=== PATIENT | female | born 1950 | race Caucasian/White ===

== ENCOUNTER 2017-04-15 14:39 | Emergency (ER) | payer MEDICARE, MEDICAID, SELFPAY ==
[2017-04-15 14:39] VITALS: BP 157/71; PULSE 132; RESP 18; TEMP 36.9; O2SAT 94; BMI 24.0
[2017-04-15 14:42] VITALS: BP 134/87
--- NOTE | 2017-04-15 14:58 | EKG12_ITS ---
Test Reason : FALL Blood Pressure : / mmHG Vent. Rate : 106 BPM Atrial Rate : 106 BPM P-R Int : 146 ms QRS Dur : 066 ms QT Int : 334 ms P-R-T Axes : 071 045 070 degrees QTc Int : 443 ms Sinus tachycardia with Premature atrial complexes Otherwise normal ECG Confirmed by SONU HUGHES, JOSEPH ([id number]), design editor DEON GUNDERSON ([id number]) on 04/18/2017 11:22:59 AM Referred By: DANAE Confirmed By:JOSEPH ASCENCIO MD
--- NOTE | 2017-04-15 14:58 | CT_ITS ---
STUDY: CT BRAIN WITHOUT CONTRAST REASON FOR EXAM: Female, 67 years old. Head injury following a fall. RADIATION DOSAGE (If Supplied By Facility): CTDIvol = ( 44.99 ) mGy, DLP = ( 796.11 ) mGycm TECHNIQUE: Transaxial CT imaging of the brain was performed without administration of intravenous contrast material. Individualized dose optimization techniques were used for this CT. COMPARISON: None. FINDINGS: Normal soft tissue structures. Normal calvarium. Normal size ventricles and extra-axial spaces for the patient's age. Normal white matter tracts of the cerebral hemispheres. Normal basal ganglia and thalami. Normal brainstem. Normal cerebellum. There is no intracranial hemorrhage. There are no findings of an acute ischemic infarction. Atherosclerotic calcification of the cavernous portions of the internal carotid arteries bilaterally. Normal visualized paranasal sinuses. CT/Brain/Head without Contrast IMPRESSION: Normal unenhanced CT scan of the brain. Electronically Signed: Eyal Roa MD at 15:58 EST Tel [phone], Service support ,
--- NOTE | 2017-04-15 14:59 | RAD_ITS ---
STUDY: X-RAY - LEFT HUMERUS REASON FOR EXAM: Female, 67 years old. Left upper extremity pain and bruising following a recent fall. TECHNIQUE: 2 view(s) of the humerus. COMPARISON: None. FINDINGS: Normal visualized humerus. There is no demonstrated fracture or osseous destructive process. Calcific tendinitis. RAD/Humerus min 2 Views IMPRESSION: Calcific tendinitis. Electronically Signed: Eyal Roa MD at 15:53 EST Tel [phone], Service support ,
[2017-04-15] MEDS: 0.9% Normal Saline 1,000 ML 1000 ML IV (15:26)
[2017-04-15 15:27] VITALS: PULSE 110; RESP 19; O2SAT 93
[2017-04-15 15:36] LABS: Absolute Lymphocyte Count 1.83 X10^3/ul (0.83-4.51); Absolute Neutrophil Count 4.2 X10^3/uL (2.0-7.7); Basophil# 0.02 X10^3/uL; Basophil% 0.3 % (0-1); Eosinophil# 0.04 X10^3/uL; Eosinophils% 0.6 % (0-5); Hematocrit 46.6 % (37-47); Lymphocyte # 1.83 X10^3/ul (4.0); Mean Corp Hgb Conc 34.3 g/gl (32-36); Mean Corpuscular Hgb 31.6 pg (27.0-32.0); Mean Corpuscular Volume 92.1 fL (81-99); Mean Platelet Vol. 9.8 fl (6.2-12.0); Monocyte# 0.65 X10^3/uL; Monocyte% 9.6 % (0-10); Neutrophil # 4.23 X10^3/uL (2.7-7.7); Neutrophil % 62.4 % (47-70); Platelet Count 248 K/mm3 (150-450); RBC Distribution Width CV 12.9 % (11.6-14.6); Red Blood Count 5.06 M/mm3 (4.2-5.4); White Blood Count 6.8 K/mm3 (4.4-11.0)
[2017-04-15 15:42] LABS: POSITIVE COUNT NO; POSITIVE DIFFERENTIAL NO; POSITIVE MORPHOLOGY NO
[2017-04-15 15:47] LABS: Anion Gap 9 (5-15); BUN 11 mg/dL (7-18); BUN/Creat Ratio 12.6 RATIO (10-20); Chloride 101 mmol/L (98-107); Creatinine, Serum 0.88 mg/dL (0.55-1.02); EST Glomerular Filtration Rate 69 mL/min (>60); Est Glom Filt Rate - Afr Amer 83 mL/min (>60); Estimated Creatinine Clearance 59.67 ml/min; Glucose 112 mg/dL (70-110); Potassium 4.2 mmol/L (3.5-5.1); Sodium Level 134 mmol/L (136-145)
--- NOTE | 2017-04-15 16:53 | ED.VISSUMM ---
- ER Visit Summary Date of Service: 04/15/17 Chief Complaint: Fall History of Present Illness: The patient is a [address] Leary. She reports that 2 days ago she stood up from the commode was very lightheaded and fell forward in 2 the shower. She hit her head. She states that she saw stars and was days. She did not have a loss of consciousness. She is not on blood thinners. However, she reports she has a headache it is 8 out of 10 severity. She also has left shoulder pain is 8 out of 10 severity. She denies any neck, back, wrist, or hip pain. States that she has been nauseated since that time. She has not vomited. Physical Examination: Vitals: 98.5, 134/87, 134, 19, 93% on room air which is not hypoxic. Head: Superficial laceration over her left eyebrow with minimal surrounding contusion. Mild tenderness palpation over the right parietal area of her scalp. Neck: No vertebral tenderness. Full ROM without difficulty. Cleared by NEXUS criteria. Back: No vertebral tenderness. General: A&O x 3. NAD. Cardiovascular exam: Regular rate and rhythm, no murmur, rub or gallop. Respiratory exam: Chest nontender. No crepitus. Clear to auscultation bilaterally. No wheezes or stridor. Abdominal exam: Soft, nontender, nondistended, normal bowel sounds. No pain in RUQ or LUQ specifically. No peritoneal signs. Extremity: Large contusion over her left deltoid with mild tenderness palpation. Decreased range of motion secondary to pain. Test Results: Due to the patient's tachycardia and EKG was obtained. Shows sinus tachycardia at 106 with PACs and no acute changes. CBC is marked for hemoglobin of 16. Chem-7 is more for sodium 134 and glucose of 112. CT brain shows no acute disease. Left shoulder x-ray shows calcific tendinitis and no acute disease. Emergency Department Course and Treatment: Patient refused pain and nausea medications. She is resting comfortably. Treatment Plan: She will be discharged with [place] and Zofran. Instructed to follow-up her primary care physician 1 week for another exam. Return to the emergency department for any worsening symptoms. Disposition: To home in improved and stable condition. Impression: 1. Fall. 2. Concussion. 3. Contusion left shoulder. 4. Sinus tachycardia. This note was generated with [employer] dictation software. It may contain incorrect words, spelling, and punctuation that were not noted in review of the chart prior to signing ED Disposition - Plan for ED Patient: Chief Complaint: Fall Instructions: ED Shoulder Pain UKO, ED Concussion Prescriptions: Hydrocodone Bitart/Apap 5-325 [[place] 5/325] 1 - 2 tablet PO Q4H PRN PRN #20 tablet PRN Reason: Pain Ondansetron [Zofran Odt] 4 mg PO Q8H PRN PRN #10 tablet PRN Reason: Nausea Docusate Sodium [Colace] 100 mg PO DAILY #20 capsule Referrals: Carisa Boggs, ADMINISTRATIVE EXECUTIVE-C [Primary Care Provider] - 1 Week
--- NOTE | 2017-04-15 16:58 | ED.DCSUM_ITS ---
- ER Visit Summary Date of Service: 04/15/17 Chief Complaint: Fall History of Present Illness: The patient is a [address] Leary. She reports that 2 days ago she stood up from the commode was very lightheaded and fell forward in 2 the shower. She hit her head. She states that she saw stars and was days. She did not have a loss of consciousness. She is not on blood thinners. However, she reports she has a headache it is 8 out of 10 severity. She also has left shoulder pain is 8 out of 10 severity. She denies any neck, back, wrist, or hip pain. States that she has been nauseated since that time. She has not vomited. Physical Examination: Vitals: 98.5, 134/87, 134, 19, 93% on room air which is not hypoxic. Head: Superficial laceration over her left eyebrow with minimal surrounding contusion. Mild tenderness palpation over the right parietal area of her scalp. Neck: No vertebral tenderness. Full ROM without difficulty. Cleared by NEXUS criteria. Back: No vertebral tenderness. General: A&O x 3. NAD. Cardiovascular exam: Regular rate and rhythm, no murmur, rub or gallop. Respiratory exam: Chest nontender. No crepitus. Clear to auscultation bilaterally. No wheezes or stridor. Abdominal exam: Soft, nontender, nondistended, normal bowel sounds. No pain in RUQ or LUQ specifically. No peritoneal signs. Extremity: Large contusion over her left deltoid with mild tenderness palpation. Decreased range of motion secondary to pain. Test Results: Due to the patient's tachycardia and EKG was obtained. Shows sinus tachycardia at 106 with PACs and no acute changes. CBC is marked for hemoglobin of 16. Chem-7 is more for sodium 134 and glucose of 112. CT brain shows no acute disease. Left shoulder x-ray shows calcific tendinitis and no acute disease. Emergency Department Course and Treatment: Patient refused pain and nausea medications. She is resting comfortably. Treatment Plan: She will be discharged with [place] and Zofran. Instructed to follow-up her primary care physician 1 week for another exam. Return to the emergency department for any worsening symptoms. Disposition: To home in improved and stable condition. Impression: 1. Fall. 2. Concussion. 3. Contusion left shoulder. 4. Sinus tachycardia. This note was generated with [employer] dictation software. It may contain incorrect words, spelling, and punctuation that were not noted in review of the chart prior to signing ED Disposition - Plan for ED Patient: Chief Complaint: Fall Instructions: ED Shoulder Pain UKO, ED Concussion Prescriptions: Hydrocodone Bitart/Apap 5-325 [[place] 5/325] 1 - 2 tablet PO Q4H PRN PRN #20 tablet PRN Reason: Pain Ondansetron [Zofran Odt] 4 mg PO Q8H PRN PRN #10 tablet PRN Reason: Nausea Docusate Sodium [Colace] 100 mg PO DAILY #20 capsule Referrals: Carisa Boggs, [employer]SP[employer] DRIVER-C [Primary Care Provider] - 1 Week
[2017-04-15 17:06] VITALS: BP 139/77; PULSE 81; RESP 16; O2SAT 98
== END 2017-04-15 17:07 | disposition home or self-care (01) ==
PROVIDERS: Emergency Provider Emergency Medicine; Family Provider Nurse Practitioner Family; PCP Nurse Practitioner Family
DX: S06.0X0A Concussion without loss of consciousness, initial encounter (principal); S01.112A Laceration without foreign body of left eyelid and periocular area, initial encounter; S40.012A Contusion of left shoulder, initial encounter; R00.0 Tachycardia, unspecified; I49.1 Atrial premature depolarization; M75.32 Calcific tendinitis of left shoulder; R40.2410 Glasgow coma scale score 13-15, unspecified time; J44.9 Chronic obstructive pulmonary disease, unspecified; I10 Essential (primary) hypertension; W18.2XXA Fall in (into) shower or empty bathtub, initial encounter; Y93.9 Activity, unspecified; Y92.9 Unspecified place or not applicable; Z90.89 Acquired absence of other organs; Z90.49 Acquired absence of other specified parts of digestive tract; Z90.710 Acquired absence of both cervix and uterus; Z72.89 Other problems related to lifestyle; F17.210 Nicotine dependence, cigarettes, uncomplicated; Z79.899 Other long term (current) drug therapy
CPT/HCPCS: 70450; 73060; 80048; 85025; 93005; 96360; 96361; 99283

== ENCOUNTER → 2017-07-05 10:24 | Outpatient (CLI) | payer MEDICARE, MEDICAID, SELFPAY ==
--- NOTE | 2017-07-05 10:54 | RAD_ITS ---
STUDY: X-RAY CHEST REASON FOR EXAM: Female, 67 years old. Preoperative evaluation. TECHNIQUE: PA and lateral views of the chest. COMPARISON: Comparison is made with prior study dated March 29, 2017. FINDINGS: Stable mild increased linear markings at the lung bases suggestive scarring. Scattered calcified granulomas. There is no demonstrated pleural abnormality. Normal size heart. Normal mediastinum and tanya. Normal visualized pulmonary arteries. There is atherosclerotic calcification of the aortic arch with tortuosity. There is demineralization of the osseous structures. Increased kyphosis. Normal visualized ribs, clavicles, and shoulders. There is no demonstrated abnormality of the visualized soft tissue structures of the upper abdomen. RAD/Chest PA and Lateral IMPRESSION: Stable examination. No acute abnormality is seen. Electronically Signed: Eyal Roa MD at 13:57 EDT Tel [phone], Service support ,
--- NOTE | 2017-07-05 11:01 | EKG12_ITS ---
Test Reason : PREOP Blood Pressure : / mmHG Vent. Rate : 085 BPM Atrial Rate : 085 BPM P-R Int : 156 ms QRS Dur : 080 ms QT Int : 340 ms P-R-T Axes : 063 027 057 degrees QTc Int : 404 ms Normal sinus rhythm Nonspecific ST segment abnormality Abnormal ECG Confirmed by SONU HUGHES, JOSEPH ([id number]), sound editor DEON GUNDERSON ([id number]) on 07/08/2017 2:45:47 PM Referred By: Bryant Do Confirmed By:JOSEPH ASCENCIO MD
[2017-07-05 11:37] LABS: Hematocrit 45.8 % (37-47); Hemoglobin 15.8 g/dl (12.0-15.0); Mean Corp Hgb Conc 34.5 g/gl (32-36); Mean Corpuscular Hgb 32.4 pg (27.0-32.0); Mean Platelet Vol. 10.1 fl (6.2-12.0); Platelet Count 259 K/mm3 (150-450); RBC Distribution Width CV 13.4 % (11.6-14.6); RBC Distribution Width SD 44.4 fl (35.1-43.9); Red Blood Count 4.87 M/mm3 (4.2-5.4); White Blood Count 5.8 K/mm3 (4.4-11.0)
[2017-07-05 11:39] LABS: Scan Indicated on CBC? Y/N NO
[2017-07-05 11:52] LABS: Anion Gap 8 (5-15); BUN 11 mg/dL (7-18); BUN/Creat Ratio 11.9 RATIO (10-20); Calcium,Total 8.9 mg/dL (8.5-10.1); Chloride 104 mmol/L (98-107); Creatinine, Serum 0.93 mg/dL (0.55-1.02); EST Glomerular Filtration Rate 64 mL/min (>60); Est Glom Filt Rate - Afr Amer 78 mL/min (>60); Glucose 104 mg/dL (74-106); Potassium 4.5 mmol/L (3.5-5.1); Sodium Level 136 mmol/L (136-145)
== END ==
PROVIDERS: Family Provider Nurse Practitioner Family; PCP Nurse Practitioner Family; Visit Provider Physician Assistant
DX: Z01.810 Encounter for preprocedural cardiovascular examination (principal); Z01.818 Encounter for other preprocedural examination; F17.200 Nicotine dependence, unspecified, uncomplicated
CPT/HCPCS: 36415; 71046; 80048; 85027; 93005

== ENCOUNTER → 2017-12-10 07:14 | Outpatient (CLI) | payer MEDICARE, MEDICAID, SELFPAY ==
--- NOTE | 2017-12-10 07:18 | BI_ITS ---
MAMMOGRAPHY - BILATERAL SCREENING REASON FOR EXAM: Female, 67 years old. Routine annual screening examination. PERTINENT HISTORY: Aunt with breast cancer. Prior right excisional breast biopsy. TECHNIQUE: Digital bilateral breast alyssia (3D mammographic acquisition) in the CC and MLO projections. 2-D mediolateral oblique (MLO) and craniocaudad (CC) views of both breasts were obtained. CAD: Full Field Digital Mammography with Computer Added Detection was performed. COMPARISON: Comparison is made with prior study dated August 04, 2015 and May 27, 2014. FINDINGS: Breast Composition: The breasts are almost entirely fatty. A tissue clip marker is seen in the upper lateral deep portion of the right breast. There are no dominant masses or suspicious calcifications. No other significant abnormalities are identified. There has been no significant change since the prior study. BI/SCREENING MAMM (CAD), BILAT IMPRESSION: Stable bilateral screening mammogram. Yearly follow-up mammogram recommended. (A) ASSESSMENT CATEGORY: BIRADS Category 2: Benign. A letter regarding these results will be sent to the patient by the facility within 30 days. Approximately 10% of breast cancers are not detected by mammography. A normal mammogram should not delay biopsy of a clinically suspicious abnormality. [id number] Electronically Signed: Eyal Roa MD at 8:27 EDT Tel [phone], Service support ,
== END ==
PROVIDERS: Family Provider Nurse Practitioner Family; PCP Nurse Practitioner Family
DX: Z12.31 Encounter for screening mammogram for malignant neoplasm of breast (principal)
CPT/HCPCS: 77063; 77067

== ENCOUNTER 2018-02-02 19:40 | Emergency (ER) | payer OTHER, SELFPAY ==
[2018-02-02 19:40] VITALS: BP 121/87; PULSE 97; RESP 15; TEMP 36.4; BMI 24.1
--- NOTE | 2018-02-02 19:52 | RAD_ITS ---
STUDY: X-RAY - LEFT FOOT CLINICAL: Female, 67 years old. Trauma TECHNIQUE: 3 view(s) of the foot. COMPARISON: None. FINDINGS: There is no evidence of acute fracture or dislocation. There is an osteochondroma noted in the fifth metatarsal. There are erosive changes noted in the fifth toe. There are moderate degenerative changes in the midfoot. RAD/Foot min 3 Views IMPRESSION: No acute fracture or dislocation. Moderate degenerative changes. Osteochondroma of the fifth metatarsal. Erosive changes in the left fifth toe. Electronically Signed: Arun Rowland, at 20:16 EST Tel , Service support ,
--- NOTE | 2018-02-02 20:04 | ED.VISSUMM ---
- ER Visit Summary Date of Service: 02/02/18 Chief Complaint: Foot injury History of Present Illness: The patient is a 67 F a chair fell on her foot while she was outside smoking at a restaurant. She had no other complaints. Physical Examination: She has chronic deformity of her toes, she has tenderness over the fourth digit as well as distal fourth metatarsal region. No swelling or erythema. Emergency Department Course and Treatment: X-ray of the foot shows chronic deformity but no obvious fracture. She was reassured I will discharge in stable condition Impression: Left foot contusion This note was generated with [employer] dictation software. It may contain incorrect words, spelling, and punctuation that were not noted in review of the chart prior to signing ED Disposition - Plan for ED Patient: Disposition: Home or Assisted Living Chief Complaint: Other, Pain/Inj Instructions: ED Contusion Foot Referrals: Komal Jara DPM [STAFF PHYSICIAN] - As Needed
--- NOTE | 2018-02-02 20:09 | ED.DCSUM_ITS ---
- ER Visit Summary Date of Service: 02/02/18 Chief Complaint: Foot injury History of Present Illness: The patient is a 67 F a chair fell on her foot while she was outside smoking at a restaurant. She had no other complaints. Physical Examination: She has chronic deformity of her toes, she has tenderness over the fourth digit as well as distal fourth metatarsal region. No swelling or erythema. Emergency Department Course and Treatment: X-ray of the foot shows chronic deformity but no obvious fracture. She was reassured I will discharge in stable condition Impression: Left foot contusion This note was generated with [employer] dictation software. It may contain incorrect words, spelling, and punctuation that were not noted in review of the chart prior to signing ED Disposition - Plan for ED Patient: Disposition: Home or Assisted Living Chief Complaint: Other, Pain/Inj Instructions: ED Contusion Foot Referrals: Komal Jara DPM [STAFF PHYSICIAN] - As Needed
[2018-02-02] MEDS: Acetaminophen 500 MG Tablet 1000 MG PO (20:21)
--- NOTE | 2018-02-02 20:26 | ED.RN ---
DISCHARGE INSTRUCTIONS GIVEN TO AND REVIEWED WITH PATIENT, PATIENT DENIES QUESTIONS OR CONCERNS AND VOICES UNDERSTANDING OF DISCHARGE INSTRUCTIONS. PT AMBULATES OUT OF ROOM WITHOUT DIFFICULTY.
== END 2018-02-02 20:27 | disposition home or self-care (01) ==
PROVIDERS: Emergency Provider Emergency Medicine; Family Provider Nurse Practitioner Family; PCP Nurse Practitioner Family
DX: S90.32XA Contusion of left foot, initial encounter (principal); M20.62 Acquired deformities of toe(s), unspecified, left foot; W22.8XXA Striking against or struck by other objects, initial encounter; Y93.9 Activity, unspecified; Y92.9 Unspecified place or not applicable; I10 Essential (primary) hypertension; Z79.899 Other long term (current) drug therapy; Z72.0 Tobacco use
CPT/HCPCS: 73630; 99283

== ENCOUNTER → 2018-02-27 14:41 | Outpatient (CLI) | payer MEDICARE, MEDICAID, SELFPAY ==
[2018-02-18 14:26] VITALS: BMI 24.6
--- NOTE | 2018-02-27 14:43 | ECHOD_ITS ---
Reason For Study: CHEST PAIN Procedure This was a 2D Doppler, Color Flow transthoracic echocardiogram. Exam performed in department. Left Ventricle Normal size and thickness. The estimated ejection fraction is 65 %. Stage 1 diastolic dysfunction. No regional wall motion abnormalities noted. Right Ventricle Normal size and thickness. Normal systolic function. Atria Normal left atrium. Normal right atrium. Normal atrial septum. Mitral Valve The mitral valve is structurally normal. No prolapse or stenosis seen. Tricuspid Valve Normal tricuspid valve. Trivial tricuspid valve insufficiency. Right ventricular systolic pressure estimated to be 38 mmHg. Aortic Valve Trisinus/trileaflet aortic valve. Normal aortic valve. Pulmonic Valve Normal pulmonic valve. Great Vessels Normal aortic root. Mild atherosclerosis of the aortic arch. Normal inferior vena cava. Inferior vena cava collapse with sniff. Pericardium/Pleural No pericardial effusion. MMode/2D Measurements & Calculations LVIDd: 4.0 cm IVSd: 0.94 cm LAV(MOD-bp): 58.3 ml LVIDs: 3.0 cm LVPWd: 1.1 cm LAV(MOD-bp) Indexed: 33.8 ml/m2 RVDd: 3.2 cm FS: 26.0 % LAV(MOD-sp2): 69.5 ml LAV(MOD-sp4): 44.9 ml SV(MOD-sp4): 50.6 ml SV(sp4-el): 54.7 ml LVAd ap4: 28.6 cm2 EDV(MOD-sp4): 88.8 ml EDV(sp4-el): 94.4 ml LVAs ap4: 16.9 cm2 ESV(MOD-sp4): 38.2 ml ESV(sp4-el): 39.7 ml EF(MOD-sp4): 57.0 % EF(sp4-el): 58.0 % LA A4 area: 16.7 cm2 RA A4 area: 11.2 cm2 Time Measurements MV dec time: 0.20 sec Doppler Measurements & Calculations MV E max sarkis: 101.5 cm/sec Lat Peak E' Sarkis: 9.1 cm/sec Med Peak E' Sarkis: 7.2 cm/sec MV A max sarkis: 136.0 cm/sec E/E' lat: 11.2 E/E' med: 14.1 MV E/A: 0.75 Ao V2 max: 151.0 cm/sec LV V1 max: 132.0 cm/sec PA V2 max: 82.6 cm/sec Ao max P.1 mmHg LV V1 max P.0 mmHg TR max sarkis: 287.4 cm/sec TR max P.0 mmHg Interpretation Summary The estimated ejection fraction is 65 %. Stage 1 diastolic dysfunction. Trivial tricuspid valve insufficiency. Right ventricular systolic pressure estimated to be 38 mmHg. There is no comparison study available. The study was technically difficult. Ordering Physician: Adam Katz Referring Physician: MCKENNA JESUS Performed By: Debbie Mas RDCS
--- OUTSIDE RECORDS SUMMARY | 2018-04-15 12:00 | XMS RPT_ITS ---
:1950 Author Organization OHIP Support Name Relationship Address Phone R Unavailable Unavailable Unavailable AL, LELA Unavailable [address] + [place] [address] AL, KRYSTINA Unavailable [address] + [place] [address] R Unavailable Unavailable Unavailable AL, LELA Unavailable [address] + [place] [address] AL, KRYSTINA Unavailable [address] + [place] [address] R Unavailable Unavailable Unavailable AL, LELA Unavailable [address] + [place] [address] AL, KRYSTINA Unavailable [address] + [place] [address] R Unavailable Unavailable Unavailable AL, LELA Unavailable [address] + [place] [address] AL, KRYSTINA Unavailable [address] + [place] [address] R Unavailable Unavailable Unavailable AL, LELA Unavailable [address] + [place] [address] AL, KRYSTINA Unavailable [address] + [place] [address] R Unavailable Unavailable Unavailable AL, LELA Unavailable [address] + [place] [address] AL, KRYSTINA Unavailable [address] + [place] [address] R Unavailable Unavailable Unavailable AL, LELA Unavailable [address] + [place] [address] AL, KRYSTINA Unavailable [address] + [place] [address] R Unavailable Unavailable Unavailable AL, LELA Unavailable [address] + [place] [address] AL, KRYSTINA Unavailable [address] + [place] [address] R Unavailable Unavailable Unavailable ALGARRICKLELA Unavailable [address] + [place], [place] . KRYSTINA MELENDEZ Unavailable . + ., . . R Unavailable Unavailable Unavailable AL LELA Unavailable [address] + [place] KRYSTINA MELENDEZ Unavailable Unavailable + R Unavailable Unavailable Unavailable LA LELA Unavailable [address] + [place] PAT[place] MELENDEZA Unavailable Unavailable + R Unavailable Unavailable Unavailable AL LELA Unavailable [address] [phone]~[facility] [place], [place] ROMY MELENDEZNDA Unavailable [address] [phone] [place], [place] R Unavailable Unavailable Unavailable AL LELA Unavailable [address] [phone]~[facility] [place] KRYSTINA MELENDEZ Unavailable [address] [phone]~[facility] [place] R Unavailable Unavailable Unavailable AL LELA Unavailable [address] [phone]~[facility] [place] . PATRICE MELENDEZA Unavailable [address] [phone] [place], [place] . Care Team Providers Name Role Phone Adam Katz Attending Unavailable Adam Katz Referring Unavailable Lisandro Lama Attending Unavailable Ambrose MANDUJANO Carisa Primary Care Unavailable Adam Katz Attending Unavailable Adam Katz Referring Unavailable Carisa Ortega Primary Care Unavailable Adam Katz Attending Unavailable Adam Katz Referring Unavailable Ambrose MANDUJANO, Carisa Primary Care Unavailable Adam Katz Attending Unavailable Carisa Ortega Referring Unavailable CLIN[facility], [facility] Attending Unavailable [facility], [facility] Referring Unavailable Ambrose MANDUJANO, Carisa Primary Care Unavailable Deep Ascencio Attending Unavailable Bryant Do Referring Unavailable Bryant Do Attending Unavailable Bryant Do Referring Unavailable Ambrose MANDUJANO, Carisa Primary Care Unavailable Adam Katz Attending Unavailable Adam Katz Referring Unavailable Adam Katz Attending Unavailable Swihart PROFESSOR OF ENGLISH, Carisa Referring Unavailable Adam Katz Attending Unavailable Adam Katz Ref[facility] Unavailable Swihart PROFESSOR OF ENGLISH, Carisa Consulting Unavailable Thelma Alberto Hawkins Attending Unavailable Swihart PROFESSOR OF ENGLISH, Carisa Referring Unavailable Adam Katz Attending Unavailable Adam Katz Referring Unavailable Swihart PROFESSOR OF ENGLISH, Carisa Primary Care Unavailable Adam Katz Consulting Unavailable Swihart PROFESSOR OF ENGLISH, Carisa Primary Care Unavailable Deep Wilburn Attending Unavailable PROBLEMS PROBLEMS DATE TYPE CONDITION / CODE ATTENDING STATUS SOURCE 03/28/2018 Unknown R94.39 - Abnormal Adam Katz Active [place] result of other [facility] function study / Repository R94.39(ICD-10) 03/07/2018 Unknown R07.89 - Other chest Adam Katz Active [place] pain / R07.89(ICD-10) [facility] Repository 03/07/2018 Unknown R06.09 - Other forms Adam Katz Active [place] of dyspnea / Community R06.09(ICD-10) Hospital Repository 03/07/2018 Unknown J44.9 - Chronic Adam Katz Active [place] obstructive pulmonary Community disease, unspecified / Hospital J44.9(ICD-10) Repository 03/26/2018 Unknown R07.9 - Chest pain, Adam Katz Active [place] [facility] unspecified / Community R07.9(ICD-10) Hospital Repository 02/18/2018 Unknown E78.5 - Adam Katz Active [place] Hyperlipidemia, Community unspecified / Hospital E78.5(ICD-10) Repository 02/18/2018 Unknown I10 - Essential Adam Katz Active [place] [facility] (primary) hypertension Community / I10(ICD-10) Hospital Repository 12/10/2017 Unknown Z12.31 - Encounter for CLINIC, [facility] Active [place] [facility] of [facility] / Repository Z12.31(ICD-10) 08/16/2017 Unknown R94.31 - Abnormal [place], Active [place] electrocardiogram [facility] [ECG] [EKG] / Hospital R94.31(ICD-10) Repository 08/13/2017 Unknown Z01.810 - Encounter Bryant Do Active [place] for preprocedural [facility] Hospital examination / Repository Z01.810(ICD-10) 04/15/2017 Unknown M25.519 - Pain in [place], Active [place] unspecified shoulder / [place] Community M25.519(ICD-10) Hospital Repository PROCEDURES PROCEDURES No Procedure Records FoundRESULTS RESULTS CARDIOLOGY VISIT Observed: 03/07/2018 Status: F Source: SARAH REPORT 10:12 AM [facility] REPOSITORY [facility] [address] [place] [address] OFFICE VISIT Date of Service: 03/04/18 MR#: [id number] Acct: [id number] Name: BECKI MELENDEZ Rep #: [id number] : 1950 Provider: KALINA Renee Age/Sex: 67/F Location: [facility] Status: Signed HPI HPI Details: BECKI MELENDEZ, is a 67 F who presents to the office today for a cardiovascular outpatient follow-up. He has a history of hypertension, hyperlipidemia, syncope (when standing after urinating), chest pressure, COPD, and tobacco abuse with 3-4 cigarettes/day or 1-2 packs/day for the last 50 years. She does not have a history of diabetes or previous known coronary artery disease, TIA, or CVA. After last office visit she was started on atenolol 25 mg p.o. daily. She presents today for a blood pressure check regarding this change. She underwent an echocardiogram that showed ejection fraction of 65% with stage I diastolic dysfunction. She underwent a stress echocardiogram to further evaluate chest pressure, the results are currently pending. She continues with chest pressure with rest and activity. She states lightheadedness and dizziness with position changes. She denies any SOB. She states ongoing palpitations off and on since . She denies edema, claudication, orthopnea, PND, fever, chills, blood in urine, blood in stool, myalgia, or fatigue. Intake Vital Signs03/04/18 Height 5 ft 5 in 03/04/18 Weight: 147 lb 03/04/18 Body Mass Index (BMI) 24.4 03/04/18 Blood Pressure 148/72 H Intake Visit Reasons: 2 WK BP CK PER DJN Waterproofing Mixer Required: No Accompanied by: None Is patient in pain?: No Allergies codeine Adverse Reaction (Intermediate, Verified 03/04/18 12:07) vomiting mushrooms Adverse Reaction (Severe, Uncoded 02/18/18 14:41) Vomiting, head pressure Medications Albuterol Inhaler [Ventolin Hfa (SP)] 1 - 2 puff INHALATION Q4H PRN PRN 04/15/17 [History Confirmed 03/04/18] Atorvastatin Calcium 20 mg PO QHS 04/15/17 [History Confirmed 03/04/18] Budesonide/Formoterol Fumarate [Symbicort 160-4.5 Mcg Inhaler] 12 gm IH BID 04/15/17 [History Confirmed 03/04/18] Cholecalciferol (Vitamin D3) [Vitamin D] 50,000 unit PO ROQUE 04/15/17 [History Confirmed 03/04/18] Fluoxetine HCl [Prozac] 40 mg PO DAILY 04/15/17 [History Confirmed 03/04/18] latanoprost (PF) 0.005 % eye drops 1 drp OPHTHALMIC QPM 02/17/18 [History Confirmed 03/04/18] aspirin 81 mg tablet,delayed release 81 mg PO DAILY #30 tab 02/18/18 [Rx Confirmed 03/04/18] atenolol 25 mg tablet 25 mg PO DAILY 02/18/18 [History Confirmed 03/04/18] clopidogrel 75 mg tablet 75 mg PO DAILY #30 tab 03/04/18 [Rx] losartan 25 mg tablet 50 mg PO DAILY tab 03/04/18 [History Confirmed 03/04/18] Ejection fraction %: 65 to 70 PFSH Medical History Dyspnea on exertion (Acute) Abnormal stress echo (Acute) COPD (chronic obstructive pulmonary disease) (Chronic) Hypertension (Chronic) Hyperlipidemia (Chronic) Chest discomfort (Acute) Dizziness (Acute) History of hysterectomy (Chronic) history of surgery on fingers (Chronic) Surgical History History of appendectomy (Chronic) History of cervical spinal surgery (Chronic) History of cholecystectomy (Chronic) History of left knee surgery (Chronic) History of shoulder surgery (Chronic) Family History Father , Age 93 S/P CABG x 1 CAD (coronary artery disease) Mother Pacemaker History of mechanical aortic valve replacement Hypertension Diabetes Hyperlipidemia Social History Smoking Status: Current every day smoker alcohol intake: current alcohol intake frequency: holidays/special occasions only caffeine: Yes Type: coffee Number of servings: 2 ROS Const Const: Negative for fatigue, weakness, body ache, fever(s) or chills ENT ENT: Positive for dizziness Cardio Chest Pain: Yes Palpitations: No Edema: None Muscle aches with walking: None Resp Respiratory: Negative for SOB with activity, SOB at rest, SOB orthopnea\SOB lying down or paroxysmal nocturnal dyspnea GI GI: Negative nausea, black,tarry stools, bright, red blood in stools or vomiting blood/hematemesis : Negative for hematuria or frequent nighttime urination/ nocturia Musc Musc: Negative for muscle aches/ myalgia Skin Skin: Negative non-healing lesions or rash Neuro Neuro: Positive for dizziness and lightheadedness; negative for weakness, near syncope, syncope or orthostatic symptoms Endo Endo: Negative for fatigue Allergy Allergy/Immunology: Negative for rash Cardiology Exam Const Appearance: cooperative, healthy appearing and no acute distress Nutritional Appearance: well nourished and average body habitus Orientation: alert, oriented x3 and oriented to person Head Head: normal to inspection, atraumatic and normocephalic Nose: external nose normal Face and Sinus: face symmetric Mouth: oral mucosae normal Eyes General: appearance normal, both eyes and all related structures Eyelids: eyelids normal Conjunctivae: conjunctivae normal Pupils: PERRL and normal by confrontation EOM: EOM intact bilaterally Neck Neck: normal visual inspection and full ROM Carotids: normal carotid upstroke Chest Chest inspection: normal inspection of the chest, symmetric chest movement and normal respiratory effort Auscultation: Bilateral: Clear to Auscultation Cardio Palpation: normal PMI Rate: regular rate Rhythm: regular rhythm Heart sounds: S1 normal and S2 normal; negative murmur, gallop or rub GI GI: normal to inspection, no hepatosplenomegaly and bowel sounds present Neuro General: alert, oriented x3, awake, CN's II-XI intact bilaterally and moves all extremities Skin Skin: no rashes or lesions noted Extremities Pulses: Normal: Right Posterior Tibial Pulse, Left Posterior Tibial Pulse, Right Radial Pulse, Left Radial Pulse Lower Extremity Edema: None: Bilateral Psych Psychological: normal affect Assessment AND Plan 1. Chest discomfort R07.89 Plan - [place] At the time of her office appointment her stress echocardiogram result was not finalized. By completion of this note her stress echocardiogram was considered to be abnormal. Because of this, she will undergo both a left and right heart catheterization for further evaluation. 2. Essential hypertension I10 Plan - [place] Her blood pressure remains elevated. She was asked to increase her losartan to 50 mg p.o. daily. 3. Hyperlipidemia, unspecified hyperlipidemia type E78.5 Plan - [place] She will continue current low-dose statin medication. Plan Detail Other Medications Changed: Additional Comments - [place] Discussed the above patient with Dr. Katz, he agrees with the plan of care. Thank you for allowing us to participate in the patients plan of care, if you have any questions please do not hesitate to call. This note was generated using a voice recognition system and there may be incorrect words, spelling or punctuation that were not noted when reviewing the office note prior to saving. Coding Level of Care Code Off vis,est,level 2 Diagnoses Chest discomfort R07.89 Essential hypertension I10 Hypertension type: essential hypertension Hyperlipidemia, unspecified hyperlipidemia type E78.5 Hyperlipidemia type: unspecified Coding Level of Care Code Off vis,est,level 2 Diagnoses Chest discomfort R07.89 Essential hypertension I10 Hypertension type: essential hypertension Hyperlipidemia, unspecified hyperlipidemia type E78.5 Hyperlipidemia type: unspecified 03/05/18 1243 <Electronically signed by Alberto ABRAHAM> Date Alberto ABRAHAM 03/07/18 1011<Electronically signed by Adam Katz MD> Cosigner Signature: Date (if applicable) Adam Katz MD CC: Carisa MANDUJANO OFFICE VISIT REPORT Observed: 03/07/2018 Status: F Source: SARAH 10:11 AM [place] [address]Ann[address] V[address] [place] [address] OFFICE VISIT Date of Service: 03/05/18 MR#: [id number] Acct: [id number] Patient: BECKI MELENDEZ Rep #: [id number] : 1950 Provider: Adam Katz MD Age/Sex: 67/F Location: 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 Chief Complaint: chest pressure Allergies codeine Adverse Reaction (Intermediate, Verified 03/04/18 12:07) vomiting mushrooms Adverse Reaction (Severe, Uncoded 02/18/18 14:41) Vomiting, head pressure Medications Albuterol Inhaler [Ventolin Hfa (SP)] 1 - 2 puff INHALATION Q4H PRN PRN 04/15/17 [History Confirmed 03/04/18] Atorvastatin Calcium 20 mg PO QHS 04/15/17 [History Confirmed 03/04/18] Budesonide/Formoterol Fumarate [Symbicort 160-4.5 Mcg Inhaler] 12 gm IH BID 04/15/17 [History Confirmed 03/04/18] Cholecalciferol (Vitamin D3) [Vitamin D] 50,000 unit PO ROQUE 04/15/17 [History Confirmed 03/04/18] Fluoxetine HCl [Prozac] 40 mg PO DAILY 04/15/17 [History Confirmed 03/04/18] latanoprost (PF) 0.005 % eye drops 1 drp OPHTHALMIC QPM 02/17/18 [History Confirmed 03/04/18] aspirin 81 mg tablet,delayed release 81 mg PO DAILY #30 tab 02/18/18 [Rx Confirmed 03/04/18] atenolol 25 mg tablet 25 mg PO DAILY 02/18/18 [History Confirmed 03/04/18] clopidogrel 75 mg tablet 75 mg PO DAILY #30 tab 03/04/18 [Rx] losartan 25 mg tablet 50 mg PO DAILY tab 03/04/18 [History Confirmed 03/04/18] Nursing Note Patient here for cath teaching. 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 NPO after midnight Th night, instructed which meds to take. Written instructions given. Pt watched heart cath teaching video. She will get labs and CXR done after viewing it. 03/07/18 1011 <Electronically signed by Adam Katz MD> Date Adam Guillermo Signature: Date (if applicable) CC: Greta White PROTHROMBIN TIME W/INR Collected: 03/07/2018 Status: F Source: SARAH 9:30 AM [facility] REPOSITORY TYPE CODE TESTS RESULT OUT OF RANGE REFERENCE UNITS LAB L300.4150 11.7-14.9 SECONDS Normal PROTIME 12.1 LAB L300.4200 Normal INR 0.9 Performed By: #### L300.3900, L300.4310 #### [facility] [address] [place], [place], [id number] PARTIAL THROMBOPLAST Collected: 03/07/2018 Status: F Source: SARAH TIME 9:30 AM [facility] REPOSITORY TYPE CODE TESTS RESULT OUT OF RANGE REFERENCE UNITS LAB L300.4310 24.1-36.2 Seconds Normal PTT 30.3 Performed By: #### L300.3900, L300.4310 #### [facility] [address] [place], [place], [address] CBC-COMPLETE BLOOD CNT Collected: 03/07/2018 Status: F Source: SARAH NO DIFF 9:30 AM [facility] REPOSITORY TYPE CODE TESTS RESULT OUT OF RANGE REFERENCE UNITS LAB L100.1000 4.4-11.0 K/mm3 Normal WBC 7.0 LAB L100.1200 4.2-5.4 M/mm3 Normal RBC 4.63 LAB L100.1300 12.0-15.0 g/dl Normal HGB 14.8 LAB L100.1400 37-47 % Normal HCT 44.6 LAB L100.1500 81-99 fL Normal MCV 96.3 LAB L100.1600 27.0-32.0 pg Normal MCH 32.0 LAB L100.1700 32-36 g/gl Normal MCHC 33.2 LAB L100.1810 11.6-14.6 % Normal RDW CV 13.0 LAB L100.1820 35.1-43.9 fl High RDW SD 45.1 LAB L100.1900 150-450 K/mm3 Normal PLT 268 LAB L100.2000 6.2-12.0 fl Normal MPV 10.9 Performed By: #### L100.0500 #### [facility] [address] [facility] [place], [place], [address] BASIC METABOLIC Collected: 03/07/2018 Status: F Source: SARAH PROFILE (BMP) 9:30 AM [facility] REPOSITORY TYPE CODE TESTS RESULT OUT OF RANGE REFERENCE UNITS LAB L501.0100 74-106 mg/dL Normal GLU 95 Result Comment: Please note revised GLUCOSE reference range effective 2017. LAB L501.1000 7-18 mg/dL Normal BUN 9 LAB L501.1100 0.55-1.02 mg/dL Normal CREAT,SERUM 0.75 Result Comment: The validity of the calculated GFR AND GFRAA in patients over 70 years has not been determined. Clinical correlation is essential. LAB L501.1110 >60 mL/min Normal EST GFR 82 Result Comment: Non- GFR Calc LAB L501.1115 >60 mL/min Normal EST GFR - AA 99 Result Comment: GFR Calc LAB L501.1300 10-20 RATIO Normal BUN/CRE 12.0 LAB L501.2200 8.5-10.1 mg/dL CA Normal 8.7 LAB L501.5300 136-145 mmol/L Low NA 135 LAB L501.5600 3.5-5.1 mmol/L K Normal 3.9 LAB L501.5900 98-107 mmol/L CL Normal 100 LAB L501.6100 21.0-32.0 mmol/L Normal CO2 23.0 LAB L501.6200 5-15 Normal GAP 12 Performed By: #### L500.2500 #### [facility] [address] [facility] [place], [address] BLOOD GASES BY CPS Collected: 03/07/2018 Status: F Source: SARAH 9:04 AM [facility] REPOSITORY TYPE CODE TESTS RESULT OUT OF RANGE REFERENCE UNITS LAB L9000.9990 Normal BLD GAS ART TYPE LAB L9001.1110 7.35-7.45 Normal pH - 7.38 I-STAT LAB L9001.1210 35-45 mmHg Normal pCO2 - 37.2 ISTAT LAB L9001.1310 75-100 mmHG Low PO2 56 I-STAT LAB L9001.2300 22-26 mmol/L Low HCO3 21.8 ISTAT LAB L9001.2400 -2 to +2 mmol/L Low BE ISTAT -3 LAB L9001.2415 mmol/L Normal TOTAL CO2 23 ISTAT LAB L9001.2425 95-99 % Low SO2 ISTAT 88 Performed By: #### L9000.0800 #### [facility] Point of Care [address] [place], [place] [id number] VENOUS BLOOD GAS Collected: 03/07/2018 Status: F Source: [place] 8:59 AM [facility] REPOSITORY TYPE CODE TESTS RESULT OUT OF RANGE REFERENCE UNITS LAB L9000.9990 Normal BLD GAS SHOLA TYPE LAB L9002.1110 7.32-7.42 Normal VBGpH - 7.38 I-STAT LAB L9002.1212 41-51 mmHg Low VBG pCO2 37.7 - ISTA LAB L9002.1310 25-40 mmHg Normal VBG PO2 33 I-STAT LAB L9002.2300 22-26 mmol/L Normal VBG HCO3 22 ISTAT LAB L9002.2400 -1.0-3.5 mmol/L Low VBG BE -3 ISTAT LAB L9002.2410 50-70 % Normal VBG SO2 62 ISTAT LAB L9002.2415 23-33 mmol/L Normal VBG O2 CT 23 ISTAT Performed By: #### L9000.0810 #### [facility] Point of Care [address] [place] [address] VENOUS BLOOD GAS Collected: 03/07/2018 Status: F Source: [place] 8:56 AM [facility] REPOSITORY TYPE CODE TESTS RESULT OUT OF RANGE REFERENCE UNITS LAB L9000.9990 Normal BLD GAS SHOLA TYPE LAB L9002.1110 7.32-7.42 Normal VBGpH - 7.37 I-STAT LAB L9002.1212 41-51 mmHg Low VBG pCO2 37.4 - ISTA LAB L9002.1310 25-40 mmHg Normal VBG PO2 31 I-STAT LAB L9002.2300 22-26 mmol/L Normal VBG HCO3 22 ISTAT LAB L9002.2400 -1.0-3.5 mmol/L Low VBG BE -4 ISTAT LAB L9002.2410 50-70 % Normal VBG SO2 59 ISTAT LAB L9002.2415 23-33 mmol/L Normal VBG O2 CT 23 ISTAT Performed By: #### L9000.0810 #### [facility] Point of Care [address] [place] [address] CHEST PA AND LATERAL Observed: 03/05/2018 Status: F Source: [place] 2:02 PM [facility] REPOSITORY [facility] Imaging Services [address] [place] [address] Chest PA and Lateral MR#: [id number] Acct: [id number] Name: BECKI MELENDEZ Shy Rep #: [id number] : 1950 F 67 From: Sanjeev Momin MD PCP: [facility] Status: PRE SDC Study: Chest PA and Lateral Date of Exam: 03/05/18 Exam# [id number] Ordering Dr: Adam Katz MD STUDY: X-RAY CHEST REASON FOR EXAM: Female, 67 years old. Shortness of breath. Pre-heart catheter, abnormal stress test. TECHNIQUE: PA and lateral views of the chest. COMPARISON: None. FINDINGS: The lungs are clear and expanded. There is no demonstrated pleural abnormality. Normal size heart. Normal mediastinum and tanya. Normal visualized pulmonary arteries. There is minor atherosclerotic calcification of the aortic arch and descending thoracic aorta, as well as more uniform calcification of the visualized abdominal aorta. There is a mildly exaggerated dorsal kyphosis with concomitant exaggerated anteroposterior diameter of the chest. Borderline narrowed transverse diameter of the thoracic cage. Normal visualized ribs, clavicles, and shoulders. 1.8 cm densely rim calcified oblong lesion in the left soft tissues of neck may be a calcified lymph node or calcified lesion in the left lobe of the thyroid, projecting along the left posterior margin of the trachea. The airway is intact. Surgical clips of prior cholecystectomy project in the right upper quadrant abdomen. RAD/Chest PA and Lateral IMPRESSION: 1. No acute cardiopulmonary disease. 2. 1.8 cm densely rim calcified lesion along the left posterior margin of the lower cervical trachea, possibly a lymph node or lesion in the left lobe of the thyroid gland. 3. Atherosclerotic calcification of the thoracoabdominal aorta. Electronically Signed: Trenton Momin MD at 12:27 EST , Service support , CC: Adam aKtz MD; [facility] Theatre Manager: Signed STRESS TEST ECHO W/ Observed: 03/04/2018 Status: F Source: [place] CONTRAST 5:24 PM [facility] REPOSITORY [facility] Cardiovascular Services [address] [place] [address] Stress Test Echo W/Contrast MR#: [id number] Acct: [id number] Name: BECKI MELENDEZ Rep #: [id number] : 1950 67 From: Adam Katz MD Primary Care: Carisa Ortega Status: REG CLI Ordering Dr: Adam Katz MD Sex: F C Reason For Study: SOB, Chest Pain Stress Results Protocol: Cristian Protocol Maximum Predicted HR: 155 bpm Target HR: 132 bpm % Maximum Predicted HR: 99 % DurationHeart Rate Stage (mm:ss) (bpm) BP Comment Baseline 90 158/90No Chest Pain; Diluted Definity 2 ML Given Cristian Protocol Stage I 2:38 153 204/80No Chest Pain; Severe Dyspnea; Audible Wheezes Recovery 109 148/80No Chest Pain; No Dyspnea; No Wheezes Stress Duration: 2:38 mm:ss Maximum Stress HR: 153 bpm METS: 4 Baseline Echocardiogram Findings The estimated ejection fraction is 65 %. Stress Echo Wall motion Data Resting WM Intermediate WM Stress WM Resting Wall Motion Wall Motion Stress No regional wall motion Basal anteroseptal: Mildly abnormalities noted. hypokinetic. Mid-Anterior : Mildly hypokinetic. Mid-Lateral : Mildly hypokinetic. EKG Data The baseline ECG displays normal sinus rhythm. The patient exercised according to the regular Cristian protocol for a total duration of 2:38. The maximum heart rate attained was 155 beats per minute. This was 100% of maximum predicted heart rate. The patient exercised into stage 1 of the Cristian protocol. During stress, there were no ST or T wave changes noted to suggest ischemia. No clinical angina was noted. Interpretation Summary The study was technically difficult. Contrast injection was performed. The estimated ejection fraction is 65 %. Basal anteroseptal: Mildly hypokinetic Mid-Anterior : Mildly hypokinetic Mid-Lateral : Mildly hypokinetic Abnormal, adequate, treadmill echocardiogram. Positive for ischemia by echocardiographic criteria. No anginal symptoms noted. Hypertensive blood pressure response to exercise. Poor exercise capacity for age. Patient appeared to develop mid anterior and lateral hypokinesis at peak exercise. Poor echo images requiring Definity contrast enhancing agent. Rare PVCs noted. Final LVEF of 55%. No complications. Ordering Physician: Adam Katz Referring Physician: Adam Katz Performed By: April Pappas, RDCS, RVT 03/04/181723 Date Adam Katz MD CC: Adam Katz MD; Carisa MANDUJANO Date Dictated: 03/03/18 0958 Date Transcribed: 03/04/181723 Theatre Manager: Signed ECHOCARDIOGRAM COMPLETE Observed: 02/27/2018 Status: F Source: [place] 4:14 PM [facility] REPOSITORY [facility] Cardiovascular Services [address] [place] [address] Echo Complete 02/27/18 1509 MR#: [id number] Acct: [id number] Name: BECKI MELENDEZ Rep #: [id number] : 1950 67 From: Adam Katz MD Attending Dr: Adam Katz MD Status: REG CLI Ordering Dr: Adam Katz MD Date: 02/27/18 Location: CVS Sex: F C Admitted: Reason For Study: CHEST PAIN Procedure This was a 2D Doppler, Color Flow transthoracic echocardiogram. Exam performed in department. Left Ventricle Normal size and thickness. The estimated ejection fraction is 65 %. Stage 1 diastolic dysfunction. No regional wall motion abnormalities noted. Right Ventricle Normal size and thickness. Normal systolic function. Atria Normal left atrium. Normal right atrium. Normal atrial septum. Mitral Valve The mitral valve is structurally normal. No prolapse or stenosis seen. Tricuspid Valve Normal tricuspid valve. Trivial tricuspid valve insufficiency. Right ventricular systolic pressure estimated to be 38 mmHg. Aortic Valve Trisinus/trileaflet aortic valve. Normal aortic valve. Pulmonic Valve Normal pulmonic valve. Great Vessels Normal aortic root. Mild atherosclerosis of the aortic arch. Normal inferior vena cava. Inferior vena cava collapse with sniff. Pericardium/Pleural No pericardial effusion. MMode/2D Measurements AND Calculations LVIDd: 4.0 cm IVSd: 0.94 cm LAV(MOD- bp): 58.3 ml LVIDs: 3.0 cm LVPWd: 1.1 cm LAV(MOD- bp) Indexed: 33.8 ml/m2 RVDd: 3.2 cm FS: 26.0 % LAV(MOD- sp2): 69.5 ml LAV(MOD-sp4): 44.9 ml SV(MOD-sp4): 50.6 ml SV(sp4-el): 54.7 ml LVAd ap4: 28.6 cm2 EDV(MOD-sp4): 88.8 ml EDV(sp4-el): 94.4 ml LVAs ap4: 16.9 cm2 ESV(MOD-sp4): 38.2 ml ESV(sp4-el): 39.7 ml EF(MOD-sp4): 57.0 % EF(sp4-el): 58.0 % LA A4 area: 16.7 cm2 RA A4 area: 11.2 cm2 Time Measurements MV dec time: 0.20 sec Doppler Measurements AND Calculations MV E max sarkis: 101.5 cm/sec Lat Peak E' Sarkis: 9.1 cm/sec Med Peak E' Sarkis: 7.2 cm/sec MV A max sarkis: 136.0 cm/sec E/E' lat: 11.2 E/E' med: 14.1 MV E/A: 0.75 Ao V2 max: 151.0 cm/sec LV V1 max: 132.0 cm/sec PA V2 max: 82.6 cm/sec Ao max P.1 mmHg LV V1 max P.0 mmHg TR max sarkis: 287.4 cm/sec TR max P.0 mmHg Interpretation Summary The estimated ejection fraction is 65 %. Stage 1 diastolic dysfunction. Trivial tricuspid valve insufficiency. Right ventricular systolic pressure estimated to be 38 mmHg. There is no comparison study available. The study was technically difficult. Ordering Physician: Adam Katz Referring Physician: CARISA JESUS Performed By: Debbie Mas RDCS 02/27/18 1613 Date Adam Katz MD CC: Adam Katz MD; Carisa Jesus PROFESSOR OF ENGLISH Date Dictated: 02/27/18 1509 Date Transcribed: 02/27/18 1613 Theatre Manager: Signed CARDIOLOGY VISIT Observed: 02/18/2018 Status: F Source: [place] REPORT 3:14 PM [facility] REPOSITORY [facility] [address] [place] [address]. [address] [place] [address] OFFICE VISIT Date of Service: 02/18/18 MR#: [id number] Acct: [id number] Name: BECKI MELENDEZ Rep #: [id number] : 1950 Provider: Adam Katz MD Age/Sex: 67/F [place] [facility]: Signed HPI HPI Chief Complaint: chest pressure Details: BECKI MELENDEZ, is a 67 F who presents to the office today for evaluation of syncope and chest pressure. Patient is a 67-year-old nondiabetic, current smoker of 3-4 cigarettes/day, averaged of 1-2 packs/day over the last 50 years, with hypertension, hypercholesterolemia, no previous known coronary disease, TIA or CVA. Patient reports that she had PFTs done sometime last year and was told she has COPD. She has not had a stress test in many years. Patient first noted dizziness in the spring 2017. While urinating at home she stood up became lightheaded probably had a syncopal episode and fell forward lacerating her head and causing a concussion as well as injuring her shoulder. She required surgery to correct this, and has had no syncopal episodes since that time. Patient has complained of chest heaviness and achiness on occasion about 1-2 times per week sometimes with exertion sometimes at rest. In addition she has associated diaphoresis but no nausea, vomiting or shortness of breath. In addition she feels very tired all the time and has occasionally daytime somnolence. She did have one episode which woke her up from a sound sleep about 1 month ago which she described as extreme chest pressure, but did not seek medical attention. It is not reoccurred since that time. In our office today her blood pressure is 140/60, pulse is 96 and regular. Her physical exam demonstrates clear lungs bilaterally, regular rate and rhythm, normal S1/S2, no murmurs are detected. She has no edema. Her EKG dated 07/05/17 showed normal sinus rhythm, left atrial enlargement, normal axis, normal intervals, no evidence of acute changes or previous myocardial infarction. Her most recent lipids on 01/2018 showed an HDL of 39 and an LDL of 100. Intake Vital Signs02/18/18 Height 5 ft 5 in 02/18/18 Weight: 148 lb 02/18/18 Body Mass Index (BMI) 24.6 02/18/18 Blood Pressure 140/60 H Intake Visit Reasons: DIZZINESS, CHEST DISCOMFORT (FREE CLINIC) Waterproofing Mixer Required: No Is patient in pain?: No Allergies codeine Adverse Reaction (Intermediate, Verified 02/18/18 14:41) vomiting mushrooms Adverse Reaction (Severe, Uncoded 02/18/18 14:41) Vomiting, head pressure Medications Albuterol Inhaler [Ventolin Hfa (SP)] 1 - 2 puff INHALATION Q4H PRN PRN 04/15/17 [History Confirmed 02/18/18] Atorvastatin Calcium 20 mg PO QHS 04/15/17 [History Confirmed 02/18/18] Budesonide/Formoterol Fumarate [Symbicort 160-4.5 Mcg Inhaler] 12 gm IH BID 04/15/17 [History Confirmed 02/18/18] Cholecalciferol (Vitamin D3) [Vitamin D] 50,000 unit PO ROQUE 04/15/17 [History Confirmed 02/18/18] Fluoxetine HCl [Prozac] 40 mg PO DAILY 04/15/17 [History Confirmed 02/18/18] latanoprost (PF) 0.005 % eye drops 1 drp OPHTHALMIC QPM 02/17/18 [History Confirmed 02/18/18] losartan 25 mg tablet 25 mg PO DAILY 02/17/18 [History Confirmed 02/18/18] aspirin 81 mg tablet,delayed release 81 mg PO DAILY #30 tab 02/18/18 [Rx Confirmed 02/18/18] atenolol 25 mg tablet 25 mg PO DAILY #30 tab 02/18/18 [Rx Confirmed 02/18/18] PFSH Medical History COPD (chronic obstructive pulmonary disease) (Chronic) Hypertension (Chronic) Hyperlipidemia (Chronic) Chest discomfort (Acute) Dizziness (Acute) History of hysterectomy (Chronic) history of surgery on fingers (Chronic) Surgical History History of appendectomy (Chronic) History of cervical spinal surgery (Chronic) History of cholecystectomy (Chronic) History of left knee surgery (Chronic) History of shoulder surgery (Chronic) Family History Father , Age 93 S/P CABG x 1 CAD (coronary artery disease) Mother Pacemaker History of mechanical aortic valve replacement Hypertension Diabetes Hyperlipidemia Social History Smoking Status: Current every day smoker ROS Const Const: Positive for fatigue (Extremely tired since last spring. Fell from dizziness.) and other; negative for weakness, body ache, fever(s), headache(s), chills, frequent falls, night sweats, daytime sleepiness, difficulty sleeping, excessive sweating, weight gain, weight loss, increased appetite, poor appetite or anorexia Eyes Eyes: Negative for blind spots, loss of peripheral vision, transient loss of vision, blurry vision, change in vision, double vision, floaters, tunnel vision or other ENT ENT: Negative for headache(s), dizziness, hearing loss, tinnitus, Nosebleed/epistaxis, balance problems, post nasal drip, lip swelling, tongue swelling, bleeding gums, hoarseness, neck pain, dry mouth or other Cardio Chest Pain: Yes (More recent onset than fatigue) Frequency: other (More than once a week) Character: tightness, other (aching) Onset: other (spontaneous, sometimes middle of night) Location: mid sternal Duration: minutes (about a minute or so) Exacerbation: other (spontaneous) Relieving: other (spontaneous) Palpitations: Yes (a minute or two at a time) feels like its: fast Edema: None Muscle aches with walking: None Resp Respiratory: Positive for SOB with activity (COPD); negative for SOB at rest, SOB orthopnea\SOB lying down, Cough, Coughing up blood/hemoptysis, chest congestion, pain on inspiration, snoring, stridor, wheezing, crackles, paroxysmal nocturnal dyspnea or other GI GI: Negative nausea, vomiting, heartburn, constipation, belching, bloating, cramping, vomiting blood/hematemesis, bright, red blood in stools, black,tarry stools, loose stools, Difficulty Swallowing or other : Negative for hematuria, frequent nighttime urination/ nocturia, erectile dysfunction or abnormal vaginal bleeding Musc Musc: Negative for balance problems, muscle aches/ myalgia, muscle weakness or joint pain Skin Skin: Negative redness, non-healing lesions, rash, unusual bruising, skin ulcer, wounds, jaundice or other Neuro Neuro: Negative for weakness, headache(s), frequent falls, blurry vision, double vision, dizziness, lightheadedness, near syncope, syncope, orthostatic symptoms, confusion, memory loss, restless legs, vertigo, seizures, lack of coordination or other Isaiah Hematologic/Lymphatic: Negative for easy bleeding, easy bruising, enlarged lymph nodes or other Endo Endo: Positive for fatigue (Extremely tired since last spring. Fell from dizziness.); negative for excessive sweating, cold intolerance, heat intolerance, flushing, increased thirst/drinking, increased hunger, hair loss, hair growth or other Psych Psych: Negative for anxiety, depression, thoughts of harming anyone, thoughts of harming yourself, visual hallucinations, panic attacks or audible hallucinations Allergy Allergy/Immunology: Negative for lip swelling, Negative for tongue swelling, Negative for rash, Negative for throat swelling, Negative for hives Cardiology Exam Const Appearance: cooperative, healthy appearing and no acute distress Nutritional Appearance: well nourished Orientation: alert, oriented x3 and oriented to person Head Head: normal to inspection, atraumatic and normocephalic Nose: external nose normal Face and Sinus: face symmetric Mouth: oral mucosae normal Eyes General: appearance normal, both eyes and all related structures Eyelids: eyelids normal Conjunctivae: conjunctivae normal Pupils: PERRL and normal by confrontation EOM: EOM intact bilaterally Neck Neck: normal visual inspection and full ROM Carotids: normal carotid upstroke Chest Chest inspection: normal inspection of the chest Auscultation: Bilateral: Clear to Auscultation Cardio Palpation: normal PMI Rate: regular rate Rhythm: regular rhythm Heart sounds: S1 normal and S2 normal GI GI: normal to inspection, no hepatosplenomegaly and bowel sounds present Neuro General: alert, oriented x3, awake, CN's II-XI intact bilaterally and moves all extremities Skin Skin: no rashes or lesions noted Extremities Pulses: Normal: Right Femoral Pulse, Left Femoral Pulse, Right Dorsalis Pedis Pulse, Left Dorsalis Pedis Pulse, Right Posterior Tibial Pulse, Left Posterior Tibial Pulse, Right Radial Pulse, Left Radial Pulse Lower Extremity Edema: None: Bilateral Psych Psychological: normal affect Assessment AND Plan 1. Chest discomfort R07.89 Plan 1. Chest is: The patient has several month history of intermittent chest discomfort, both with and without exertion, one time waking up from a sound sleep. She has a significant set of risk factors including her age, hypertension, hypercholesterolemia and smoking. She has never had a heart catheterization and she had a stress test many years ago in the 1970s. I recommended the patient undergo a 2D echo with Doppler. If this is grossly abnormal, we will skip her stress test to go directly to catheterization. If her echocardiogram shows normal findings, I recommended she undergo a treadmill echocardiogram to evaluate for possible ischemia. If this is grossly abnormal she will require a diagnostic coronary angiogram. The meantime I recommended that she start baby aspirin 81 mg p.o. daily, as well as atenolol 25 mg p.o. daily for heart rate control. She will continue her losartan for antihypertensive agents. She will return in 2 weeks time for a blood pressure check. Orders Orders: 2. Hyperlipidemia E78.5 Plan 2. Hyperlipidemia: We will await further workup with respect to her LDL cholesterol. If she undergoes a catheterization and is found to have coronary disease would recommend more aggressive LDL reduction to an LDL less than 70. Continue Lipitor for now. 3. Return office in 6 months. This note was generated using a voice recognition system and there may be incorrect words, spelling or punctuation that were not noted when reviewing the office note prior to saving. Orders Orders: Plan Detail Other Orders Orders: Other Medications New: Follow Up +6M (Katz) +2 Weeks (BP CHECK) Coding Level of Care Code Off vis,new,level 4 Diagnoses Chest discomfort R07.89 Hyperlipidemia E78.5 Coding Level of Care Code Off vis,new,level 4 Diagnoses Chest discomfort R07.89 Hyperlipidemia E78.5 02/18/18 1514 <Electronically signed by Adam Katz MD> Date Adam Katz MD Cosigner Signature: Date (if applicable) CC: Carisa MANDUJANO CBC AND DIFFERENTIAL Collected: 02/04/2018 Status: F Source: [place] 8:34 AM CLINIC REFERENCE REPOSITORY TYPE CODE TESTS RESULT OUT OF REFERENCE UNITS RANGE LAB WBC(LOINC) 3.70-11.00 k/uL WBC 7.02 LAB RBC(LOINC) 3.90-5.20 m/uL RBC 4.91 LAB HGB(LOINC) 11.5-15.5 g/dL High Hemoglobin 15.8 LAB HCT(LOINC) 36.0-46.0 % High Hematocrit 48.2 LAB MCV(LOINC) 80.0-100.0 fL MCV 98.2 LAB MCH(LOINC) 26.0-34.0 pG MCH 32.2 LAB MCHC(LOINC 30.5-36.0 g/dL ) MCHC 32.8 LAB RDWCV(LOIN 11.5-15.0 % C) RDW-CV 12.8 LAB PLTCT(LOIN 150-400 k/uL C) Platelet Count 281 LAB MPV(LOINC) 9.0-12.7 fL MPV 10.7 LAB ANEUT(LOIN % C) Neut% 49.9 LAB AANEUT(MILI 1.45-7.50 k/uL NC) Abs Neut 3.48 LAB ALYMP(LOIN % C) Lymph% 39.0 LAB AALYMP(MILI 1.00-4.00 k/uL NC) Abs Lymph 2.74 LAB AMONO(LOIN % C) [place]% 9.1 LAB AAMONO(MILI <0.87 k/uL NC) Abs [place] 0.64 LAB AEOS(LOINC % ) Eosin% 1.3 LAB AAEOS(LOIN <0.46 k/uL C) Abs Eosin 0.09 LAB ABASO(LOIN % C) Baso% 0.7 LAB AABASO(MILI <0.11 k/uL NC) Abs Baso 0.05 LAB AUNRBC(MILI 0 /100 WBC NC) NRBCs 0.0 LAB ABNRBC(MILI <0.01 k/uL NC) Absolute nRBC <0.01 LAB DTYP(LOINC ) DTYPE ADIFF Performed By: #### CBCDIF, CMP, LIPB, FT4, TSH, VITD #### [facility] Routine Lab [address] [place], [place] [address] COMP METABOLIC PANEL Collected: 02/04/2018 Status: F Source: [place] 8:34 AM CLINIC REFERENCE REPOSITORY TYPE CODE TESTS RESULT OUT OF REFERENCE UNITS RANGE LAB TP(LOINC) 6.3-8.0 g/dL Protein, Total 7.6 LAB ALB(LOINC) 3.9-4.9 g/dL Albumin 4.8 LAB CA(LOINC) 8.5-10.2 mg/dL Calcium, Total 9.5 LAB TBIL(LOINC 0.2-1.3 mg/dL ) Bilirubin, Total 0.4 LAB ALKP(LOINC 34-123 U/L ) Alkaline Phosphatase 58 LAB AST(LOINC) 13-35 U/L AST 24 LAB GLU(LOINC) 74-99 mg/dL Glucose High 109 LAB BUN(LOINC) 7-21 mg/dL BUN 7 LAB CRET(LOINC 0.58-0.96 mg/dL ) Creatinine 0.70 LAB NA(LOINC) 136-144 mmol/L Sodium 137 LAB K(LOINC) 3.7-5.1 mmol/L Potassium 4.4 LAB CL(LOINC) 97-105 mmol/L Chloride 97 LAB CO2(LOINC) 22-30 mmol/L CO2 25 LAB AGAP(LOINC 9-18 mmol/L ) Anion Gap 15 LAB ALT(LOINC) 7-38 U/L ALT 15 LAB GFRAA(LOIN C) eGFR- >60 Amer. LAB GFRNAA(MILI . NC) eGFR-All Other Races >60 Performed By: #### CBCDIF, CMP, LIPB, FT4, TSH, VITD #### [facility] Routine Lab [address] [place] [address] LIPID PANEL, BASIC Collected: 02/04/2018 Status: F Source: [place] 8:34 AM CLINIC REFERENCE REPOSITORY TYPE CODE TESTS RESULT OUT OF REFERENCE UNITS RANGE LAB CHOL(LOINC <200 mg/dL ) Cholesterol High 245 LAB TRIGLY(MILI <150 mg/dL NC) Triglyceride 119 LAB HDL(LOINC) >39 mg/dL HDL-Cholesterol 103 LAB LDL(LOINC) <100 mg/dL High LDL-Cholesterol 118 LAB NONHDL(MILI <130 mg/dL NC) Non HDL High Cholesterol 142 LAB FT(LOINC) hrs Fasting Time 12 LAB VLDL(LOINC <30 mg/dL ) VLDL Cholesterol 24 LAB TCHDL(LOIN <5.10 C) TC:HDL Ratio 2.38 LAB LDLHDL(MILI <2.54 NC) LDL:HDL Ratio 1.15 Performed By: #### CBCDIF, CMP, LIPB, FT4, TSH, VITD #### [facility] Routine Lab [address] [place] [address] FREE T4 Collected: 02/04/2018 Status: F Source: [place] 8:34 AM CLINIC REFERENCE REPOSITORY TYPE CODE TESTS RESULT OUT OF RANGE REFERENCE UNITS LAB FT4(LOINC) 0.9-1.7 ng/dL Free T4 1.2 Performed By: #### CBCDIF, CMP, LIPB, FT4, TSH, VITD #### [facility] Routine Lab [address] [place] [id number] TSH Collected: 02/04/2018 Status: F Source: [place] 8:34 AM CLINIC REFERENCE REPOSITORY TYPE CODE TESTS RESULT OUT OF RANGE REFERENCE UNITS LAB TSH(LOINC) 0.400-5.500 uU/mL TSH 1.940 Performed By: #### CBCDIF, CMP, LIPB, FT4, TSH, VITD #### [facility] Routine Lab [address] [place], [place] [address] VITAMIN D 25 HYDROXY Collected: 02/04/2018 Status: F Source: [place] 8:34 AM CLINIC REFERENCE REPOSITORY TYPE CODE TESTS RESULT OUT OF REFERENCE UNITS RANGE LAB VITD(LOINC) 31.0-80.0 ng/mL Vitamin D 25 53.9 Hydroxy Performed By: #### CBCDIF, CMP, LIPB, FT4, TSH, VITD #### [facility] Routine Lab [address] [place], [place] [address] EMERGENCY DEPARTMENT Observed: 02/02/2018 Status: F Source: [place] SUMMARY 8:10 PM [facility] REPOSITORY [facility] Medical Records Department [address] [place] [address] Emergency Department Summary 02/02/182003 MR#: [id number] Acct: [id number] Name: BECKI MELENDEZ Rep #: [id number] : 1950 67 From: Deep Wilburn MD PCP: Carisa Ortega Status: REG ER - ER Visit Summary Date of Service: 02/02/18 Chief Complaint: Foot injury History of Present Illness: The patient is a 67 F a chair fell on her foot while she was outside smoking at a restaurant. She had no other complaints. Physical Examination: She has chronic deformity of her toes, she has tenderness over the fourth digit as well as distal fourth metatarsal region. No swelling or erythema. Emergency Department Course and Treatment: X-ray of the foot shows chronic deformity but no obvious fracture. She was reassured I will discharge in stable condition Impression: Left foot contusion This note was generated with [employer] dictation software. It may contain incorrect words, spelling, and punctuation that were not noted in review of the chart prior to signing ED Disposition - Plan for ED Patient: Disposition: Home or Assisted Living Chief Complaint: Other, Pain/Inj Instructions: ED Contusion Foot Referrals: Fascione,Komal, DPM [STAFF PHYSICIAN] - As Needed What to do if you have Problems For any increased pain, shortness of breath, bleeding, nausea or vomiting, chest pain, or any unexpected problems, contact your Primary Care Provider. Call [facility] ([phone]) or report to the closest Emergency Room. Call 911 if necessary. 02/02/182009 <Electronically signed by Deep Wilburn MD> Date Deep Wilburn MD Cosigner Signature (If Indicated): Date CC: Carisa MANDUJANO FOOT MIN 3 VIEWS Observed: 02/02/2018 Status: F Source: [place] 7:53 PM [facility] REPOSITORY [facility] Imaging Services [address] [place] [address] Foot min 3 Views MR#: [id number] Acct: [id number] Name: BECKI MELENDEZ Rep #: [id number] : 1950 F 67 From: Arun Rowland MD PCP: Carisa Ortega Status: REG ER Study: Foot min 3 Views Date of Exam: 02/02/18 Exam# [id number] Ordering Dr: Deep Wilburn MD STUDY: X-RAY - LEFT FOOT CLINICAL: Female, 67 years old. Trauma TECHNIQUE: 3 view(s) of the foot. COMPARISON: None. FINDINGS: There is no evidence of acute fracture or dislocation. There is an osteochondroma noted in the fifth metatarsal. There are erosive changes noted in the fifth toe. There are moderate degenerative changes in the midfoot. RAD/Foot min 3 Views IMPRESSION: No acute fracture or dislocation. Moderate degenerative changes. Osteochondroma of the fifth metatarsal. Erosive changes in the left fifth toe. Electronically Signed: Arun Rowland, at 20:16 EST Tel , Service support , CC: Carisa MANDUJANO; Deep Wilburn MD Theatre Manager: Signed SCREENING MAMM (CAD), Observed: 12/10/2017 Status: F Source: [place] 7:19 AM [facility] REPOSITORY [facility] Imaging Services [address] [place] [address] SCREENING MAMM (CAD), BILAT MR#: [id number] Acct: [id number] Name: BECKI MELENDEZ Rep #: [id number] : 1950 F 67 From: Eyal Roa MD PCP: Carisa Ortega Status: REG CLI Study: SCREENING MAMM (CAD), BILAT Date of Exam: 12/10/17 Exam# [id number] Ordering Dr: Olvin Blanton MAMMOGRAPHY - BILATERAL SCREENING REASON FOR EXAM: Female, 67 years old. Routine annual screening examination. PERTINENT HISTORY: Aunt with breast cancer. Prior right excisional breast biopsy. TECHNIQUE: Digital bilateral breast alyssia (3D mammographic acquisition) in the CC and MLO projections. 2-D mediolateral oblique (MLO) and craniocaudad (CC) views of both breasts were obtained. CAD: Full Field Digital Mammography with Computer Added Detection was performed. COMPARISON: Comparison is made with prior study dated August 04, 2015 and May 27, 2014. FINDINGS: Breast Composition: The breasts are almost entirely fatty. A tissue clip marker is seen in the upper lateral deep portion of the right breast. There are no dominant masses or suspicious calcifications. No other significant abnormalities are identified. There has been no significant change since the prior study. BI/SCREENING MAMM (CAD), BILAT IMPRESSION: Stable bilateral screening mammogram. Yearly follow-up mammogram recommended. (A) ASSESSMENT CATEGORY: BIRADS Category 2: Benign. A letter regarding these results will be sent to the patient by the facility within 30 days. Approximately 10% of breast cancers are not detected by mammography. A normal mammogram should not delay biopsy of a clinically suspicious abnormality. [id number] Electronically Signed: Eyal Roa MD at 8:27 EDT Tel [phone], Service support , CC: Carisa MANDUJANO; [facility] Theatre Manager: Signed CBC AND DIFFERENTIAL Collected: 11/08/2017 Status: F Source: [place] 8:01 AM CLINIC REFERENCE REPOSITORY TYPE CODE TESTS RESULT OUT OF REFERENCE UNITS RANGE LAB WBC(LOINC) 3.70-11.00 k/uL WBC 5.82 LAB RBC(LOINC) 3.90-5.20 m/uL RBC 4.91 LAB HGB(LOINC) 11.5-15.5 g/dL High Hemoglobin 15.6 LAB HCT(LOINC) 36.0-46.0 % High Hematocrit 47.9 LAB MCV(LOINC) 80.0-100.0 fL MCV 97.6 LAB MCH(LOINC) 26.0-34.0 pG MCH 31.8 LAB MCHC(LOINC 30.5-36.0 g/dL ) MCHC 32.6 LAB RDWCV(LOIN 11.5-15.0 % C) RDW-CV 12.7 LAB PLTCT(LOIN 150-400 k/uL C) Platelet Count 258 LAB MPV(LOINC) 9.0-12.7 fL MPV 10.6 LAB ANEUT(LOIN % C) Neut% 38.3 LAB AANEUT(MILI 1.45-7.50 k/uL NC) Abs Neut 2.22 LAB ALYMP(LOIN % C) Lymph% 49.5 LAB AALYMP(MILI 1.00-4.00 k/uL NC) Abs Lymph 2.88 LAB AMONO(LOIN % C) [place]% 9.6 LAB AAMONO(MILI <0.87 k/uL NC) Abs [place] 0.56 LAB AEOS(LOINC % ) Eosin% 1.4 LAB AAEOS(LOIN <0.46 k/uL C) Abs Eosin 0.08 LAB ABASO(LOIN % C) Baso% 1.2 LAB AABASO(MILI <0.11 k/uL NC) Abs Baso 0.07 LAB AUNRBC(MILI 0 /100 WBC NC) NRBCs 0.0 LAB ABNRBC(MILI <0.01 k/uL NC) Absolute nRBC <0.01 LAB DTYP(LOINC ) DTYPE ADIFF VITAMIN D 25 HYDROXY Collected: 11/08/2017 Status: F Source: [place] 8:01 AM CLINIC REFERENCE REPOSITORY TYPE CODE TESTS RESULT OUT OF REFERENCE UNITS RANGE LAB VITD(LOINC) 31.0-80.0 ng/mL Vitamin D 25 70.7 Hydroxy COMP METABOLIC PANEL Collected: 11/08/2017 Status: F Source: [place] 8:01 AM [facility] REFERENCE REPOSITORY TYPE CODE TESTS RESULT OUT OF REFERENCE UNITS RANGE LAB TP(LOINC) 6.3-8.0 g/dL Protein, Total 7.0 LAB ALB(LOINC) 3.9-4.9 g/dL Albumin 4.4 LAB CA(LOINC) 8.5-10.2 mg/dL Calcium, Total 9.4 LAB TBIL(LOINC 0.2-1.3 mg/dL ) Bilirubin, Total 0.4 LAB ALKP(LOINC 32-117 U/L ) Alkaline Phosphatase 56 LAB AST(LOINC) 13-35 U/L AST 23 LAB GLU(LOINC) 74-99 mg/dL Glucose High 101 LAB BUN(LOINC) 7-21 mg/dL BUN 12 LAB CRET(LOINC 0.58-0.96 mg/dL ) Creatinine 0.80 LAB NA(LOINC) 136-144 mmol/L Sodium 139 LAB K(LOINC) 3.7-5.1 mmol/L Potassium 4.5 LAB CL(LOINC) 97-105 mmol/L Chloride 99 LAB CO2(LOINC) 22-30 mmol/L CO2 25 LAB AGAP(LOINC 9-18 mmol/L ) Anion Gap 15 LAB ALT(LOINC) 7-38 U/L ALT 12 LAB GFRAA(LOIN C) eGFR- >60 Amer. LAB GFRNAA(MILI . NC) eGFR-All Other Races >60 LIPID PANEL, BASIC Collected: 11/08/2017 Status: F Source: [place] 8:01 AM [facility] REFERENCE REPOSITORY TYPE CODE TESTS RESULT OUT OF REFERENCE UNITS RANGE LAB CHOL(LOINC <200 mg/dL ) Cholesterol High 267 LAB TRIGLY(MILI <150 mg/dL NC) Triglyceride 85 LAB HDL(LOINC) >39 mg/dL HDL-Cholesterol 88 LAB LDL(LOINC) <100 mg/dL High LDL-Cholesterol 162 LAB NONHDL(MILI <130 mg/dL NC) Non HDL High Cholesterol 179 LAB FT(LOINC) hrs Fasting Time 12 LAB VLDL(LOINC <30 mg/dL ) VLDL Cholesterol 17 LAB TCHDL(LOIN <5.10 C) TC:HDL Ratio 3.03 LAB LDLHDL(MILI <2.54 NC) LDL:HDL Ratio 1.84 TSH Collected: 11/08/2017 Status: F Source: [place] 8:01 AM [facility] REFERENCE REPOSITORY TYPE CODE TESTS RESULT OUT OF RANGE REFERENCE UNITS LAB TSH(LOINC) 0.400-5.500 uU/mL TSH 1.710 FREE T4 Collected: 11/08/2017 Status: F Source: [place] 8:01 AM [facility] REFERENCE REPOSITORY TYPE CODE TESTS RESULT OUT OF RANGE REFERENCE UNITS LAB FT4(LOINC) 0.9-1.7 ng/dL Free T4 1.1 HEMOGLOBIN A1C Collected: 11/08/2017 Status: F Source: [place] 8:01 AM [facility] REFERENCE REPOSITORY TYPE CODE TESTS RESULT OUT OF REFERENCE UNITS RANGE LAB HGBA1C(MILI 4.3-5.6 % NC) Hemoglobin A1c 5.1 LAB HBA0(LOINC mg/dL ) Est. Average Glucose 100 CBC AND DIFFERENTIAL Collected: 07/26/2017 Status: F Source: [place] 8:16 AM [facility] REFERENCE REPOSITORY TYPE CODE TESTS RESULT OUT OF REFERENCE UNITS RANGE LAB WBC(LOINC) 3.70-11.00 k/uL WBC 6.77 LAB RBC(LOINC) 3.90-5.20 m/uL RBC 4.87 LAB HGB(LOINC) 11.5-15.5 g/dL Hemoglobin 15.4 LAB HCT(LOINC) 36.0-46.0 % High Hematocrit 47.9 LAB MCV(LOINC) 80.0-100.0 fL MCV 98.4 LAB MCH(LOINC) 26.0-34.0 pG MCH 31.6 LAB MCHC(LOINC 30.5-36.0 g/dL ) MCHC 32.2 LAB RDWCV(LOIN 11.5-15.0 % C) RDW-CV 13.2 LAB PLTCT(LOIN 150-400 k/uL C) Platelet Count 282 LAB MPV(LOINC) 9.0-12.7 fL MPV 10.4 LAB ANEUT(LOIN % C) Neut% 47.8 LAB AANEUT(MILI 1.45-7.50 k/uL NC) Abs Neut 3.22 LAB ALYMP(LOIN % C) Lymph% 38.6 LAB AALYMP(MILI 1.00-4.00 k/uL NC) Abs Lymph 2.61 LAB AMONO(LOIN % C) [place]% 7.8 LAB AAMONO(MILI <0.87 k/uL NC) Abs [place] 0.53 LAB AEOS(LOINC % ) Eosin% 4.3 LAB AAEOS(LOIN <0.46 k/uL C) Abs Eosin 0.29 LAB ABASO(LOIN % C) Baso% 1.5 LAB AABASO(MILI <0.11 k/uL NC) Abs Baso 0.10 LAB AUNRBC(MILI 0 /100 WBC NC) NRBCs 0.0 LAB ABNRBC(MILI <0.01 k/uL NC) Absolute nRBC <0.01 LAB DTYP(LOINC ) DTYPE ADIFF FREE T4 Collected: 07/26/2017 Status: F Source: [place] 8:16 AM CLINIC REFERENCE REPOSITORY TYPE CODE TESTS RESULT OUT OF RANGE REFERENCE UNITS LAB FT4(LOINC) 0.9-1.7 ng/dL Free T4 1.1 COMP METABOLIC PANEL Collected: 07/26/2017 Status: F Source: [place] 8:16 AM [facility] REFERENCE REPOSITORY TYPE CODE TESTS RESULT OUT OF REFERENCE UNITS RANGE LAB TP(LOINC) 6.3-8.0 g/dL Protein, Total 6.9 LAB ALB(LOINC) 3.9-4.9 g/dL Albumin 4.4 LAB CA(LOINC) 8.5-10.2 mg/dL Calcium, Total 9.4 LAB TBIL(LOINC 0.2-1.3 mg/dL ) Bilirubin, Total 0.3 LAB ALKP(LOINC 32-117 U/L ) Alkaline Phosphatase 58 LAB AST(LOINC) 13-35 U/L AST 20 LAB GLU(LOINC) 74-99 mg/dL Glucose 97 LAB BUN(LOINC) 7-21 mg/dL BUN 11 LAB CRET(LOINC 0.58-0.96 mg/dL ) Creatinine 0.87 LAB NA(LOINC) 136-144 mmol/L Low Sodium 135 LAB K(LOINC) 3.7-5.1 mmol/L Potassium 4.7 LAB CL(LOINC) 97-105 mmol/L Low Chloride 96 LAB CO2(LOINC) 22-30 mmol/L CO2 24 LAB AGAP(LOINC 9-18 mmol/L ) Anion Gap 15 LAB ALT(LOINC) 7-38 U/L ALT 15 LAB GFRAA(LOIN C) eGFR- >60 Amer. LAB GFRNAA(MILI . NC) eGFR-All Other Races >60 LIPID PANEL, BASIC Collected: 07/26/2017 Status: F Source: [place] 8:16 AM [facility] REFERENCE REPOSITORY TYPE CODE TESTS RESULT OUT OF REFERENCE UNITS RANGE LAB CHOL(LOINC <200 mg/dL ) Cholesterol High 266 LAB TRIGLY(MILI <150 mg/dL NC) Triglyceride 88 LAB HDL(LOINC) >39 mg/dL HDL-Cholesterol 110 LAB LDL(LOINC) <100 mg/dL High LDL-Cholesterol 138 LAB NONHDL(MILI <130 mg/dL NC) Non HDL High Cholesterol 156 LAB FT(LOINC) hrs Fasting Time 12 LAB VLDL(LOINC <30 mg/dL ) VLDL Cholesterol 18 LAB TCHDL(LOIN <5.10 C) TC:HDL Ratio 2.42 LAB LDLHDL(MILI <2.54 NC) LDL:HDL Ratio 1.25 TSH Collected: 07/26/2017 Status: F Source: [place] 8:16 AM [facility]INIC REFERENCE REPOSITORY TYPE CODE TESTS RESULT OUT OF RANGE REFERENCE UNITS LAB TSH(LOINC) 0.400-5.500 uU/mL TSH 1.930 HEMOGLOBIN A1C Collected: 07/26/2017 Status: F Source: [place] 8:16 AM [facility]INIC REFERENCE REPOSITORY TYPE CODE TESTS RESULT OUT OF REFERENCE UNITS RANGE LAB HGBA1C(MILI 4.3-5.6 % NC) Hemoglobin A1c 5.2 LAB HBA0(LOINC mg/dL ) Est. Average Glucose 103 VITAMIN D 25 HYDROXY Collected: 07/26/2017 Status: F Source: [place] 8:16 AM CLINIC REFERENCE REPOSITORY TYPE CODE TESTS RESULT OUT OF REFERENCE UNITS RANGE LAB VITD(LOINC) 31.0-80.0 ng/mL Vitamin D 25 63.2 Hydroxy 12 LEAD ELECTROCARDIOGRAM Observed: 07/08/2017 Status: F Source: [place] 2:46 PM [facility] REPOSITORY [facility] Cardiovascular Services [address] [place] [address] 12 Lead EKG 07/05/17 1116 MR#: [id number] Acct: [id number] Name: BECKI MELENDEZ Rep #: [id number] : 1950 67 From: Deep Ascencio MD Attending Dr: Bryant Celestin Status: REG CLI Ordering Dr: Bryant Do PA-C Date: 07/05/17 Location: LAB Sex: F C Admitted: Test Reason : PREOP Blood Pressure : / mmHG Vent. Rate : 085 BPM Atrial Rate : 085 BPM P-R Int : 156 ms QRS Dur : 080 ms QT Int : 340 ms P-R-T Axes : 063 027 057 degrees QTc Int : 404 ms Normal sinus rhythm Nonspecific ST segment abnormality Abnormal ECG Confirmed by SONU HUGHES, DEEP ([id number]), design editor DEON GUNDERSON ([id number]) on 07/08/2017 2:45:47 PM Referred By: Bryant Do Confirmed By:DEEP ASCENCIO MD 07/08/17 1445 Date Deep Ascencio MD CC: Carisa MANDUJANO; Bryant HODGES Signed CHEST PA AND LATERAL Observed: 07/05/2017 Status: F Source: [place] 10:46 AM [facility] REPOSITORY [facility] Imaging Services [address] [place] [address] Chest PA and Lateral MR#: [id number] Acct: [id number] Name: BECKI MELENDEZ Rep #: [id number] : 1950 F 67 From: Eyal Roa MD PCP: Carisa Ortega Status: REG CLI Study: Chest PA and Lateral Date of Exam: 07/05/17 Exam# [id number] Ordering Dr: Bryant Do-C STUDY: X-RAY CHEST REASON FOR EXAM: Female, 67 years old. Preoperative evaluation. TECHNIQUE: PA and lateral views of the chest. COMPARISON: Comparison is made with prior study dated March 29, 2017. FINDINGS: Stable mild increased linear markings at the lung bases suggestive scarring. Scattered calcified granulomas. There is no demonstrated pleural abnormality. Normal size heart. Normal mediastinum and tanya. Normal visualized pulmonary arteries. There is atherosclerotic calcification of the aortic arch with tortuosity. There is demineralization of the osseous structures. Increased kyphosis. Normal visualized ribs, clavicles, and shoulders. There is no demonstrated abnormality of the visualized soft tissue structures of the upper abdomen. RAD/Chest PA and Lateral IMPRESSION: Stable examination. No acute abnormality is seen. Electronically Signed: Eyal Roa MD at 13:57 EDT Tel [phone], Service support , CC: Carisa MANDUJANO; Bryant HODGES Theatre Manager: Signed CBC-COMPLETE BLOOD CNT Collected: 07/05/2017 Status: F Source: [place] NO DIFF 10:37 AM [facility] REPOSITORY TYPE CODE TESTS RESULT OUT OF RANGE REFERENCE UNITS LAB L100.1000 4.4-11.0 K/mm3 Normal WBC 5.8 LAB L100.1200 4.2-5.4 M/mm3 Normal RBC 4.87 LAB L100.1300 12.0-15.0 g/dl High HGB 15.8 LAB L100.1400 37-47 % Normal HCT 45.8 LAB L100.1500 81-99 fL Normal MCV 94.0 LAB L100.1600 27.0-32.0 pg High MCH 32.4 LAB L100.1700 32-36 g/gl Normal MCHC 34.5 LAB L100.1810 11.6-14.6 % Normal RDW CV 13.4 LAB L100.1820 35.1-43.9 fl High RDW SD 44.4 LAB L100.1900 150-450 K/mm3 Normal PLT 259 LAB L100.2000 6.2-12.0 fl Normal MPV 10.1 Performed By: #### L100.0500 #### [facility] [address] [place], [address] BASIC METABOLIC Collected: 07/05/2017 Status: F Source: [place] PROFILE (BMP) 10:37 AM [facility] REPOSITORY TYPE CODE TESTS RESULT OUT OF RANGE REFERENCE UNITS LAB L501.0100 74-106 mg/dL Normal GLU 104 Result Comment: Fasting Glucose result from 100 to 125 mg/dL suggests IMPAIRED HOMEOSTASIS per A.D.A. criteria. Please note revised GLUCOSE reference range effective 2017. LAB L501.1000 7-18 mg/dL Normal BUN 11 LAB L501.1100 0.55-1.02 mg/dL Normal CREAT,SERUM 0.93 Result Comment: The validity of the calculated GFR AND GFRAA in patients over 70 years has not been determined. Clinical correlation is essential. LAB L501.1110 >60 mL/min Normal EST GFR 64 Result Comment: Non- GFR Calc LAB L501.1115 >60 mL/min Normal EST GFR - AA 78 Result Comment: GFR Calc LAB L501.1300 10-20 RATIO Normal BUN/CRE 11.9 LAB L501.2200 8.5-10.1 mg/dL CA Normal 8.9 LAB L501.5300 136-145 mmol/L NA Normal 136 LAB L501.5600 3.5-5.1 mmol/L K Normal 4.5 LAB L501.5900 98-107 mmol/L CL Normal 104 LAB L501.6100 21.0-32.0 mmol/L Normal CO2 24.0 LAB L501.6200 5-15 Normal GAP 8 Performed By: #### L500.2500 #### [facility] [place], [address] CBC AND DIFFERENTIAL Collected: 04/19/2017 Status: F Source: [place] 8:03 AM CLINIC REFERENCE REPOSITORY TYPE CODE TESTS RESULT OUT OF REFERENCE UNITS RANGE LAB WBC(LOINC) 3.70-11.00 k/uL WBC 5.31 LAB RBC(LOINC) 3.90-5.20 m/uL RBC High 5.36 LAB HGB(LOINC) 11.5-15.5 g/dL High Hemoglobin 16.9 LAB HCT(LOINC) 36.0-46.0 % High Hematocrit 52.8 LAB MCV(LOINC) 80.0-100.0 fL MCV 98.5 LAB MCH(LOINC) 26.0-34.0 pG MCH 31.5 LAB MCHC(LOINC 30.5-36.0 g/dL ) MCHC 32.0 LAB RDWCV(LOIN 11.5-15.0 % C) RDW-CV 12.7 LAB PLTCT(LOIN 150-400 k/uL C) Platelet Count 273 LAB MPV(LOINC) 9.0-12.7 fL MPV 10.2 LAB ANEUT(LOIN % C) Neut% 43.9 LAB AANEUT(MILI 1.45-7.50 k/uL NC) Abs Neut 2.32 LAB ALYMP(LOIN % C) Lymph% 44.3 LAB AALYMP(MILI 1.00-4.00 k/uL NC) Abs Lymph 2.35 LAB AMONO(LOIN % C) [place]% 9.2 LAB AAMONO(MILI <0.87 k/uL NC) Abs [place] 0.49 LAB AEOS(LOINC % ) Eosin% 1.5 LAB AAEOS(LOIN <0.46 k/uL C) Abs Eosin 0.08 LAB ABASO(LOIN % C) Baso% 1.1 LAB AABASO(MILI <0.11 k/uL NC) Abs Baso 0.06 LAB AUNRBC(MILI 0 /100 WBC NC) NRBCs 0.0 LAB ABNRBC(MILI <0.01 k/uL NC) Absolute nRBC <0.01 LAB DTYP(LOINC ) DTYPE ADIFF COMP METABOLIC PANEL Collected: 04/19/2017 Status: F Source: [place] 8:03 AM CLINIC REFERENCE REPOSITORY TYPE CODE TESTS RESULT OUT OF REFERENCE UNITS RANGE LAB TP(LOINC) 6.3-8.0 g/dL Protein, Total 7.3 LAB ALB(LOINC) 3.9-4.9 g/dL Albumin 4.6 LAB CA(LOINC) 8.5-10.2 mg/dL Calcium, Total 9.3 LAB TBIL(LOINC 0.2-1.3 mg/dL ) Bilirubin, Total 0.4 LAB ALKP(LOINC 32-117 U/L ) Alkaline Phosphatase 60 LAB AST(LOINC) 13-35 U/L AST 18 LAB GLU(LOINC) 74-99 mg/dL Glucose High 112 LAB BUN(LOINC) 7-21 mg/dL BUN 11 LAB CRET(LOINC 0.58-0.96 mg/dL ) Creatinine 0.89 LAB NA(LOINC) 136-144 mmol/L Low Sodium 132 LAB K(LOINC) 3.7-5.1 mmol/L Potassium 5.0 LAB CL(LOINC) 97-105 mmol/L Low Chloride 96 LAB CO2(LOINC) 22-30 mmol/L CO2 27 LAB AGAP(LOINC 9-18 mmol/L ) Anion Gap 9 LAB ALT(LOINC) 7-38 U/L ALT 14 LAB GFRAA(LOIN C) eGFR- >60 Amer. LAB GFRNAA(MILI . NC) eGFR-All Other Races >60 LIPID PANEL, BASIC Collected: 04/19/2017 Status: F Source: [place] 8:03 AM CLINIC REFERENCE REPOSITORY TYPE CODE TESTS RESULT OUT OF REFERENCE UNITS RANGE LAB CHOL(LOINC <200 mg/dL ) Cholesterol High 254 LAB TRIGLY(MILI <150 mg/dL NC) Triglyceride 83 LAB HDL(LOINC) >39 mg/dL HDL-Cholesterol 102 LAB LDL(LOINC) <100 mg/dL High LDL-Cholesterol 135 LAB NONHDL(MILI <130 mg/dL NC) Non HDL High Cholesterol 152 LAB FT(LOINC) hrs Fasting Time 12 LAB VLDL(LOINC <30 mg/dL ) VLDL Cholesterol 17 LAB TCHDL(LOIN <5.10 C) TC:HDL Ratio 2.49 LAB LDLHDL(MILI <2.54 NC) LDL:HDL Ratio 1.32 FREE T4 Collected: 04/19/2017 Status: F Source: [place] 8:03 AM CLINIC REFERENCE REPOSITORY TYPE CODE TESTS RESULT OUT OF RANGE REFERENCE UNITS LAB FT4(LOINC) 0.9-1.7 ng/dL Free T4 1.2 TSH Collected: 04/19/2017 Status: F Source: [place] 8:03 AM [facility] REFERENCE REPOSITORY TYPE CODE TESTS RESULT OUT OF RANGE REFERENCE UNITS LAB TSH(LOINC) 0.400-5.500 uU/mL TSH 1.310 HEMOGLOBIN A1C Collected: 04/19/2017 Status: F Source: [place] 8:03 AM [facility] REFERENCE REPOSITORY TYPE CODE TESTS RESULT OUT OF REFERENCE UNITS RANGE LAB HGBA1C(MILI 4.3-5.6 % NC) Hemoglobin A1c 5.5 LAB HBA0(LOINC mg/dL ) Est. Average Glucose 111 VITAMIN D 25 HYDROXY Collected: 04/19/2017 Status: F Source: [place] 8:03 AM [facility]IN[facility] REFERENCE REPOSITORY TYPE CODE TESTS RESULT OUT OF REFERENCE UNITS RANGE LAB VITD(LOINC) 31.0-80.0 ng/mL Vitamin D 25 72.4 Hydroxy 12 LEAD ELECTROCARDIOGRAM Observed: 04/18/2017 Status: F Source: [place] 11:23 AM [facility] REPOSITORY [facility] Cardiovascular Services [address] [place] [address] 12 Lead EKG 04/15/17 1507 MR#: [id number] Acct: [id number] Name: BECKI MELENDEZ Rep #: [id number] : 1950 67 From: Deep Ascencio MD Attending Dr: Status: DEP ER Ordering Dr: Lisandro Lama MD Date: 04/15/17 Location: ED Sex: F C Admitted: Test Reason : FALL Blood Pressure : / mmHG Vent. Rate : 106 BPM Atrial Rate : 106 BPM P-R Int : 146 ms QRS Dur : 066 ms QT Int : 334 ms P-R-T Axes : 071 045 070 degrees QTc Int : 443 ms Sinus tachycardia with Premature atrial complexes Otherwise normal ECG Confirmed by SONU HUGHES, DEEP ([id number]), design editor DEON GUNDERSON ([id number]) on 04/18/2017 11:22:59 AM Referred By: DAINA Confirmed By:DEEP ASCENCIO MD 04/18/17 1123 Date Deep Ascencio MD CC: Carisa MANDUJANO Signed EMERGENCY DEPARTMENT Observed: 04/15/2017 Status: F Source: [place] SUMMARY 5:21 PM [facility] REPOSITORY [facility] Medical Records Department [address] [place] [address] Emergency Department Summary 04/15/17 1653 MR#: [id number] Acct: [id number] Name: BECKI MELENDEZ Rep #: [id number] : 1950 67 From: Lisandro Lama MD PCP: Carisa Ortega Status: DEP ER - ER Visit Summary Date of Service: 04/15/17 Chief Complaint: Fall History of Present Illness: The patient is a [address] Leary. She reports that 2 days ago she stood up from the commode was very lightheaded and fell forward in 2 the shower. She hit her head. She states that she saw stars and was days. She did not have a loss of consciousness. She is not on blood thinners. However, she reports she has a headache it is 8 out of 10 severity. She also has left shoulder pain is 8 out of 10 severity. She denies any neck, back, wrist, or hip pain. States that she has been nauseated since that time. She has not vomited. Physical Examination: Vitals: 98.5, 134/87, 134, 19, 93% on room air which is not hypoxic. Head: Superficial laceration over her left eyebrow with minimal surrounding contusion. Mild tenderness palpation over the right parietal area of her scalp. Neck: No vertebral tenderness. Full ROM without difficulty. Cleared by NEXUS criteria. Back: No vertebral tenderness. General: A AND O x 3. NAD. Cardiovascular exam: Regular rate and rhythm, no murmur, rub or gallop. Respiratory exam: Chest nontender. No crepitus. Clear to auscultation bilaterally. No wheezes or stridor. Abdominal exam: Soft, nontender, nondistended, normal bowel sounds. No pain in RUQ or LUQ specifically. No peritoneal signs. Extremity: Large contusion over her left deltoid with mild tenderness palpation. Decreased range of motion secondary to pain. Test Results: Due to the patient's tachycardia and EKG was obtained. Shows sinus tachycardia at 106 with PACs and no acute changes. CBC is marked for hemoglobin of 16. Chem-7 is more for sodium 134 and glucose of 112. CT brain shows no acute disease. Left shoulder x-ray shows calcific tendinitis and no acute disease. Emergency Department Course and Treatment: Patient refused pain and nausea medications. She is resting comfortably. Treatment Plan: She will be discharged with H[place] and Zofran. Instructed to follow-up her primary care physician 1 week for another exam. Return to the emergency department for any worsening symptoms. Disposition: To home in improved and stable condition. Impression: 1. Fall. 2. Concussion. 3. Contusion left shoulder. 4. Sinus tachycardia. This note was generated with [employer] dictation software. It may contain incorrect words, spelling, and punctuation that were not noted in review of the chart prior to signing ED Disposition - Plan for ED Patient: Chief Complaint: Fall Instructions: ED Shoulder Pain UKO, ED Concussion Prescriptions: Hydrocodone Bitart/Apap 5-325 [Hancock 5/325] 1 - 2 tablet PO Q4H PRN PRN #20 tablet PRN Reason: Pain Ondansetron [Zofran Odt] 4 mg PO Q8H PRN PRN #10 tablet PRN Reason: Nausea Docusate Sodium [Colace] 100 mg PO DAILY #20 capsule Referrals: Carisa Jesus, [employer] [Primary Care Provider] - 1 Week What to do if you have Problems For any increased pain, shortness of breath, bleeding, nausea or vomiting, chest pain, or any unexpected problems, contact your Primary Care Provider. Call [facility] ([phone]) or report to the closest Emergency Room. Call 911 if necessary. 04/15/17 3705 <Electronically signed by Lisandro Lama MD> Date Lisandro Lama MD Cosigner Signature (If Indicated): Date CC: Carisa Contrerasjessee MANDUJANO CBC W/DIFF, AUTOMATED Collected: 04/15/2017 Status: F Source: [place] 3:20 PM [facility] REPOSITORY TYPE CODE TESTS RESULT OUT OF RANGE REFERENCE UNITS LAB L100.1000 4.4-11.0 K/mm3 Normal WBC 6.8 LAB L100.1200 4.2-5.4 M/mm3 Normal RBC 5.06 LAB L100.1300 12.0-15.0 g/dl High HGB 16.0 LAB L100.1400 37-47 % Normal HCT 46.6 LAB L100.1500 81-99 fL Normal MCV 92.1 LAB L100.1600 27.0-32.0 pg Normal MCH 31.6 LAB L100.1700 32-36 g/gl Normal MCHC 34.3 LAB L100.1810 11.6-14.6 % Normal RDW CV 12.9 LAB L100.1820 35.1-43.9 fl Normal RDW SD 43.0 LAB L100.1900 150-450 K/mm3 Normal PLT 248 LAB L100.2000 6.2-12.0 fl Normal MPV 9.8 LAB L100.2100 47-70 % Normal NEUT% 62.4 LAB L100.2200 19-41 % Normal LY% 27.0 LAB L100.2300 0-10 % Normal MONO% 9.6 LAB L100.2400 0-5 % Normal EO% 0.6 LAB L100.2500 0-1 % Normal BASO% 0.3 LAB L100.2550 0.0-0.9 % Normal IM GRAN % 0.100 Result Comment: IG% - Immature Granulocytes (promyelocytes, myelocytes and metamyelocytes) > 1% indicates that a LEFT SHIFT is Present. LAB L100.2620 2.0-7.7 X10 3/uL Normal Absolute Neut 4.2 LAB L100.2720 0.83-4.51 X10 3/ul Normal Absolute Lymph 1.83 Performed By: #### L100.0100 #### [facility] [address] [place], [address] BASIC METABOLIC Collected: 04/15/2017 Status: F Source: [place] PROFILE (BMP) 3:20 PM [facility] REPOSITORY TYPE CODE TESTS RESULT OUT OF RANGE REFERENCE UNITS LAB L501.0100 70-110 mg/dL High GLU 112 Result Comment: Fasting Glucose result from 110 to <126 mg/dL suggests IMPAIRED HOMEOSTASIS per A.D.A. criteria. LAB L501.1000 7-18 mg/dL Normal BUN 11 LAB L501.1100 0.55-1.02 mg/dL Normal CREAT,SERUM 0.88 Result Comment: The validity of the calculated GFR AND GFRAA in patients over 70 years has not been determined. Clinical correlation is essential. LAB L501.1110 >60 mL/min Normal EST GFR 69 Result Comment: Non- GFR Calc LAB L501.1115 >60 mL/min Normal EST GFR - AA 83 Result Comment: GFR Calc LAB L501.1255 ml/min Normal Estimated CRCL 59.67 LAB L501.1300 10-20 RATIO Normal BUN/CRE 12.6 LAB L501.2200 8.5-10 mg/dL Normal .1 CA 9.0 LAB L501.5300 136-14 mmol/L Low 5 NA 134 LAB L501.5600 3.5-5. mmol/L Normal 1 K 4.2 LAB L501.5900 98-107 mmol/L Normal CL 101 LAB L501.6100 21.0-3 mmol/L Normal 2.0 CO2 24.0 LAB L501.6200 5-15 Normal GAP 9 Performed By: #### L500.2500 #### [facility] [address] [place], [address] HUMERUS MIN 2 VIEWS Observed: 04/15/2017 Status: F Source: [place] 2:59 PM [facility] REPOSITORY [facility] Imaging Services [address] [place] [address] Humerus min 2 Views MR#: [id number] Acct: [id number] Name: BECKI MELENDEZ Rep #: [id number] : 1950 F 67 From: Eyal Roa MD PCP: Carisa Ortega Status: REG ER Study: Humerus min 2 Views Date of Exam: 04/15/17 Exam# [id number] Ordering Dr: Lisandro Lama MD STUDY: X-RAY - LEFT HUMERUS REASON FOR EXAM: Female, 67 years old. Left upper extremity pain and bruising following a recent fall. TECHNIQUE: 2 view(s) of the humerus. COMPARISON: None. FINDINGS: Normal visualized humerus. There is no demonstrated fracture or osseous destructive process. Calcific tendinitis. RAD/Humerus min 2 Views IMPRESSION: Calcific tendinitis. Electronically Signed: Eyal Roa MD at 15:53 EST Tel [phone], Service support , CC: Carisa MANDUJANO; Lisandro Lama MD Theatre Manager: Signed BRAIN/HEAD WITHOUT Observed: 04/15/2017 Status: F Source: [place] CONTRAST 2:59 PM [facility] REPOSITORY [facility] Imaging Services [address] [place] [id number] Brain/Head without Contrast MR#: [id number] Acct: [id number] Name: BECKI MELENDEZ Rep #: [id number] : 1950 F 67 From: Eyal Roa MD PCP: Carisa Ortega Status: REG ER Study: Brain/Head without Contrast Date of Exam: 04/15/17 Exam# [id number] Ordering Dr: Lisandro Lama MD STUDY: CT BRAIN WITHOUT CONTRAST REASON FOR EXAM: Female, 67 years old. Head injury following a fall. RADIATION DOSAGE (If Supplied By Facility): CTDIvol = ( 44.99 ) mGy, DLP = ( 796.11 ) mGycm TECHNIQUE: Transaxial CT imaging of the brain was performed without administration of intravenous contrast material. Individualized dose optimization techniques were used for this CT. COMPARISON: None. FINDINGS: Normal soft tissue structures. Normal calvarium. Normal size ventricles and extra-axial spaces for the patient's age. Normal white matter tracts of the cerebral hemispheres. Normal basal ganglia and thalami. Normal brainstem. Normal cerebellum. There is no intracranial hemorrhage. There are no findings of an acute ischemic infarction. Atherosclerotic calcification of the cavernous portions of the internal carotid arteries bilaterally. Normal visualized paranasal sinuses. CT/Brain/Head without Contrast IMPRESSION: Normal unenhanced CT scan of the brain. Electronically Signed: Eyal Roa MD at 15:58 EST Tel [phone], Service support , CC: Carisa MANDUJANO; Lisandro Lama MD Theatre Manager: Signed ALT Collected: 01/15/2017 Status: F Source: [place] 8:15 AM CLINIC REFERENCE REPOSITORY TYPE CODE TESTS RESULT OUT OF RANGE REFERENCE UNITS LAB ALT(LOINC) 7-38 U/L ALT 14 AST Collected: 01/15/2017 Status: F Source: [place] 8:15 AM CLINIC REFERENCE REPOSITORY TYPE CODE TESTS RESULT OUT OF RANGE REFERENCE UNITS LAB AST(LOINC) 13-35 U/L AST 28 BASIC METABOLIC PANL Collected: 01/15/2017 Status: F Source: [place] 8:15 AM CLINIC REFERENCE REPOSITORY TYPE CODE TESTS RESULT OUT OF REFERENCE UNITS RANGE LAB GLU(LOINC) 74-99 mg/dL Glucose High 123 LAB BUN(LOINC) 7-21 mg/dL BUN 9 LAB CRET(LOINC 0.58-0.96 mg/dL ) Creatinine 0.83 LAB NA(LOINC) 136-144 mmol/L Low Sodium 135 LAB K(LOINC) 3.7-5.1 mmol/L High Potassium 5.2 LAB CL(LOINC) 97-105 mmol/L Low Chloride 95 LAB CO2(LOINC) 22-30 mmol/L CO2 27 LAB AGAP(LOINC 9-18 mmol/L ) Anion Gap 13 LAB CA(LOINC) 8.5-10.2 mg/dL Calcium, Total 9.7 LAB GFRAA(LOIN C) eGFR- >60 Amer. LAB GFRNAA(MILI . NC) eGFR-All Other Races >60 LIPID PANEL, BASIC Collected: 01/15/2017 Status: F Source: [place] 8:15 AM CLINIC REFERENCE REPOSITORY TYPE CODE TESTS RESULT OUT OF REFERENCE UNITS RANGE LAB TRIGLY(MILI 30-149 mg/dL NC) Triglyceride 65 LAB CHOL(LOINC 100-199 mg/dL ) Cholesterol High 239 LAB HDL(LOINC) >55 mg/dL HDL-Cholesterol 74 LAB VLDL(LOINC 6-40 mg/dL ) VLDL Cholesterol 13 LAB LDL(LOINC) 60-129 mg/dL High LDL-Cholesterol 152 LAB FT(LOINC) hrs Fasting Time 12 LAB TCHDL(LOIN 1.00-5.00 C) TC:HDL Ratio 3.23 LAB LDLHDL(MILI 0.50-3.55 NC) LDL:HDL Ratio 2.05 LAB NONHDL(MILI 90-159 mg/dL NC) Non HDL High Cholesterol 165 TSH Collected: 01/15/2017 Status: F Source: [place] 8:15 AM CLINIC REFERENCE REPOSITORY TYPE CODE TESTS RESULT OUT OF RANGE REFERENCE UNITS LAB TSH(LOINC) 0.400-5.500 uU/mL TSH 1.360 FREE T3 Collected: 01/15/2017 Status: F Source: [place] 8:15 AM CLINIC REFERENCE REPOSITORY TYPE CODE TESTS RESULT OUT OF RANGE REFERENCE UNITS LAB FREET3(LOIN 2.3-4.1 pg/mL C) Free T3 3.3 FREE T4 Collected: 01/15/2017 Status: F Source: [place] 8:15 AM CLINIC REFERENCE REPOSITORY TYPE CODE TESTS RESULT OUT OF RANGE REFERENCE UNITS LAB FT4(LOINC) 0.9-1.7 ng/dL Free T4 1.2 VITAMIN D 25 HYDROXY Collected: 01/15/2017 Status: F Source: [place] 8:15 AM CLINIC REFERENCE REPOSITORY TYPE CODE TESTS RESULT OUT OF REFERENCE UNITS RANGE LAB VITD(LOINC) 31.0-80.0 ng/mL Vitamin D 25 64.0 Hydroxy LIPID PANEL, BASIC Collected: 10/09/2016 Status: F Source: [place] 8:01 AM CLINIC REFERENCE REPOSITORY TYPE CODE TESTS RESULT OUT OF REFERENCE UNITS RANGE LAB TRIGLY(MILI 30-149 mg/dL NC) Triglyceride 85 LAB CHOL(LOINC 100-199 mg/dL ) Cholesterol High 243 LAB HDL(LOINC) >55 mg/dL HDL-Cholesterol 73 LAB VLDL(LOINC 6-40 mg/dL ) VLDL Cholesterol 17 LAB LDL(LOINC) 60-129 mg/dL High LDL-Cholesterol 153 LAB FT(LOINC) hrs Fasting Time UN LAB TCHDL(LOIN 1.00-5.00 C) TC:HDL Ratio 3.33 LAB LDLHDL(MILI 0.50-3.55 NC) LDL:HDL Ratio 2.10 LAB NONHDL(MILI 90-159 mg/dL NC) Non HDL High Cholesterol 170 VITAMIN D 25 HYDROXY Collected: 10/09/2016 Status: F Source: [place] 8:01 AM CLINIC REFERENCE REPOSITORY TYPE CODE TESTS RESULT OUT OF REFERENCE UNITS RANGE LAB VITD(LOINC) 31.0-80.0 ng/mL Vitamin D 25 46.9 Hydroxy ALLERGIES ALLERGIES DATE TYPE / CODE NAME / CODE REACTION SEVERITY SOURCE 03/04/2018 Drug codeine/[id number] Vomiting [place] Allergy/[id number](S 550(RXNORM) [facility]) Hospital Repository 02/18/2018 Miscellaneous mushrooms Vomiting, SV [place] [facility] Allergy/[id number](S head pressure [facility]) Hospital Repository ENCOUNTERS ENCOUNTERS ADMIT/DISCHARGE ACCOUNT ADMITTING ENCOUNTER LOCATION SOURCE NUMBER CLASS 03/07/2018 [id number] Ambulatory BMSBuilding:W [place] 7 [facility] Repository 03/07/2018/ [id number] Ambulatory [place] [facility] 8 8 [facility] ing:CLS Repository 03/05/2018/ [id number] Ambulatory BMSBuilding:B [place] [address] [facility] Repository 03/04/2018/ [id number] Ambulatory BMSBuilding:B [place] [address] [facility] Repository 03/03/2018 [id number] Ambulatory BMSBuilding:W [place] 4 [facility] Repository 03/03/2018 [id number] Ambulatory [place] [facility] 8 [facility] ing:[facility] Repository 02/27/2018 [id number] Ambulatory BMSBuilding:B [facility] [address] [facility] Repository 02/27/2018 [id number] Ambulatory Sarah [facility] 6 [facility] ing:[facility] Repository 02/18/2018/ [id number] Ambulatory BMSBuilding:B [place] [address] [facility] Repository 02/02/2018/ [id number] Emergency [place] 8 2 [facility] ing:ED Repository 12/10/2017 [id number] Ambulatory [place] [facility] 3 [facility] ing:OPBI Repository 07/05/2017 [id number] Ambulatory BMSBuilding:W [place] 9 [facility] Repository 07/05/2017 [id number] Ambulatory Sarah [facility] 3 [facility] ing:LAB Repository 04/15/2017/ [id number] Emergency [place] 8 0 [facility] ing:ED Repository PAYERS PAYERS ENCOUNTER GUARANTOR PAYER SUBSCRIBER SOURCE 03/07/2018 BECKI K Primary BECKI K [place] [id number] Insurance:MEDICARE TROYERDOB: [facility] PART A [facility] [id number] Number[place] Rep[place] [id number]: 330 [id number] [phone] () Date:2018-03-05 03/07/2018 Secondary BECKI K [place] Insurance:MEDICAIDPol TROYERDOB: [facility] Number: [id number] Hospital [id number] Repository Date:2018-03-05 03/07/2018 Tertiary NOT GIVENUNK [place] Insurance:SELF PAY [facility] Number: Effective Repository Date:2018-03-07 03/07/2018 BECKI K Primary BECKI K [place] [id number] Insurance:MEDICARE TROYERDOB: [facility] PART A [facility] [id number] Number[place] Repository [id number]: 330 [id number] [phone] () Date:2018-03-05 03/07/2018 Secondary BECKI K [place] Insurance:MEDICAIDPol TROYERDOB: Community icy Number: [id number] Hospital [id number] Repository Date:2018-03-05 03/07/2018 Tertiary NOT GIVENUNK [place] Insurance:SELF PAY [facility] Number: Effective Repository Date:2018-03-05 03/05/2018 BECKI K Primary BECKI K [place] [id number] Insurance:MEDICARE TROYERDOB: Community [place] PART A [id number] [place] Number[facility] Repository [id number]: 330 [id number] [phone] () Date:2018-03-05 03/05/2018 Secondary BECKI K [place] Insurance:MEDICAIDPol TROYERDOB: Community icy Number: [id number] Hospital [id number] Repository Date:2018-03-05 03/05/2018 Tertiary NOT GIVENUNK [place] Insurance:SELF PAY [facility] Number: Effective Repository Date:2018-03-05 03/04/2018 BECKI K Primary BECKI K [place] [id number] Insurance:MEDICARE TROYERDOB: Community [place] PART A [facility] [id number] [place] Number[facility] Repository [address]Lvu: 330 [id number] [phone] () Date:2018-02-18 03/04/2018 Secondary BECKI K [place] Insurance:MEDICAIDPol TROYERDOB: Community icy Number: [id number] Hospital [id number] Repository Date:2018-02-18 03/04/2018 Tertiary NOT GIVENUNK [place] Insurance:SELF PAY [facility] Number: Effective Repository Date:2018-03-04 03/03/2018 BECKI K Primary BECKI K [place] [id number] Insurance:MEDICARE TROYERDOB: Community [place] PART A [facility] [id number] [place] Number[facility] Repository [address]Bof: 330 [id number] [phone] () Date:2018-02-18 03/03/2018 Secondary BECKI K [place] Insurance:MEDICAIDPol TROYERDOB: Community icy Number: [id number] Hospital [id number] Repository Date:2018-02-18 03/03/2018 Tertiary NOT GIVENUNK [place] Insurance:SELF PAY [facility] Number: Effective Repository Date:2018-03-03 03/03/2018 BECKI K Primary BECKI K [place] [id number] Insurance:MEDICARE TROYERDOB: Community [place] PART A [id number] [place] Number[facility] Repository [phone]: 330 [id number] [phone] () Date:2018-02-18 03/03/2018 Secondary BECKI K [place] Insurance:MEDICAIDPol TROYERDOB: Community icy Number: [id number] Hospital [id number] Repository Date:2018-02-18 03/03/2018 Tertiary NOT GIVENUNK [place] Insurance:SELF PAY [facility] Number: Effective Repository Date:2018-02-18 02/27/2018 BECKI K Primary BECKI K [place] [id number] Insurance:MEDICARE TROYERDOB: Community [place] PART A [facility] [id number] [place] Number: Repository [address]Ypb: 330 [id number] [phone] () Date:2018-02-18 02/27/2018 Secondary BECKI K [place] Insurance:MEDICAIDPol TROYERDOB: Community icy Number: [id number] Hospital [id number] Repository Date:2018-02-18 02/27/2018 Tertiary NOT GIVENUNK [place] Insurance:SELF PAY [facility] Number: Effective Repository Date:2018-02-27 02/27/2018 BECKI K Primary BECKI K [place] [id number] Insurance:MEDICARE TROYERDOB: Community [place] PART A [facility] [id number] Number[place] Repository [address]Voq: 330 [id number] [phone] () Date:2018-02-18 02/27/2018 Secondary BECKI K [place] Insurance:MEDICAIDPol TROYERDOB: Community [facility] Number: [id number] Hospital [id number] Repository Date:2018-02-18 02/27/2018 Tertiary NOT GIVENUNK [place] Insurance:SELF PAY [facility] Number: Effective Repository Date:2018-02-18 02/18/2018 BECKI K Primary BECKI K [place] [id number] Insurance:MEDICARE TROYERDOB: Community [place] PART A [id number] Number[place] Repository [address]Jwp: 330 [id number] [phone] () Date:2018-02-14 02/18/2018 Secondary BECKI K [place] Insurance:MEDICAIDPol TROYERDOB: Community icy Number: [id number] Hospital [id number] Repository Date:2018-02-14 02/18/2018 Tertiary NOT GIVENUNK [place] Insurance:SELF PAY [facility] Number: Effective Repository Date:2018-02-18 02/02/2018 BECKI K Primary BECKI K [place] [id number] Insurance:[id number] TROYERDOB: Community [place] Number: [id number] [id number] Repository [address]Pqx: 330) Date: [phone] ([place], [place] [address]QW: 02/02/2018 Secondary NOT GIVENUNK Sarah Insurance:SELF PAY [facility] Number: Effective Repository Date:2018-02-02 12/10/2017 BECKI K Primary BECKI K [place] [id number] Insurance:MEDICARE TROYERDOB: Community [place] PART A [facility] [id number] Number: Repository [address]Ttz: 330 [id number] [phone] () Date:2017-11-19 12/10/2017 Secondary BECKI K [place] Insurance:MEDICAIDPol TROYERDOB: Community icy Number: [id number] Hospital [id number] Repository Date:2017-11-19 12/10/2017 Tertiary NOT GIVENUNK [place] Insurance:SELF PAY [facility] Number: Effective Repository Date:2017-11-19 07/05/2017 BECKI K Primary BECKI K [place] [id number] Insurance:MEDICARE TROYERDOB: Community [place] PART A [facility] [id number] Number: Repository [address]Rbm: 330 [id number] [phone] () Date:2017-07-05 07/05/2017 Secondary BECKI K [place] Insurance:MEDICAIDPol TROYERDOB: Community icy Number: [id number] Hospital [id number] Repository Date:2017-07-05 07/05/2017 Tertiary NOT GIVENUNK [place] Insurance:SELF PAY [facility] Number: Effective Repository Date:2017-07-05 07/05/2017 BECKI K Primary BECKI K [place] [id number] Insurance:MEDICARE TROYERDOB: Community [place] PART A [facility] [id number] [place] Number[facility] Repository [address]Din: 330 [id number] [phone] () Date:2017-07-05 07/05/2017 Secondary BECKI K [place] Insurance:MEDICAIDPol TROYERDOB: Community [facility] Number: [id number] Hospital [id number] Repository Date:2017-07-05 07/05/2017 Tertiary NOT GIVENUNK [place] Insurance:SELF PAY [facility] Number: Effective Repository Date:2017-07-05 04/15/2017 BECKI K Primary BECKI K [place] [id number] Insurance:MEDICARE TROYERDOB: Community [place] PART A [facility] [id number] [place] Number[facility] Repository [address]Ahx: 330 [id number] [phone] () Date:2017-04-15 04/15/2017 Secondary BECKI K [place] Insurance:MEDICAIDPol TROYERDOB: Community [facility] Number: [id number] Hospital [id number] Repository Date:2017-04-15 04/15/2017 Tertiary NOT GIVENUNK [place] Insurance:SELF PAY [facility] Number: Effective Repository Date:2017-04-15
== END ==
PROVIDERS: Family Provider Nurse Practitioner Family; PCP Nurse Practitioner Family; Referring Provider Internal Medicine Cardiovascular Disease; Visit Provider Internal Medicine Cardiovascular Disease
DX: R07.89 Other chest pain (principal)
CPT/HCPCS: 93306

== ENCOUNTER → 2018-03-03 09:27 | Outpatient (CLI) | payer MEDICARE, MEDICAID, SELFPAY ==
[2018-02-18 14:26] VITALS: BMI 24.6
--- NOTE | 2018-03-03 09:29 | STEWCON_ITS ---
Reason For Study: SOB, Chest Pain Stress Results Protocol: Cristian Protocol Maximum Predicted HR: 155 bpm Target HR: 132 bpm % Maximum Predicted HR: 99 % DurationHeart Rate Stage (mm:ss) (bpm) BP Comment Baseline 90 158/90No Chest Pain; Diluted Definity 2 ML Given Cristian Protocol Stage I 2:38 153 204/80No Chest Pain; Severe Dyspnea; Audible Wheezes Recovery 109 148/80No Chest Pain; No Dyspnea; No Wheezes Stress Duration: 2:38 mm:ss Maximum Stress HR: 153 bpm METS: 4 Baseline Echocardiogram Findings The estimated ejection fraction is 65 %. Stress Echo Wall motion Data Resting WM Intermediate WM Stress WM Resting Wall Motion Wall Motion Stress No regional wall motion Basal anteroseptal: Mildly abnormalities noted. hypokinetic. Mid-Anterior : Mildly hypokinetic. Mid-Lateral : Mildly hypokinetic. EKG Data The baseline ECG displays normal sinus rhythm. The patient exercised according to the regular Cristian protocol for a total duration of 2:38. The maximum heart rate attained was 155 beats per minute. This was 100% of maximum predicted heart rate. The patient exercised into stage 1 of the Cristian protocol. During stress, there were no ST or T wave changes noted to suggest ischemia. No clinical angina was noted. Interpretation Summary The study was technically difficult. Contrast injection was performed. The estimated ejection fraction is 65 %. Basal anteroseptal: Mildly hypokinetic Mid-Anterior : Mildly hypokinetic Mid-Lateral : Mildly hypokinetic Abnormal, adequate, treadmill echocardiogram. Positive for ischemia by echocardiographic criteria. No anginal symptoms noted. Hypertensive blood pressure response to exercise. Poor exercise capacity for age. Patient appeared to develop mid anterior and lateral hypokinesis at peak exercise. Poor echo images requiring Definity contrast enhancing agent. Rare PVCs noted. Final LVEF of 55%. No complications. Ordering Physician: Adam Katz Referring Physician: Adam Katz Performed By: April Pappas RDCS, RVT
--- OUTSIDE RECORDS SUMMARY | 2018-06-04 21:42 | XMS RPT_ITS ---
:1950 Author Organization OHIP Support Name Relationship Address Phone R Unavailable Unavailable Unavailable AL, LELA Unavailable [address] + [place] [address] AL, KRYSTINA Unavailable [address] + [place] [address] R Unavailable Unavailable Unavailable AL, LELA Unavailable [address] + [place] [address] AL, KRYSTINA Unavailable [address] + [place] [address] R Unavailable Unavailable Unavailable AL, LELA Unavailable [address] + [place] [address] AL, KRYSTINA Unavailable [address] + [place] [address] R Unavailable Unavailable Unavailable AL, LELA Unavailable [address] + [place] [address] AL, KRYSTINA Unavailable [address] + [place] [address] R Unavailable Unavailable Unavailable AL, LELA Unavailable [address] + [place] [address] AL, KRYSTINA Unavailable [address] + [place] [address] R Unavailable Unavailable Unavailable AL, LELA Unavailable [address] + [place] [address] AL, KRYSTINA Unavailable [address] + [place] [address] R Unavailable Unavailable Unavailable AL, LELA Unavailable [address] + [place] [address] AL, KRYSTINA Unavailable [address] + [place] [address] R Unavailable Unavailable Unavailable AL, LELA Unavailable [address] + [place] [address] AL, KRYSTINA Unavailable [address] + [place] [address] R Unavailable Unavailable Unavailable ALGARRICKLELA Unavailable [address] + [place], [place] . KRYSTINA MELENDEZ Unavailable . + ., . . R Unavailable Unavailable Unavailable AL, LELA Unavailable [address] + [place], [place] KRYSTINA MELENDEZ Unavailable Unavailable + R Unavailable Unavailable Unavailable AL LELA Unavailable [address] + [place], [place] MELENDEZNDA Unavailable Unavailable + R Unavailable Unavailable Unavailable AL LELA Unavailable [address] [phone] [place], [place] ROMY MELENDEZNDA Unavailable [address] [phone] [place] R Unavailable Unavailable Unavailable AL LELA Unavailable [address] [phone]~[facility] [place], [place] PATRICE MELENDEZA Unavailable [address] [phone]~[facility] [place] R Unavailable Unavailable Unavailable AL, LELA Unavailable [address] [phone]~[facility] [place] . PATRICE MELENDEZA Unavailable [address] [phone] [place] . Care Team Providers Name Role Alberto Fernandez Attending Unavailable Carisa Ortega Referring Unavailable Adam Katz Attending Unavailable Adam Katz Referring Unavailable Carisa Ortega Primary Care Unavailable Adam Katz Attending Unavailable Adam Katz Referring Unavailable Ambrose MANDUJANO, Carisa Primary Care Unavailable Adam Katz Attending Unavailable Ambrose MANDUJANO, Carisa Referring Unavailable Ambrose MANDUJANO, Carisa Primary Care Unavailable Deep Wilburn Attending Unavailable [facility]IN[facility], O[facility]IN O[facility]LL Attending Unavailable CLINIC, O[facility]IN OCONNELL Referring Unavailable Ambrose MANDUJANO, Carisa Primary Care Unavailable Deep Ascencio Attending Unavailable Bryant Do Referring Unavailable Bryant Do Attending Unavailable Bryant Do Referring Unavailable Swinarindert NAZIA, Carisa Primary Care Unavailable Lisandro Lama Attending Unavailable Ambrose MANDUJANO, Carisa Primary Care Unavailable Will Katzel Attending Unavailable Adam Katz Referring Unavailable Katz, Adam Attending Unavailable Katz, Adam Referring Unavailable Sterling, Adam Attending Unavailable Meghannt NAZIA, Carisa Referring Unavailable Sterling, Adam Attending Unavailable Katz, Adam Referring Unavailable Swihart NAZIA, Carisa Primary Care Unavailable Adam Katz Consulting Unavailable Adam Katz Attending Unavailable Katz, Adam Referring Unavailable [facility] Primary Care Unavailable Ambrose MANDUJANO, Carisa Consulting Unavailable PROBLEMS PROBLEMS DATE TYPE CONDITION / CODE ATTENDING STATUS SOURCE 03/28/2018 Unknown R94.39 - Abnormal Adam Katz Active [place] [facility] other [facility] cardiovascular Hospital function study / Repository R94.39(ICD-10) 03/07/2018 Unknown R07.89 - Other chest Adam Katz Active [facility] pain / R07.89(ICD-10) [facility] Hospital Repository 03/07/2018 Unknown R06.09 - Other forms Adam Katz Active [facility] of dyspnea / Community R06.09(ICD-10) Hospital Repository 03/07/2018 Unknown J44.9 - Chronic Adam Katz Active [facility] obstructive pulmonary Community disease, unspecified / Hospital J44.9(ICD-10) Repository 03/26/2018 Unknown R07.9 - Chest pain, Adam Katz Active [place] unspecified / Community R07.9(ICD-10) Hospital Repository 02/18/2018 Unknown E78.5 - Adam Katz Active [facility] Hyperlipidemia, Community unspecified / Hospital E78.5(ICD-10) Repository 02/18/2018 Unknown I10 - Essential Adam Katz Active [place] (primary) hypertension Community / I10(ICD-10) Hospital Repository 12/10/2017 Unknown Z12.31 - Encounter for OLVIN MARQUES Active [place] [facility] of breast / Repository Z12.31(ICD-10) 08/16/2017 Unknown R94.31 - Abnormal [place], Active [place] electrocardiogram [facility] [ECG] [EKG] / Hospital R94.31(ICD-10) Repository 08/13/2017 Unknown Z01.810 - Encounter Bryant Do Active [place] for preprocedural [facility] Hospital examination / Repository Z01.810(ICD-10) 04/15/2017 Unknown M25.519 - Pain in Dain[place], Active [place] unspecified shoulder / Lisandro Community M25.519(ICD-10) Hospital Repository PROCEDURES PROCEDURES No Procedure Records FoundRESULTS RESULTS CARDIOLOGY VISIT Observed: 03/07/2018 Status: F Source: [place] REPORT 10:12 AM [facility] REPOSITORY [facility] [address] [place] [address] OFFICE VISIT Date of Service: 03/04/18 MR#: [id number] Acct: [id number] Name: BECKI MELENDEZ Rep #: [id number] : 1950 Provider: KALINA Renee Age/Sex: 67/F Location: [facility] Status: Signed HPI HPI Details: BECKI MELENDEZ, [...] Reasons: 2 WK BP CK PER DJN Manager File Required: No Accompanied by: None Is patient [...] 03/07/2018 Status: F Source: [place] 10:11 AM [place] [address] [place] [address] OFFICE VISIT Date of Service: 03/05/18 MR#: [id number] Acct: [id number] Patient: BECKI MELENDEZ Rep #: [id number] : 1950 Provider: Adam Katz MD Age/Sex: 67/F Location: [facility] Status: Signed Intake Intake Visit Reasons: GRETA [...] Patient here for cath teaching. 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 REPOSITORY TYPE CODE TESTS RESULT OUT OF RANGE REFERENCE UNITS LAB L300.4150 11.7-14.9 SECONDS Normal PROTIME 12.1 LAB L300.4200 Normal INR 0.9 Performed By: #### L300.3900, L300.4310 #### [facility] [address] [place], [place], [id number] PARTIAL THROMBOPLAST Collected: 03/07/2018 Status: F Source: SARAH TIME 9:[address] [facility] REPOSITORY TYPE CODE TESTS RESULT OUT OF RANGE REFERENCE UNITS LAB L300.4310 24.1-36.2 Seconds Normal PTT 30.3 Performed By: #### L300.3900, L300.4310 #### [facility] [address] [place], [place], [address] CBC-COMPLETE BLOOD CNT Collected: 03/07/2018 Status: F Source: SARAH NO DIFF 9:[address] [facility] REPOSITORY TYPE CODE TESTS RESULT OUT OF [...] MPV 10.9 Performed By: #### L100.0500 #### [facility] [address] [facility] [place], [place], [address] BASIC METABOLIC Collected: 03/07/2018 Status: F Source: [place]AH PROFILE (BMP) 9:[address] [facility] REPOSITORY TYPE CODE TESTS RESULT OUT OF [...] GAP 12 Performed By: #### L500.2500 #### [facility] [address] [facility] [place], [address] BLOOD GASES BY CPS Collected: 03/07/2018 Status: F Source: SARAH 9:[address] [facility] REPOSITORY TYPE CODE TESTS RESULT OUT OF [...] ISTAT 88 Performed By: #### L9000.0800 #### [facility] Point of Care [address] [place], [place] [id number] VENOUS BLOOD GAS Collected: 03/07/2018 Status: F Source: [place] 8:[address] [facility] REPOSITORY TYPE CODE TESTS RESULT OUT OF [...] 23 ISTAT Performed By: #### L9000.0810 #### [facility] Point of Care [address] [place] [address] VENOUS BLOOD GAS Collected: 03/07/2018 Status: F Source: [place] 8:[address] [facility] REPOSITORY TYPE CODE TESTS RESULT OUT OF [...] 23 ISTAT Performed By: #### L9000.0810 #### [facility] Point of Care [address] [place] [address] CHEST PA AND LATERAL Observed: 03/05/2018 Status: F Source: [place] 2:[address] [facility] REPOSITORY [facility] Imaging Services [address] [place] [address] Chest PA and Lateral MR#: [id number] Acct: [id number] Name: BECKI MELENDEZ Shy Rep #: [id number] : 1950 F 67 From: Sanjeev Momin MD PCP: [facility]IN [facility] Status: PRE SDC Study: Chest PA and Lateral Date of Exam: 03/05/18 Exam# [id number] Ordering Dr: Adam Katz MD STUDY: X-RAY [...] EST , Service support , CC: Adam Katz MD; [facility] Chemical Production Engineer: Signed STRESS TEST ECHO W/ Observed: 03/04/2018 Status: F Source: [place] CONTRAST 5:[address] [facility] REPOSITORY [facility] Cardiovascular Services [address] [place] [address] Stress Test Echo W/Contrast MR#: [id number] Acct: [id number] Name: BECKI MELENDEZ Rep #: [id number] : 1950 67 From: Adam Katz MD [...] Date Dictated: 03/03/18 0958 Date Transcribed: 03/04/181723 Chemical Production Engineer: Signed ECHOCARDIOGRAM COMPLETE Observed: 02/27/2018 Status: F Source: [place] 4:[address] [facility] REPOSITORY [facility] Cardiovascular Services [address] [place] [address] Echo Complete 02/27/18 1509 MR#: [id number] Acct: [id number] Name: BECKI MELENDEZ Rep #: [id number] : 1950 67 From: Adam Katz MD [...] MD CC: Adam Katz MD; Carisa Jesus HAND NAILER Date Dictated: 02/27/18 1509 Date Transcribed: 02/27/18 1613 Chemical Production Engineer: Signed CARDIOLOGY VISIT Observed: 02/18/2018 Status: F Source: [place] REPORT 3:[address] [facility] REPOSITORY [facility] [address] [place] [address]. [address] [place] [address] OFFICE VISIT Date of Service: 02/18/18 MR#: [id number] Acct: [id number] Name: BECKI MELENDEZ Rep #: [id number] : 1950 Provider: Adam Katz MD Age/Sex: 67/F [place] [facility] [place] Status: Signed HPI HPI Chief Complaint: chest [...] Visit Reasons: DIZZINESS, CHEST DISCOMFORT (FREE CLINIC) Manager File Required: No Is patient in pain?: No [...] AND DIFFERENTIAL Collected: 02/04/2018 Status: F Source: [place] 8:34 AM CLINIC REFERENCE REPOSITORY TYPE CODE [...] Abs Lymph 2.74 LAB AMONO(LOIN % C) Hardy% 9.1 LAB AAMONO(MILI <0.87 k/uL NC) Abs Hardy 0.64 LAB AEOS(LOINC % ) Eosin% 1.3 LAB AAEOS(LOIN <0.46 k/uL C) Abs Eosin 0.09 LAB ABASO(LOIN % C) Baso% 0.7 LAB AABASO(MILI <0.11 k/uL NC) Abs Baso 0.05 LAB AUNRBC(MILI 0 /100 WBC NC) NRBCs 0.0 LAB ABNRBC(MILI <0.01 k/uL NC) Absolute nRBC <0.01 LAB DTYP(LOINC ) DTYPE ADIFF Performed By: #### CBCDIF, CMP, LIPB, FT4, TSH, VITD #### [facility] Routine Lab [address] [place], [place] [address] COMP METABOLIC PANEL Collected: 02/04/2018 Status: F Source: [place] 8:34 AM CLINIC REFERENCE REPOSITORY TYPE CODE [...] CBCDIF, CMP, LIPB, FT4, TSH, VITD #### [facility] Routine Lab [address] [place] [address] LIPID PANEL, BASIC Collected: 02/04/2018 Status: F Source: [place] 8:34 AM CLINIC REFERENCE REPOSITORY TYPE CODE [...] CBCDIF, CMP, LIPB, FT4, TSH, VITD #### [facility] Routine Lab [address] [place] [address] FREE T4 Collected: 02/04/2018 Status: F Source: [place] 8:34 AM CLINIC REFERENCE REPOSITORY TYPE CODE TESTS RESULT OUT OF RANGE REFERENCE UNITS LAB FT4(LOINC) 0.9-1.7 ng/dL Free T4 1.2 Performed By: #### CBCDIF, CMP, LIPB, FT4, TSH, VITD #### [facility] Routine Lab [address] [place] [id number] TSH Collected: 02/04/2018 Status: F Source: [place] 8:34 AM CLINIC REFERENCE REPOSITORY TYPE CODE TESTS RESULT OUT OF RANGE REFERENCE UNITS LAB TSH(LOINC) 0.400-5.500 uU/mL TSH 1.940 Performed By: #### CBCDIF, CMP, LIPB, FT4, TSH, VITD #### [facility] Routine Lab [address] [place], [place] [address] VITAMIN D 25 HYDROXY Collected: 02/04/2018 Status: F Source: [place] 8:34 AM CLINIC REFERENCE REPOSITORY TYPE CODE TESTS RESULT OUT OF REFERENCE UNITS RANGE LAB VITD(LOINC) 31.0-80.0 ng/mL Vitamin D 25 53.9 Hydroxy Performed By: #### CBCDIF, CMP, LIPB, FT4, TSH, VITD #### [facility] Routine Lab [address] [place], [place] [address] EMERGENCY DEPARTMENT Observed: 02/02/2018 Status: F Source: [place] SUMMARY 8:[address] [facility] REPOSITORY [facility] Medical Records Department [address] [place] [address] Emergency Department Summary 02/02/182003 MR#: [id number] Acct: [id number] Name: BECKI MELENDEZ Rep #: [id number] : 1950 67 From: Deep Wilburn MD [...] foot contusion This note was generated with Safehis dictation software. It may contain incorrect words, [...] your Primary Care Provider. Call [facility] ([phone]) or report to the closest Emergency Room. Call 911 if necessary. 02/02/182009 <Electronically signed by Deep Wilburn MD> Date Deep Wilburn MD Cosigner Signature (If Indicated): Date CC: Carisa MANDUJANO FOOT MIN 3 VIEWS Observed: 02/02/2018 Status: F Source: [place] 7:[address] [facility] REPOSITORY [facility] Imaging Services [address] [place] [address] Foot min 3 Views MR#: [id number] Acct: [id number] Name: BECKI MELENDEZ Rep #: [id number] : 1950 F 67 From: Arun Rowland MD PCP: Carisa Ortega Status: REG ER Study: Foot min 3 Views Date of Exam: 02/02/18 Exam# [id number] Ordering Dr: Deep Wilburn MD STUDY: X-RAY [...] , CC: Carisa MANDUJANO; Deep Wilburn MD Chemical Production Engineer: Signed SCREENING MAMM (CAD), Observed: 12/10/2017 Status: F Source: [place] BILAT 7:[address] [facility] REPOSITORY [facility] Imaging Services [address] [place] [address] SCREENING MAMM (CAD), BILAT MR#: [id number] Acct: [id number] Name: BECKI MELENDEZ Rep #: [id number] : 1950 F 67 From: Eyal Roa MD PCP: Carisa Ortega Status: REG CLI Study: SCREENING MAMM (CAD), BILAT Date of Exam: 12/10/17 Exam# [id number] Ordering Dr: Olvin Blanton MAMMOGRAPHY - BILATERAL [...] delay biopsy of a clinically suspicious abnormality. [id number] Electronically Signed: Eyal Roa MD at 8:27 EDT Tel [phone], Service support , CC: Carisa MANDUJANO; [facility] Chemical Production Engineer: Signed CBC AND DIFFERENTIAL Collected: 11/08/2017 Status: F Source: [place] 8:01 AM CLINIC REFERENCE REPOSITORY TYPE CODE [...] Abs Lymph 2.88 LAB AMONO(LOIN % C) Hardy% 9.6 LAB AAMONO(MILI <0.87 k/uL NC) Abs Hardy 0.56 LAB AEOS(LOINC % ) Eosin% 1.4 LAB AAEOS(LOIN <0.46 k/uL C) Abs Eosin 0.08 LAB ABASO(LOIN % C) Baso% 1.2 LAB AABASO(MILI <0.11 k/uL NC) Abs Baso 0.07 LAB AUNRBC(MILI 0 /100 WBC NC) NRBCs 0.0 LAB ABNRBC(MILI <0.01 k/uL NC) Absolute nRBC <0.01 LAB DTYP(LOINC ) DTYPE ADIFF VITAMIN D 25 HYDROXY Collected: 11/08/2017 Status: F Source: [place] 8:01 AM CLINIC REFERENCE REPOSITORY TYPE CODE TESTS RESULT OUT OF REFERENCE UNITS RANGE LAB VITD(LOINC) 31.0-80.0 ng/mL Vitamin D 25 70.7 Hydroxy COMP METABOLIC PANEL Collected: 11/08/2017 Status: F Source: [place] 8:01 AM [facility] REFERENCE REPOSITORY TYPE CODE TESTS RESULT OUT [...] PANEL, BASIC Collected: 11/08/2017 Status: F Source: [place] 8:01 AM CLINIC REFERENCE REPOSITORY TYPE CODE [...] 1.84 TSH Collected: 11/08/2017 Status: F Source: [place] 8:01 AM [facility] REFERENCE REPOSITORY TYPE CODE TESTS RESULT OUT OF RANGE REFERENCE UNITS LAB TSH(LOINC) 0.400-5.500 uU/mL TSH 1.710 FREE T4 Collected: 11/08/2017 Status: F Source: [place] 8:01 AM [facility] REFERENCE REPOSITORY TYPE CODE TESTS RESULT OUT OF RANGE REFERENCE UNITS LAB FT4(LOINC) 0.9-1.7 ng/dL Free T4 1.1 HEMOGLOBIN A1C Collected: 11/08/2017 Status: F Source: [place] 8:01 AM [facility] REFERENCE REPOSITORY TYPE CODE TESTS RESULT OUT OF REFERENCE UNITS RANGE LAB HGBA1C(MILI 4.3-5.6 % NC) Hemoglobin A1c 5.1 LAB HBA0(LOINC mg/dL ) Est. Average Glucose 100 CBC AND DIFFERENTIAL Collected: 07/26/2017 Status: F Source: [place] 8:16 AM [facility] REFERENCE REPOSITORY TYPE CODE TESTS RESULT OUT [...] Abs Lymph 2.61 LAB AMONO(LOIN % C) Hardy% 7.8 LAB AAMONO(MILI <0.87 k/uL NC) Abs Hardy 0.53 LAB AEOS(LOINC % ) Eosin% 4.3 LAB AAEOS(LOIN <0.46 k/uL C) Abs Eosin 0.29 LAB ABASO(LOIN % C) Baso% 1.5 LAB AABASO(MILI <0.11 k/uL NC) Abs Baso 0.10 LAB AUNRBC(MILI 0 /100 WBC NC) NRBCs 0.0 LAB ABNRBC(MILI <0.01 k/uL NC) Absolute nRBC <0.01 LAB DTYP(LOINC ) DTYPE ADIFF FREE T4 Collected: 07/26/2017 Status: F Source: [place] 8:16 AM CLINIC REFERENCE REPOSITORY TYPE CODE TESTS RESULT OUT OF RANGE REFERENCE UNITS LAB FT4(LOINC) 0.9-1.7 ng/dL Free T4 1.1 COMP METABOLIC PANEL Collected: 07/26/2017 Status: F Source: [place] 8:16 AM CLINIC REFERENCE REPOSITORY TYPE CODE [...] PANEL, BASIC Collected: 07/26/2017 Status: F Source: [place] 8:16 AM CLINIC REFERENCE REPOSITORY TYPE CODE [...] 1.25 TSH Collected: 07/26/2017 Status: F Source: [place] 8:16 AM CLINIC REFERENCE REPOSITORY TYPE CODE TESTS RESULT OUT OF RANGE REFERENCE UNITS LAB TSH(LOINC) 0.400-5.500 uU/mL TSH 1.930 HEMOGLOBIN A1C Collected: 07/26/2017 Status: F Source: [place] 8:16 AM CLINIC REFERENCE REPOSITORY TYPE CODE TESTS RESULT OUT OF REFERENCE UNITS RANGE LAB HGBA1C(MILI 4.3-5.6 % NC) Hemoglobin A1c 5.2 LAB HBA0(LOINC mg/dL ) Est. Average Glucose 103 VITAMIN D 25 HYDROXY Collected: 07/26/2017 Status: F Source: [place] 8:16 AM CLINIC REFERENCE REPOSITORY TYPE CODE TESTS RESULT OUT OF REFERENCE UNITS RANGE LAB VITD(LOINC) 31.0-80.0 ng/mL Vitamin D 25 63.2 Hydroxy 12 LEAD ELECTROCARDIOGRAM Observed: 07/08/2017 Status: F Source: [place] 2:46 PM [facility] REPOSITORY [facility] Cardiovascular Services [address] [place] [address] 12 Lead EKG 07/05/17 1116 MR#: [id number] Acct: [id number] Name: BECKI MELENDEZ Rep #: [id number] : 1950 67 From: Deep Ascencio MD [...] Abnormal ECG Confirmed by SONU HUGHES, DEEP ([id number]), brands editor DEON GUNDERSON ([id number]) on 07/08/2017 2:45:47 PM Referred By: Bryant Do Confirmed By:DEEP ASCENCIO MD 07/08/17 1445 Date Deep Ascencio MD CC: Carisa MANDUJANO; Bryant HODGES Signed CHEST PA AND LATERAL Observed: 07/05/2017 Status: F Source: [place] 10:46 AM [facility] REPOSITORY [facility] Imaging Services [address] [place] [address] Chest PA and Lateral MR#: [id number] Acct: [id number] Name: BECKI MELENDEZ Rep #: [id number] : 1950 F 67 From: Eyal Roa MD PCP: Carisa Ortega Status: REG CLI Study: Chest PA and Lateral Date of Exam: 07/05/17 Exam# [id number] Ordering Dr: Bryant Do-C STUDY: X-RAY CHEST [...] Eyal Roa MD at 13:57 EDT Tel [phone], Service support , CC: Carisa MANDUJANO; Bryant HODGES Chemical Production Engineer: Signed CBC-COMPLETE BLOOD CNT Collected: 07/05/2017 Status: F Source: [place] NO DIFF 10:[address] [facility] REPOSITORY TYPE CODE TESTS RESULT OUT OF [...] MPV 10.1 Performed By: #### L100.0500 #### [facility] [address] [place], [address] BASIC METABOLIC Collected: 07/05/2017 Status: F Source: [place] PROFILE (BMP) 10:[address] [facility] REPOSITORY TYPE CODE TESTS RESULT OUT OF [...] GAP 8 Performed By: #### L500.2500 #### [facility] [place], [address] CBC AND DIFFERENTIAL Collected: 04/19/2017 Status: F Source: [place] 8:03 AM CLINIC REFERENCE REPOSITORY TYPE CODE [...] Abs Lymph 2.35 LAB AMONO(LOIN % C) Hardy% 9.2 LAB AAMONO(MILI <0.87 k/uL NC) Abs Hardy 0.49 LAB AEOS(LOINC % ) Eosin% 1.5 LAB AAEOS(LOIN <0.46 k/uL C) Abs Eosin 0.08 LAB ABASO(LOIN % C) Baso% 1.1 LAB AABASO(MILI <0.11 k/uL NC) Abs Baso 0.06 LAB AUNRBC(MILI 0 /100 WBC NC) NRBCs 0.0 LAB ABNRBC(MILI <0.01 k/uL NC) Absolute nRBC <0.01 LAB DTYP(LOINC ) DTYPE ADIFF COMP METABOLIC PANEL Collected: 04/19/2017 Status: F Source: [place] 8:03 AM CLINIC REFERENCE REPOSITORY TYPE CODE [...] PANEL, BASIC Collected: 04/19/2017 Status: F Source: [place] 8:03 AM CLINIC REFERENCE REPOSITORY TYPE CODE [...] FREE T4 Collected: 04/19/2017 Status: F Source: [place] 8:03 AM CLINIC REFERENCE REPOSITORY TYPE CODE TESTS RESULT OUT OF RANGE REFERENCE UNITS LAB FT4(LOINC) 0.9-1.7 ng/dL Free T4 1.2 TSH Collected: 04/19/2017 Status: F Source: [place] 8:03 AM CLINIC REFERENCE REPOSITORY TYPE CODE TESTS RESULT OUT OF RANGE REFERENCE UNITS LAB TSH(LOINC) 0.400-5.500 uU/mL TSH 1.310 HEMOGLOBIN A1C Collected: 04/19/2017 Status: F Source: [place] 8:03 AM CLINIC REFERENCE REPOSITORY TYPE CODE TESTS RESULT OUT OF REFERENCE UNITS RANGE LAB HGBA1C(MILI 4.3-5.6 % NC) Hemoglobin A1c 5.5 LAB HBA0(LOINC mg/dL ) Est. Average Glucose 111 VITAMIN D 25 HYDROXY Collected: 04/19/2017 Status: F Source: [place] 8:03 AM CLINIC REFERENCE REPOSITORY TYPE CODE TESTS RESULT OUT OF REFERENCE UNITS RANGE LAB VITD(LOINC) 31.0-80.0 ng/mL Vitamin D 25 72.4 Hydroxy 12 LEAD ELECTROCARDIOGRAM Observed: 04/18/2017 Status: F Source: [place] 11:[address] [facility] REPOSITORY [facility] Cardiovascular Services [address] [place] [address] 12 Lead EKG 04/15/17 1507 MR#: [id number] Acct: [id number] Name: BECKI MELENDEZ Rep #: [id number] : 1950 67 From: Deep Ascencio MD [...] normal ECG Confirmed by SONU HUGHES, DEEP ([id number]), brands editor DEON GUNDERSON (56) on 04/18/2017 11:22:59 AM Referred By: DAINA Confirmed By:DEEP ASCENCIO MD 04/18/17 1123 Date Deep Ascencio MD CC: Carisa MANDUJANO Signed EMERGENCY DEPARTMENT Observed: 04/15/2017 Status: F Source: [place] SUMMARY 5:[address] [facility] REPOSITORY [facility] Medical Records Department [address] [place] [address] Emergency Department Summary 04/15/17 1653 MR#: [id number] Acct: [id number] Name: BECKI MELENDEZ Rep #: [id number] : 1950 67 From: Lisandro Lama MD [...] Treatment Plan: She will be discharged with [place] and Zofran. Instructed to follow-up her primary care physician 1 week for another exam. Return to the emergency department for any worsening symptoms. Disposition: To home in improved and stable condition. Impression: 1. Fall. 2. Concussion. 3. Contusion left shoulder. 4. Sinus tachycardia. This note was generated with Safehis dictation software. It may contain incorrect words, spelling, and punctuation that were not noted in review of the chart prior to signing ED Disposition - Plan for ED Patient: Chief Complaint: Fall Instructions: ED Shoulder Pain UKO, ED Concussion Prescriptions: Hydrocodone Bitart/Apap 5-325 [[place] 5/325] 1 - 2 tablet PO Q4H PRN PRN #20 tablet PRN Reason: Pain Ondansetron [Zofran Odt] 4 mg PO Q8H PRN PRN #10 tablet PRN Reason: Nausea Docusate Sodium [Colace] 100 mg PO DAILY #20 capsule Referrals: Carisa Jesus, [facility]C [Primary Care Provider] - 1 Week What to do if you have Problems For any increased pain, shortness of breath, bleeding, nausea or vomiting, chest pain, or any unexpected problems, contact your Primary Care Provider. Call [facility] ([phone]) or report to the closest Emergency Room. Call 911 if necessary. 04/15/17 5031 <Electronically signed by Lisandro Lama MD> Date Lisandro Lama MD Cosigner Signature (If Indicated): Date CC: Carisa Contrerasjessee MANDUJANO CBC W/DIFF, AUTOMATED Collected: 04/15/2017 Status: F Source: [place] 3:[address] [facility] REPOSITORY TYPE CODE TESTS RESULT OUT OF [...] Lymph 1.83 Performed By: #### L100.0100 #### [facility] [address] [place], [address] BASIC METABOLIC Collected: 04/15/2017 Status: F Source: SARAH PROFILE (BMP) 3:[address] [facility] REPOSITORY TYPE CODE TESTS RESULT OUT OF [...] GAP 9 Performed By: #### L500.2500 #### [facility] [address] [place], [address] HUMERUS MIN 2 VIEWS Observed: 04/15/2017 Status: F Source: SARAH 2:[address] [facility] [address]POSIT[address] [facility] Imaging Services [address] [place] [address] Humerus min 2 Views MR#: [id number] Acct: [id number] Name: BECKI MELENDEZ Rep #: [id number] : 1950 F 67 From: Eyal Roa MD PCP: Carisa Ortega Status: REG ER Study: Humerus min 2 Views Date of Exam: 04/15/17 Exam# [id number] Ordering Dr: Lisandro Lama MD STUDY: X-RAY [...] Eyal Roa MD at 15:53 EST Tel [phone], Service support , CC: Carisa MANDUJANO; Lisandro Lama MD Chemical Production Engineer: Signed BRAIN/HEAD WITHOUT Observed: 04/15/2017 Status: F Source: [place] CONTRAST 2:[address] [facility] REPOSITORY [facility] Imaging Services [address] [place] [address] Brain/Head without Contrast MR#: [id number] Acct: [id number] Name: BECKI MELENDEZ Rep #: [id number] : 1950 F 67 From: Eyal Roa MD PCP: Carisa Ortega Status: REG ER Study: Brain/Head without Contrast Date of Exam: 04/15/17 Exam# [id number] Ordering Dr: Lisandro Lama MD STUDY: CT [...] Eyal Roa MD at 15:58 EST Tel [phone], Service support , CC: Carisa MANDUJANO; Lisandro Lama MD Chemical Production Engineer: Signed ALT Collected: 01/15/2017 Status: F Source: [place] 8:15 AM [facility]IN[facility]FERENCE REPOSITORY TYPE CODE TESTS RESULT OUT OF RANGE REFERENCE UNITS LAB ALT(LOINC) 7-38 U/L ALT 14 AST Collected: 01/15/2017 Status: F Source: [place] 8:15 AM CLINIC REFERENCE REPOSITORY TYPE CODE TESTS RESULT OUT OF RANGE REFERENCE UNITS LAB AST(LOINC) 13-35 U/L AST 28 BASIC METABOLIC PANL Collected: 01/15/2017 Status: F Source: [place] 8:15 AM CLINIC REFERENCE REPOSITORY TYPE CODE [...] PANEL, BASIC Collected: 01/15/2017 Status: F Source: [place] 8:15 AM CLINIC REFERENCE REPOSITORY TYPE CODE [...] 165 TSH Collected: 01/15/2017 Status: F Source: [place] 8:15 AM CLINIC REFERENCE REPOSITORY TYPE CODE TESTS RESULT OUT OF RANGE REFERENCE UNITS LAB TSH(LOINC) 0.400-5.500 uU/mL TSH 1.360 FREE T3 Collected: 01/15/2017 Status: F Source: [place] 8:15 AM CLINIC REFERENCE REPOSITORY TYPE CODE TESTS RESULT OUT OF RANGE REFERENCE UNITS LAB FREET3(LOIN 2.3-4.1 pg/mL C) Free T3 3.3 FREE T4 Collected: 01/15/2017 Status: F Source: [place] 8:15 AM CLINIC REFERENCE REPOSITORY TYPE CODE TESTS RESULT OUT OF RANGE REFERENCE UNITS LAB FT4(LOINC) 0.9-1.7 ng/dL Free T4 1.2 VITAMIN D 25 HYDROXY Collected: 01/15/2017 Status: F Source: [place] 8:15 AM CLINIC REFERENCE REPOSITORY TYPE CODE TESTS RESULT OUT OF REFERENCE UNITS RANGE LAB VITD(LOINC) 31.0-80.0 ng/mL Vitamin D 25 64.0 Hydroxy LIPID PANEL, BASIC Collected: 10/09/2016 Status: F Source: [place] 8:01 AM CLINIC REFERENCE REPOSITORY TYPE CODE [...] 25 HYDROXY Collected: 10/09/2016 Status: F Source: [place] 8:01 AM CLINIC REFERENCE REPOSITORY TYPE CODE TESTS RESULT OUT OF REFERENCE UNITS RANGE LAB VITD(LOINC) 31.0-80.0 ng/mL Vitamin D 25 46.9 Hydroxy ALLERGIES ALLERGIES DATE TYPE / CODE NAME / CODE REACTION SEVERITY SOURCE 03/04/2018 Drug codeine/[id number] Vomiting [place] Allergy/[id number](S 550(RXNORM) [facility] Repository 02/18/2018 Miscellaneous mushrooms Vomiting, SV [place] Allergy/746801837(S head pressure [facility] Repository ENCOUNTERS ENCOUNTERS ADMIT/DISCHARGE ACCOUNT ADMITTING ENCOUNTER LOCATION SOURCE NUMBER CLASS 03/07/2018 [id number] Ambulatory BMSBuilding:W [place] 7 [facility] Repository 03/07/2018/ [id number] Ambulatory [place] 8 8 [facility] ing:CLSP Repository 03/05/2018/ [id number] Ambulatory BMSBuilding:B [place] 8 7 [facility] Repository 03/04/2018/ [id number] Ambulatory BMSBuilding:B [place] 8 6 [facility] Repository 03/03/2018 [id number] Ambulatory Sarah [place] 8 [facility] ing:CVS Repository 03/03/2018 [id number] Ambulatory BMSBuilding:W [place] 4 [facility] Repository 02/27/2018 [id number] Ambulatory BMSBuilding:B [place] 2 [facility] Repository 02/27/2018 [id number] Ambulatory Sarah Sarah 6 [facility] ing:CVS Repository 02/18/2018/ [id number] Ambulatory BMSBuilding:B [place] 8 1 [facility] Repository 02/02/2018/ [id number] Emergency Sarah [place] 8 2 [facility] ing:ED Repository 12/10/2017 [id number] Ambulatory Sarah [place] 3 [facility] ing:OPBI Repository 07/05/2017 [id number] Ambulatory BMSBuilding:W [place] 9 [facility] Repository 07/05/2017 [id number] Ambulatory Sarah [place] 3 [facility] ing:LAB Repository 04/15/2017/ [id number] Emergency Sarah [place] 8 0 [facility] ing:ED Repository PAYERS PAYERS ENCOUNTER GUARANTOR PAYER SUBSCRIBER SOURCE 03/07/2018 BECKI K Primary BECKI K [place] [id number] Insurance:MEDICARE TROYERDOB: [facility] PART A [facility] [id number] Repository [id number]: 330 [id number] [phone] () Date:2018-03-05 03/07/2018 Secondary BECKI K Sarah Insurance:MEDICAIDPol TROYERDOB: [facility] Number: [id number] Hospital [id number] Repository Date:2018-03-05 03/07/2018 Tertiary NOT GIVENUNK [place] Insurance:SELF PAY [facility] Number: Effective Repository Date:2018-03-07 03/07/2018 BECKI K Primary BECKI K [place] [id number] Insurance:MEDICARE TROYERDOB: [facility] PART [facility] [id number] Number: Repository [address]Zvn: 330 [id number] [phone] () Date:2018-03-05 03/07/2018 Secondary BECKI K [place] Insurance:MEDICAIDPol TROYERDOB: Community icy Number: [id number] Hospital [id number] Repository Date:2018-03-05 03/07/2018 Tertiary NOT GIVENUNK [place] Insurance:SELF [facility] Number[facility] Effective Repository Date:2018-03-05 03/05/2018 BECKI K Primary BECKI K [place] [id number] Insurance:MEDICARE TROYERDOB: Community [place] PART A [id number] [place] Number[facility] Repository [address]Vuu: 330 [id number] [phone] () Date:2018-03-05 03/05/2018 Secondary BECKI K Sarah Insurance:MEDICAIDPol TROYERDOB: Community icy Number: [id number] Hospital [id number] Repository Date:2018-03-05 03/05/2018 Tertiary NOT GIVENUNK [place] Insurance:SELF PAY [facility] Number: Effective Repository Date:2018-03-05 03/04/2018 BECKI K Primary BECKI K [place] [id number] Insurance:MEDICARE TROYERDOB: Community [place] PART A [facility] [id number] [place] Number: Repository [address]Kpj: 330 [id number] [phone] () Date:2018-02-18 03/04/2018 Secondary BECKI K Sarah Insurance:MEDICAIDPol TROYERDOB: Community icy Number: [id number] Hospital [id number] Repository Date:2018-02-18 03/04/2018 Tertiary NOT GIVENUNK [place] Insurance:SELF PAY [facility] Number: Effective Repository Date:2018-03-04 03/03/2018 BECKI K Primary BECKI K [place] [id number] Insurance:MEDICARE TROYERDOB: Community [place] PART A [facility] [id number] [facility] [place] Number: Repository [address]Pmc: 330 [id number] [phone] () Date:2018-02-18 03/03/2018 Secondary BECKI K Sarah Insurance:MEDICAIDPol TROYERDOB: Community icy Number: [id number] Hospital [id number] Repository Date:2018-02-18 03/03/2018 Tertiary NOT GIVENUNK [place] Insurance:SELF PAY [facility] Number: Effective Repository Date:2018-02-18 03/03/2018 BECKI K Primary BECKI K Sarah [id number] Insurance:MEDICARE TROYERDOB: Community [place] PART A [id number] [place] Number[facility] Repository [address]Qtx: 330 [id number] [phone] () Date:2018-02-18 03/03/2018 Secondary BECKI K Sarah Insurance:MEDICAIDPol TROYERDOB: Community icy Number: [id number] Hospital [id number] Repository Date:2018-02-18 03/03/2018 Tertiary NOT GIVENUNK [place] Insurance:SELF PAY [facility] Number: Effective Repository Date:2018-03-03 02/27/2018 BECKI K Primary BECKI K [place] [id number] Insurance:MEDICARE TROYERDOB: Community [place] PART A [facility] [id number] [place] Number: Repository [address]Uvn: 330 [id number] [phone] () Date:2018-02-18 02/27/2018 Secondary BECKI K Sarah Insurance:MEDICAIDPol TROYERDOB: Community icy Number: [id number] Hospital [id number] Repository Date:2018-02-18 02/27/2018 Tertiary NOT GIVENUNK [place] Insurance:SELF PAY [facility] Number: Effective Repository Date:2018-02-27 02/27/2018 BECKI K Primary BECKI K [place] [id number] Insurance:MEDICARE TROYERDOB: Community [place] PART A [facility] [id number] Number: Repository [address]Jha: 330 [id number] [phone] () Date:2018-02-18 02/27/2018 Secondary BECKI K Sarah Insurance:MEDICAIDPol TROYERDOB: Community icy Number: [id number] Hospital [id number] Repository Date:2018-02-18 02/27/2018 Tertiary NOT GIVENUNK [place] Insurance:SELF PAY [facility] Number: Effective Repository Date:2018-02-18 02/18/2018 BECKI K Primary BECKI K [place] [id number] Insurance:MEDICARE TROYERDOB: Community [place] PART A olicy [id number] Number: Repository [address]Trq: 330 [id number] [phone] () Date:2018-02-14 02/18/2018 Secondary BECKI K Sarah Insurance:MEDICAIDPol TROYERDOB: Community icy Number: [id number] Hospital [id number] Repository Date:2018-02-14 02/18/2018 Tertiary NOT GIVENUNK [place] Insurance:SELF PAY [facility] Number: Effective Repository Date:2018-02-18 02/02/2018 BECKI K Primary BECKI K [place] [id number] Insurance:[id number] TROYERDOB: Community [place] Number: [id number] [id number] Repository [address]Rbx: 330) Date: [phone] ([place], [place] [address]HY: 02/02/2018 Secondary NOT GIVENUNK Sarah Insurance:SELF PAY [facility] Number: Effective Repository Date:2018-02-02 12/10/2017 BECKI K Primary BECKI K Sarah [id number] Insurance:MEDICARE TROYERDOB: Community [place] PART A [facility] [id number] Number: Repository [address]Rwv: 330 [id number] [phone] () Date:2017-11-19 12/10/2017 Secondary BECKI K Sarah Insurance:MEDICAIDPol TROYERDOB: Community icy Number: [id number] Hospital [id number] Repository Date:2017-11-19 12/10/2017 Tertiary NOT GIVENUNK [place] Insurance:SELF PAY [facility] Number: Effective Repository Date:2017-11-19 07/05/2017 BECKI K Primary BECKI K Sarah [id number] Insurance:MEDICARE TROYERDOB: Community [place] PART A [facility] [id number] Number: Repository [address]Xpg: 330 [id number] [phone] () Date:2017-07-05 07/05/2017 Secondary BECKI K Sarah Insurance:MEDICAIDPol TROYERDOB: Community icy Number: [id number] Hospital [id number] Repository Date:2017-07-05 07/05/2017 Tertiary NOT GIVENUNK [place] Insurance:SELF PAY [facility] Number: Effective Repository Date:2017-07-05 07/05/2017 BECKI K Primary BECKI K [place] [id number] Insurance:MEDICARE TROYERDOB: Community [place] PART A [facility] [id number] [place] Number: Repository [address]Orp: 330 [id number] [phone] () Date:2017-07-05 07/05/2017 Secondary BECKI K [place] Insurance:MEDICAIDPol TROYERDOB: Community icy Number: [id number] Hospital [id number] Repository Date:2017-07-05 07/05/2017 Tertiary NOT GIVENUNK [place] Insurance:SELF PAY [facility] Number: Effective Repository Date:2017-07-05 04/15/2017 BECKI K Primary BECKI K [place] [id number] Insurance:MEDICARE TROYERDOB: Community [place] PART A [facility] [id number] [place] Number: Repository [address]Exs: 330 [id number] [phone] () Date:2017-04-15 04/15/2017 Secondary BECKI K [place] Insurance:MEDICAIDPol TROYERDOB: Community icy Number: [id number] Hospital [id number] Repository Date:2017-04-15 04/15/2017 Tertiary NOT GIVENUNK [place] Insurance:SELF PAY [facility] Number: Effective Repository Date:2017-04-15
== END ==
PROVIDERS: Family Provider Nurse Practitioner Family; PCP Nurse Practitioner Family; Referring Provider Internal Medicine Cardiovascular Disease; Visit Provider Internal Medicine Cardiovascular Disease
DX: E78.5 Hyperlipidemia, unspecified (principal); R07.89 Other chest pain; I10 Essential (primary) hypertension
CPT/HCPCS: 93017; 93350; Q9957; A4216; C8928

== ENCOUNTER 2018-03-07 07:51 | Day surgery (SDC) | payer MEDICARE, MEDICAID, SELFPAY ==
[2018-03-04 12:03] VITALS: BMI 24.4
[2018-03-05 13:47] VITALS: BMI 24.4
--- NOTE | 2018-03-05 14:04 | RAD_ITS ---
STUDY: X-RAY CHEST REASON FOR EXAM: Female, 67 years old. Shortness of breath. Pre-heart catheter, abnormal stress test. TECHNIQUE: PA and lateral views of the chest. COMPARISON: None. FINDINGS: The lungs are clear and expanded. There is no demonstrated pleural abnormality. Normal size heart. Normal mediastinum and tanya. Normal visualized pulmonary arteries. There is minor atherosclerotic calcification of the aortic arch and descending thoracic aorta, as well as more uniform calcification of the visualized abdominal aorta. There is a mildly exaggerated dorsal kyphosis with concomitant exaggerated anteroposterior diameter of the chest. Borderline narrowed transverse diameter of the thoracic cage. Normal visualized ribs, clavicles, and shoulders. 1.8 cm densely rim calcified oblong lesion in the left soft tissues of neck may be a calcified lymph node or calcified lesion in the left lobe of the thyroid, projecting along the left posterior margin of the trachea. The airway is intact. Surgical clips of prior cholecystectomy project in the right upper quadrant abdomen. RAD/Chest PA and Lateral IMPRESSION: 1. No acute cardiopulmonary disease. 2. 1.8 cm densely rim calcified lesion along the left posterior margin of the lower cervical trachea, possibly a lymph node or lesion in the left lobe of the thyroid gland. 3. Atherosclerotic calcification of the thoracoabdominal aorta. Electronically Signed: Trenton Momin MD at 12:27 EST , Service support ,
[2018-03-05 16:01] LABS: Hematocrit 44.6 % (37-47); Hemoglobin 14.8 g/dl (12.0-15.0); Mean Corp Hgb Conc 33.2 g/gl (32-36); Mean Corpuscular Volume 96.3 fL (81-99); Mean Platelet Vol. 10.9 fl (6.2-12.0); Platelet Count 268 K/mm3 (150-450); RBC Distribution Width SD 45.1 fl (35.1-43.9); Red Blood Count 4.63 M/mm3 (4.2-5.4)
[2018-03-05 16:12] LABS: International Normalized Ratio 0.9; Prothrombin Time (Protime)PT. 12.1 SECONDS (11.7-14.9)
[2018-03-05 16:13] LABS: Partial Thromboplast Time 30.3 Seconds (24.1-36.2)
[2018-03-05 16:18] LABS: Scan Indicated on CBC? Y/N NO
[2018-03-05 16:28] LABS: Anion Gap 12 (5-15); BUN 9 mg/dL (7-18); Calcium,Total 8.7 mg/dL (8.5-10.1); Chloride 100 mmol/L (98-107); Creatinine, Serum 0.75 mg/dL (0.55-1.02); EST Glomerular Filtration Rate 82 mL/min (>60); Est Glom Filt Rate - Afr Amer 99 mL/min (>60); Glucose 95 mg/dL (74-106); Potassium 3.9 mmol/L (3.5-5.1); Sodium Level 135 mmol/L (136-145)
[2018-03-06 11:18] VITALS: BMI 24.4
--- NOTE | 2018-03-07 09:14 | CL.D_ITS ---
Patient Name: BECKI MELENDEZ Study Date: 03/07/2018 Performing: Adam Katz MD Ht: 64.96 inches 165 cm : 1950 Wt: 147.71 lbs 67 kg Age: 67 Gender: female BSA: 1.74 PROCEDURE(S) PERFORMED CV21-UQB/LHC/COR/LV CLINICAL PROFILE AND INDICATIONS Indications: New Onset Angina <= 2 months Heart Failure: None Stress/Imaging Stress Echocardiogram: Yes Result: Positive Intermediate RiskStress Echocardiogram : Positive Intermediate Risk Angina Classification Anginal Classification w/in 2 Weeks: CCS IV CAD Presentations: Unstable angina. Other: Dyspnea on exertion Comorbidities/Risk Factors: Current/Recent Smoker (< 1year) Hypertension Dyslipidemia CONCLUSIONS Non obstructive coronary arteries Normal Left Ventricular systolic function LVEF: by LV gram 65 % Right heart pressures - Normal RECOMMENDATIONS d/c plavix, pulmonary consult for COPD. ASA Indefinitely Management as per referring Sheet Metal Engineer Manual sheath removal. DESCRIPTION OF PROCEDURE The patient arrived to the procedure lab. The risks and benefits of the procedure as well as a full d escription of our services here and current unavailability of surgical backup were fully explained to the patient and/or their significant other prior to the catheterization. The Timeout was completed, verifying the correct patient and procedure. The patient's procedural site was prepped and draped in the usual fashion. Local anesthetic was given subcutaneously to right groin region with Lidocaine 2%. Using a modified Seldinger technique, arterial access was obtained via the right femoral artery, a 4 Fr sheath was inserted Venous access was obtained via the right femoral vein, a 7Fr sheath was insert ed. A 7Fr thermal dilution catheter was inserted and right heart pressures were recorded, it was then advanced to PA position for cardiac outputs. O2 saturations were then obtained. Thermal dilution car diac outputs were then recorded. Left Ventriculography was performed in GEORGES projection using a 4 Fr. Pigtail catheter. LV to AO pullback pressures were then recorded. Simultaneous pressure s were then recorded. The Thermal dilution catheter was then removed. Left Coronary Artery selective angiography was performed in multiple views using a 4 Fr. JL5 catheter. Right Coronary Artery selecti ve angiography was then performed in multiple views using a 4 Fr. 3DRC catheter.The arterial sheath w as pulled and manual compression applied until hemostasis is achieved. CORONARY ANGIOGRAPHY DOMINANCE: Right Dominant LEFT HEART ASSESSMENT Left Ventricular Ejection Fraction: by LV Gram 65 % Normal LV wall motion Normal Left Ventricular systolic function LVEDP: 16 mmHg RIGHT HEART ASSESSMENT Thermal CO: 4.91 Thermal CI: 2.82 Tabatha CO: 3.96 Tabatha CI: 2.28 PW: 14 PA: /7 17 RV: 13/04 9 RA: 10/21 4 PVR: 49 LEFT MAIN: Angiographically normal LEFT ANTERIOR DECENDING ARTERY: MID LAD: Non-obstructive CIRCUMFLEX ARTERY: Angiographically normal RIGHT CORONARY ARTERY: Angiographically normal COMPLICATIONS No Complications PROCEDURE MEDICATIONS Versed 1 mg IV Versed 1 mg IV SUMMARY OF HEMODYNAMIC DATA Time AIR REST ECG 08:23:56 RA 10/21 (4) SV 08:52:03 RV 13/04, 9 08:52:17 PW (14) PV 08:53:01 PA 13/10 (17) PA 08:53:08 LV 132/-12, 16 08:57:49 LV 131/-13, 16 08:57:57 LV 134/-12, 16 08:58:19 PW (20) 08:58:19 LV 133/-13, 15 08:58:23 PW (21) 08:58:23 LV 122/-7, 15 08:58:34 RV 31/4, 10 08:58:34 LV 138/-11, 19 08:58:40 RV 34/3, 11 08:58:40 LV 134/-12, 16 09:00:01 LVp 139/-11, 18 09:00:08 AOp 140/59 (89) 09:00:13 Type SV CO (l/m) CI (l/m/ HR Time AIR REST Thermal 73.30 4.91 2.82 67 08:23:56 Tabatha 59.10 3.96 2.28 67 08:23:56 Label % O2 Pres/Loc Time AIR REST PA 59 PA 09:07:36 AO 88 PV 09:07:39 Signed By Adam Katz MD On 03/07/2018 09:13:50 Adam Katz MD
[2018-03-07 09:21] LABS: Blood Gas Specimen Type VEN; VBG BASE EXCESS -4 mmol/L (-1.0-3.5); VBG Bicarbonate 22 mmol/L (22-26); VBG Oxygen Content 23 mmol/L (23-33); VBG PO2 31 mmHg (25-40); VBG SO2 59 % (50-70); VBG pCO2 37.4 mmHg (41-51); VBG pH 7.37 (7.32-7.42)
[2018-03-07 09:21] LABS: Base Excess -3 mmol/L (-2 to +2); Bicarbonate 21.8 mmol/L (22-26); Blood Gas Specimen Type ART; PO2 56 mmHG (75-100); SO2 88 % (95-99); Total Carbon Dioxide 23 mmol/L; pCO2 37.2 mmHg (35-45); pH 7.38 (7.35-7.45)
[2018-03-07 09:21] LABS: Blood Gas Specimen Type VEN; VBG BASE EXCESS -3 mmol/L (-1.0-3.5); VBG Bicarbonate 22 mmol/L (22-26); VBG Oxygen Content 23 mmol/L (23-33); VBG PO2 33 mmHg (25-40); VBG SO2 62 % (50-70); VBG pCO2 37.7 mmHg (41-51); VBG pH 7.38 (7.32-7.42)
== END 2018-03-07 13:46 | disposition home or self-care (01) ==
LOC: CLSP 07:51
PROVIDERS: Referring Provider Internal Medicine Cardiovascular Disease; Visit Provider Internal Medicine Cardiovascular Disease
DX: R07.89 Other chest pain (principal); E78.5 Hyperlipidemia, unspecified; I10 Essential (primary) hypertension; J44.9 Chronic obstructive pulmonary disease, unspecified; Z79.82 Long term (current) use of aspirin; Z79.899 Other long term (current) drug therapy; F17.210 Nicotine dependence, cigarettes, uncomplicated
CPT/HCPCS: 36415; 71046; 80048; 82803; 85027; 85610; 85730; 93460; 99152; 99153; J7040; Q9967; C1751; C1769; C1894

== ENCOUNTER → 2018-12-31 11:21 | Outpatient (CLI) | payer MEDICARE, MEDICAID, SELFPAY ==
[2018-09-25 12:28] VITALS: BMI 23.8
--- NOTE | 2018-12-31 11:23 | BI_ITS ---
MAMMOGRAPHY - BILATERAL SCREENING REASON FOR EXAM: Female, 68 years old. Routine annual screening examination. PERTINENT HISTORY: Daughter with breast cancer. Aunt with breast cancer. Remote right breast biopsy. TECHNIQUE: Digital bilateral breast liz (3D mammographic acquisition) in the CC and MLO projections. 2-D mediolateral oblique (MLO) and craniocaudad (CC) views of both breasts were obtained. CAD: Full Field Digital Mammography with Computer Added Detection was performed. COMPARISON: Comparison is made with prior study dated December 10, 2017 and August 04, 2015. FINDINGS: Breast Composition: There are scattered areas of fibroglandular density. There are no dominant masses or suspicious calcifications. Stable asymmetry of breast tissue where more breast tissue is seen in the upper outer quadrant of the left breast as compared to the right side. A tissue clip marker is once again seen in the upper lateral aspect of the right breast. No other significant abnormalities are identified. There has been no significant change since the prior study. BI/SCREEN MAMM (CAD) W/LIZ BILAT IMPRESSION: Stable bilateral screening mammogram. Yearly follow-up mammogram recommended. (A) ASSESSMENT CATEGORY: BIRADS Category 2: Benign. A letter regarding these results will be sent to the patient by the facility within 30 days. Approximately 10% of breast cancers are not detected by mammography. A normal mammogram should not delay biopsy of a clinically suspicious abnormality. [id number] Electronically Signed: Eyal Roa, at 13:06 EDT , Service support ,
== END ==
PROVIDERS: Referring Provider Nurse Practitioner Family; Visit Provider Nurse Practitioner Family
DX: Z12.31 Encounter for screening mammogram for malignant neoplasm of breast (principal)
CPT/HCPCS: 77063; 77067

== ENCOUNTER → 2019-03-06 13:16 | Outpatient (CLI) | payer MEDICARE, MEDICAID, SELFPAY ==
[2018-09-25 12:28] VITALS: BMI 23.8
--- NOTE | 2019-03-06 13:21 | CT_ITS ---
STUDY: LOW DOSE CT LUNG CANCER SCREENING REASON FOR EXAM: Female, 68 years old. Long history of smoking. Screening for lung cancer. RADIATION DOSAGE (If Supplied By Facility): CTDIvol = ( 3.02 ) mGy, DLP = ( 117.77 ) mGycm TECHNIQUE: No contrast was administered. Low dose technique was utilized (average mAS-38 and kVp 120). 1.25 mm axial source images with a slice interval of 1.25-mm were reconstructed in lung windows. 2.5 mm axial source images with a slice interval of 2.5-mm were reconstructed in lung windows. 5.0 mm axial source images with a slice interval of 5.0-mm were reconstructed in soft tissue windows. Nodule measured using lung windows on PACS and/or independent workstation with automated measurement of minimum and maximum diameter. Nodule measurement reported as average diameter rounded to the nearest whole number. Growth is defined as an increase ins size of greater than 1.5 mm. COMPARISON: None. NODULES: There is hyperinflation of the lungs consistent with chronic obstructive lung disease (COPD). There is no demonstrated pleural abnormality. Normal heart and pericardium. Normal mediastinum. Normal hilar regions. Normal unenhanced pulmonary arteries. Normal aorta arch and descending thoracic aorta. Normal osseous structures. There is no demonstrated abnormality of the visualized upper abdomen. CT/Low Dose CT Lung Screening IMPRESSION: Lung-RADS category 2. COPD. Benign findings. Recommendation: Routine screening CT scan in one year. IMPORTANT NOTES FOR USE: ACR Lung-RADS Version 1.0 Assessment Categories Release Date: July 13, 2013 Category: Coded 0-4 bases on nodule(s) with highest degree of suspicion. Negative screen is defined as categories 1 and 2; a positive screen is defined as categories 3 and 4. Category 3 and 4A nodules that are unchanged on interval CT should be coded as category 2, and individuals returned to screening in 12 months. Category 4X: Category 3 or 4 nodules with additional imaging findings that increase the suspicion of lung cancer, such as spiculation, GGN that doubles in size in 1 year, enlarged lymph notes, etc. Category Modifiers: S (significant finding unrelated to lung cancer) and C (prior history of treated lung cancer) may be added to the 0-4 Lung-RADS Electronically Signed: Eugenio Ceballos, at 7:33 EST Tel , Service support ,
== END ==
DX: F17.210 Nicotine dependence, cigarettes, uncomplicated (principal); J44.9 Chronic obstructive pulmonary disease, unspecified
CPT/HCPCS: G0297

== ENCOUNTER 2019-05-11 07:27 | Day surgery (SDC) | payer MEDICARE, MEDICAID, SELFPAY ==
[2019-04-28 08:16] VITALS: BMI 22.1
--- NOTE | 2019-04-28 08:23 | HP_ITS ---
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 Is patient in pain?: No Allergies codeine Adverse Reaction (Intermediate, Verified 04/28/19 08:13) vomiting mushrooms Adverse Reaction (Severe, Uncoded 04/28/19 08:13) Vomiting, head pressure Medications Albuterol Inhaler [Ventolin Hfa (SP)] 1 - 2 puff INHALATION Q4H PRN PRN 04/15/17 [History Confirmed 04/28/19] Budesonide/Formoterol Fumarate [Symbicort 160-4.5 Mcg Inhaler] 12 gm IH BID 04/15/17 [History Confirmed 04/28/19] Cholecalciferol (Vitamin D3) [Vitamin D] 50,000 unit PO ROQUE 04/15/17 [History Confirmed 04/28/19] latanoprost (PF) 0.005 % eye drops 1 drp OPHTHALMIC QPM 02/17/18 [History Confirmed 04/28/19] fluoxetine 40 mg capsule 40 mg PO DAILY 09/08/18 [History Confirmed 04/28/19] atenolol 25 mg tablet 25 mg PO BID #180 tab 03/03/19 [Rx Confirmed 04/28/19] atorvastatin 20 mg tablet 20 mg PO QHS #90 tab 03/12/19 [Rx Confirmed 04/28/19] losartan 50 mg tablet 50 mg PO DAILY #90 tab 03/12/19 [Rx Confirmed 04/28/19] PFSH Medical History history of surgery on fingers (Chronic) Palpitations (Acute) Dyspnea on exertion (Acute) Abnormal stress echo (Acute) COPD (chronic obstructive pulmonary disease) (Chronic) Hypertension (Chronic) Hyperlipidemia (Chronic) Chest discomfort (Acute) Dizziness (Acute) Surgical History Hx of colonoscopy (Acute) History of hysterectomy (Chronic) History of cervical spinal surgery (Chronic) History of appendectomy (Chronic) History of cholecystectomy (Chronic) History of shoulder surgery (Chronic) History of left knee surgery (Chronic) History of right and left heart catheterization (Chronic 03/07/18) Family History Father , Age 93 S/P CABG x 1 CAD (coronary artery disease) Mother Pacemaker History of mechanical aortic valve replacement Hypertension Diabetes Hyperlipidemia Cancer Skin Social History (Updated 04/28/19 @ 08:23 by Adam Thomas MD) Smoking Status: Current every day smoker second hand exposure: No quit status: quit date established alcohol intake: current alcohol intake frequency: holidays/special occasions only substance use type: does not use caffeine: Yes Type: coffee Number of servings: 2 what type of physical activity do you participate in: none frequency: does not exercise HPI HPI HPI: BECKI MELENDEZ, is a 69 F who presents to the office today for HPI HPI Surgical H&P: Yes HPI: BECKI MELENDEZ, is a 69 F who presents to the office today for Evaluation for endoscopy. Patient had about a 4-week history of chronic diarrhea with some significant weight loss. In addition she was complaining of some fatigue this is since subsided and she actually has some constipation now. Her last colonoscopy was more than 40 years ago. And she has never had another one since. ROS General General: Yes weight change and fatigue; no appetite, colon cancer, breast cancer or weakness HEENT HEENT: No difficulty swallowing, eye injury, eye surgery, swollen glands or hoarseness Endo Endocrine: No thyroid disease, diabetes mellitus, thyroid cancer, Hair loss, heat intolerance or cold intolerance Skin Skin: No rash or changing moles Musc Musculoskeletal: No back problems, arthritis, rheumatoid arthritis, gout or joint pain Cardio Cardiovascular: Yes high blood pressure; no murmur, pacemaker, heart disease, atrial fibrillation, heart attack, heart stent, palpitations, shortness of breat with exertion or chest pain Psych Psychiatric: No depression, anxiety or hearing voices Resp Respiratory: No shortness of breath, No sleep apnea, No cough, Yes COPD, No asthma, No emphysema, No wheezing Gastro Gastrointestinal: No abdominal pain, No nausea or vomiting, Yes diarrhea, Yes constipation, No blood in stool, No acid reflux, No hemorrhoids, No ulcers, No gallbladder problem, No black,tarry stools Isaiah Hematologic: No blood thinners, No blood disorders, No bleeding, No anemia, No blood clots Neuro Neurologic: No weakness Exam Const General: no acute distress, well developed, well hydrated Orientation: oriented to person, oriented to place, oriented to time [facility] Head: normocephalic, atraumatic Ears: external ears normal Mouth: moist mucous membranes Eyes Sclera: sclerae normal Pupils: normal by confrontation Neck Neck: no lymphadenopathy noted Neck mass: No Thyroid: thyroid normal, symmetrical Chest Chest palpation & inspection: normal inspection of the chest Resp Effort & Inspection: normal respiratory effort Auscultation: clear to auscultation bilaterally Percussion: percussion normal Cardio Rate: regular rate Rhythm: regular rhythm Heart Sounds: no murmurs GI Palpation: soft, no hepatosplenomegaly, no masses, nontender Rectal Exam: other Other: Rectal exam deferred. Extrem General: normal to inspection, no clubbing, cyanosis or edema Assessment & Plan Problems 1. Diarrhea, unspecified type R19.7 Plan I have discussed the above with the patient. I have offered the patient colonoscopy for evaluation. I have explained the risks/benefits of the procedure and described the procedure. I have discussed the risks with the patient, including but not limited to: infection, bleeding, perforation of the GI tract requiring emergency surgery, inability to complete the procedure, injury to any internal organs, complications of anesthesia, etc. - the patient understands and agrees to proceed. I have answered all the patient's questions to the patient's satisfaction and the patient has no further questions. The patient has been given instructions for the colon cleansing preparation. We will be doing random colon biopsies. Coding Level of Care Code Off vis,new,level 3 Diagnoses Diarrhea, unspecified type R19.7 ??Diarrhea type: unspecified type 04/28/19 0823 <Electronically signed by Adam henson MD> Date _ [facility]
[2019-05-11 07:49] VITALS: BP 179/101; PULSE 69; RESP 16; TEMP 36.2; O2SAT 99; BMI 22.8
[2019-05-11] MEDS: Lactated Ringers 1,000 ML 100 ML IV (07:56)
--- NOTE | 2019-05-11 08:26 | HP.PCM_ITS ---
History and Physical Date of Admission: 05/11/19 [place] [facility] [address] [place] [address] History and Physical 04/28/19 0823 MR#: [id number] Acct: [id number] Name: BECKI MELENDEZ Rep #:[id number] : 1950 69 From: Adam Thomas MD PCP: [facility] Statu s:PRE SDC Location: EN Intake Vital Signs 04/28/19 BMI 22.1 04/28/19 BP 205/82 H 04/28/19 Blood Pressure Location Lt brachial 04/28/19 Position Sitting 04/28/19 Height 5 ft 5 in 04/28/19 Weight: 130 lb 04/28/19 BMI 21.6 04/28/19 BP 215/97 H 04/28/19 Blood Pressure Location Rt brachial 04/28/19 Position Sitting 04/28/19 Respiration 16 04/28/19 Pulse 71 04/28/19 Pulse Source Monitor 04/28/19 Temp 98.5 F 04/28/19 Temp Source Oral 04/28/19 Pulse Oximetry (%) 96 04/28/19 Oxygen Delivery Method room air Intake Visit Reasons: Unexplained Weight Loss/ Colonoscopy Chief Complaint: chest pressure Asset Management Analyst Required: No Is patient in pain?: No Allergies codeine Adverse Reaction (Intermediate, Verified 04/28/19 08:13) vomiting mushrooms Adverse Reaction (Severe, Uncoded 04/28/19 08:13) Vomiting, head pressure Medications Albuterol Inhaler [Ventolin Hfa (SP)] 1 - 2 puff INHALATION Q4H PRN PRN 04/15/17 [History Confirmed 04/28/19] Budesonide/Formoterol Fumarate [Symbicort 160-4.5 Mcg Inhaler] 12 gm IH BID 04/15/17 [History Confirmed 04/28/19] Cholecalciferol (Vitamin D3) [Vitamin D] 50,000 unit PO ROQUE 04/15/17 [History Confirmed 04/28/19] latanoprost (PF) 0.005 % eye drops 1 drp OPHTHALMIC QPM 02/17/18 [History Confirmed 04/28/19] fluoxetine 40 mg capsule 40 mg PO DAILY 09/08/18 [History Confirmed 04/28/19] atenolol 25 mg tablet 25 mg PO BID #180 tab 03/03/19 [Rx Confirmed 04/28/19] atorvastatin 20 mg tablet 20 mg PO QHS #90 tab 03/12/19 [Rx Confirmed 04/28/19] losartan 50 mg tablet 50 mg PO DAILY #90 tab 03/12/19 [Rx Confirmed 04/28/19] PFSH Medical History history of surgery on fingers (Chronic) Palpitations (Acute) Dyspnea on exertion (Acute) Abnormal stress echo (Acute) COPD (chronic obstructive pulmonary disease) (Chronic) Hypertension (Chronic) Hyperlipidemia (Chronic) Chest discomfort (Acute) Dizziness (Acute) Surgical History Hx of colonoscopy (Acute) History of hysterectomy (Chronic) History of cervical spinal surgery (Chronic) History of appendectomy (Chronic) History of cholecystectomy (Chronic) History of shoulder surgery (Chronic) History of left knee surgery (Chronic) History of right and left heart catheterization (Chronic 03/07/18) Family History Father , Age 93 S/P CABG x 1 CAD (coronary artery disease) Mother Pacemaker History of mechanical aortic valve replacement Hypertension Diabetes Hyperlipidemia Cancer Skin Social History (Updated 04/28/19 @ 08:23 by Adam Thomas MD) Smoking Status: Current every day smoker second hand exposure: No quit status: quit date established alcohol intake: current alcohol intake frequency: holidays/special occasions only substance use type: does not use caffeine: Yes Type: coffee Number of servings: 2 what type of physical activity do you participate in: none frequency: does not exercise HPI HPI HPI: BECKI MELENDEZ, is a 69 F who presents to the office today for HPI HPI Surgical H&P: Yes HPI: BECKI MELENDEZ, is a 69 F who presents to the office today for Evaluation for endoscopy. Patient had about a 4-week history of chronic diarrhea with some significant weight loss. In addition she was complaining of some fatigue this is since subsided and she actually has some constipation now. Her last colonoscopy was more than 40 years ago. And she has never had another one since. ROS General General: Yes weight change and fatigue; no appetite, colon cancer, breast cancer or weakness HEENT HEENT: No difficulty swallowing, eye injury, eye surgery, swollen glands or hoarseness Endo Endocrine: No thyroid disease, diabetes mellitus, thyroid cancer, Hair loss, heat intolerance or cold intolerance Skin Skin: No rash or changing moles Musc Musculoskeletal: No back problems, arthritis, rheumatoid arthritis, gout or joint pain Cardio Cardiovascular: Yes high blood pressure; no murmur, pacemaker, heart disease, atrial fibrillation, heart attack, heart stent, palpitations, shortness of breat with exertion or chest pain Psych Psychiatric: No depression, anxiety or hearing voices Resp Respiratory: No shortness of breath, No sleep apnea, No cough, Yes COPD, No asthma, No emphysema, No wheezing Gastro Gastrointestinal: No abdominal pain, No nausea or vomiting, Yes diarrhea, Yes constipation, No blood in stool, No acid reflux, No hemorrhoids, No ulcers, No gallbladder problem, No black,tarry stools Isaiah Hematologic: No blood thinners, No blood disorders, No bleeding, No anemia, No blood clots Neuro Neurologic: No weakness Exam Const General: no acute distress, well developed, well hydrated Orientation: oriented to person, oriented to place, oriented to time [facility] Head: normocephalic, atraumatic Ears: external ears normal Mouth: moist mucous membranes Eyes Sclera: sclerae normal Pupils: normal by confrontation Neck Neck: no lymphadenopathy noted Neck mass: No Thyroid: thyroid normal, symmetrical Chest Chest palpation & inspection: normal inspection of the chest Resp Effort & Inspection: normal respiratory effort Auscultation: clear to auscultation bilaterally Percussion: percussion normal Cardio Rate: regular rate Rhythm: regular rhythm Heart Sounds: no murmurs GI Palpation: soft, no hepatosplenomegaly, no masses, nontender Rectal Exam: other Other: Rectal exam deferred. Extrem General: normal to inspection, no clubbing, cyanosis or edema Assessment & Plan Problems 1. Diarrhea, unspecified type R19.7 Plan I have discussed the above with the patient. I have offered the patient colonoscopy for evaluation. I have explained the risks/benefits of the procedure and described the procedure. I have discussed the risks with the patient, including but not limited to: infection, bleeding, perforation of the GI tract requiring emergency surgery, inability to complete the procedure, injury to any internal o rgans, complications of anesthesia, etc. - the patient understands and agrees to proceed. I have answered all the patient's questions to the patient's satisfaction and the patient has no further questions. The patient has been given instructions for the colon cleansing preparation. We will be doing random colon biopsies. Coding Level of Care Code Off vis,new,level 3 Diagnoses Diarrhea, unspecified type R19.7 ??Diarrhea type: unspecified type 04/28/19822 <Electronically signed by Adam henson MD> Date _ Adam Thomas MD 04/30/19 1036 <Electronically signed by Adam henson MD> Date: Time: __ Adam Thomas MD CC: Adam Thomas MD; [facility] ~ Date Dictated: 04/28/19822 Date Transcribed: 04/28/19 1052 Lens Block Gauger: NR Signed I have re-examined the patient. There are no clinical changes since date of exam.
--- NOTE | 2019-05-11 08:30 | COLBX_PTH ---
PATIENT: BECKI MELENDEZ LOC: EN U#:[id number] AGE/SX: 69/F ROOM: RE05/11/[address]: Dr. Adam Thomas MD : 1950 BED: DIS: 05/11/2019 SPEC #: [id number] RECD: 05/11/19 09:46 STATUS: YENNY KACIE #: [id number] LICHA: 05/11/19 08:[address]: Adam Thomas DEPT: SURGICAL PATHOLOGY RECD BY: Ronen Espinoza ENTERED: 05/11/19 10:50 SP TYPE: COLON BX OTHR DR: [facility] Tissues: COLON BIOPSY Procedures: Surgery Specimen Level IV HEADER OPERATION: Colonoscopy (MAC) PRE-OP DIAGNOSIS: Diarrhea TISSUE SUBMITTED: Random colon biopsies MICROSCOPIC DIAGNOSIS Colon, random biopsy: Fragments of colonic mucosa, no pathologic diagnosis. SJ:padmini 05/12/19 MICROSCOPIC DESCRIPTION Slides are reviewed. GROSS DESCRIPTION Received in fixative is one container labeled with the patient's name and designated random colon biopsy. The specimen consists of multiple irregular fragments of light gamez soft tissue that in aggregate measure 1.5 x 0.6 x 0.1 cm. The specimen is totally submitted in one cassette. / AM:padmini 05/11/19 TC:4 CPT: 35111
[2019-05-11 09:05] VITALS: BP 130/73; BP 179/101; PULSE 68; RESP 18; TEMP 36.9; O2SAT 98
--- NOTE | 2019-05-11 09:08 | OP.CCLET_ITS ---
[facility] This procedure was performed on Saturday, May 11, 2019. My impressions and recommendations are as follows: Impressions : - Preparation of the colon was poor. - Stool in the entire examined colon. Biopsied. - The entire examined colon is normal. Recommendations : - Repeat colonoscopy in 5 years for screening purposes. - Return to my office in 1 week. - Continue present medications. My findings are described in the full procedure note, which is enclosed. If I can be of further assistance, please feel free to contact me at Doctor phone number(s): , Fax: [phone], Work: . Sincerely, MD Adam Escamilla MD 05/11/2019 9:07:45 AM This report has been signed electronically.
--- NOTE | 2019-05-11 09:08 | OP.COLON_ITS ---
Patient Name: Jazmyn Dickey Procedure Date: 05/11/2019 8:34 AM Date of : 1950 Age: 69 Procedure: Colonoscopy Indications: Clinically significant diarrhea of unexplained origin Providers: Adam Thomas MD Referring MD: Adam Thomas MD Medicines: See the Anesthesia note for documentation of the administered medications Patient Profile: This is a 69 year old female. Refer to note in patient chart for documentation of history and physical. Last Colonoscopy: more than 10 years ago. Complications: No immediate complications. Procedure: Pre-Anesthesia Assessment: - Prior to the procedure, a History and Physical was performed, and patient medications and allergies were reviewed. The patient's tolerance of previous anesthesia was also reviewed. The risks and benefits of the procedure and the sedation options and risks were discussed with the patient. All questions were answered, and informed consent was obtained. Prior Anticoagulants: The patient has taken no previous anticoagulant or antiplatelet agents. ASA Grade Assessment: II - A patient with mild systemic disease. After reviewing the risks and benefits, the patient was deemed in satisfactory condition to undergo the procedure. After I obtained informed consent, the scope was passed under direct vision. Throughout the procedure, the patient's blood pressure, pulse, and oxygen saturations were monitored continuously. The Colonoscope was introduced through the anus and advanced to the cecum, identified by appendiceal orifice and ileocecal valve. The colonoscopy was performed without difficulty. The patient tolerated the procedure well. The quality of the bowel preparation was poor. Scope In: 8:46:34 AM Scope Withdrawal Time 0 hours 6 minutes 6 seconds Scope Out: 9:01:11 AM Total Procedure Duration Time 0 hours 14 minutes 37 seconds Findings: Copious quantities of semi-liquid stool was found in the entire colon, making visualization difficult. Biopsies for histology were taken with a cold forceps from the entire colon for evaluation of microscopic colitis. The entire examined colon appeared normal. Non-bleeding external and internal hemorrhoids were found during retroflexion. Impression: - Preparation of the colon was poor. - Stool in the entire examined colon. Biopsied. - The entire examined colon is normal. Recommendation: - Repeat colonoscopy in 5 years for screening purposes. - Return to my office in 1 week. - Continue present medications. Procedure Code(s): --- Professional --- 59575, Colonoscopy, flexible; with biopsy, single or multiple Diagnosis Code(s): --- Professional --- R19.7, Diarrhea, unspecified CPT copyright 2017 [employer]. All rights reserved. The codes documented in this report are preliminary and upon analytical research chemist review may be revised to meet current compliance requirements. MD Adam Escamilla MD 05/11/2019 9:07:45 AM This report has been signed electronically. Number of Addenda: 0 Note Initiated On: 05/11/2019 8:34 AM
[2019-05-11 09:10] VITALS: BP 149/75; BP 179/101; PULSE 69; RESP 18; O2SAT 100
[2019-05-11 09:15] VITALS: BP 164/77; BP 179/101; PULSE 68; RESP 18; O2SAT 95
[2019-05-11 09:21] VITALS: BP 163/84; BP 179/101; PULSE 66; RESP 18; TEMP 37; O2SAT 99
[2019-05-11 09:36] VITALS: BP 179/101
== END 2019-05-11 09:51 | disposition home or self-care (01) ==
LOC: EN 07:28 → AC 07:30
PROVIDERS: Referring Provider Surgery; Visit Provider Surgery
PROC: 0DJD8ZZ Inspection of Lower Intestinal Tract, Via Natural or Artificial Opening Endoscopic (ICD-10-PCS; CPT 45378; principal; 2019-05-11 08:25)
DX: R19.7 Diarrhea, unspecified (principal); K64.4 Residual hemorrhoidal skin tags; K64.8 Other hemorrhoids; I10 Essential (primary) hypertension; J44.9 Chronic obstructive pulmonary disease, unspecified; F32.9 Major depressive disorder, single episode, unspecified; E78.00 Pure hypercholesterolemia, unspecified; Z78.0 Asymptomatic menopausal state; Z90.49 Acquired absence of other specified parts of digestive tract; Z79.899 Other long term (current) drug therapy; F17.200 Nicotine dependence, unspecified, uncomplicated
CPT/HCPCS: 45380; 88305; J7120; J2405

== ENCOUNTER 2019-06-09 17:20 | Emergency (ER) | payer MEDICARE, SELFPAY ==
[2019-06-09 17:20] VITALS: BP 139/79; PULSE 75; RESP 18; O2SAT 96
[2019-06-09 17:21] VITALS: BP 159/128; PULSE 78; RESP 18; TEMP 36.8; O2SAT 99; BMI 22.6
--- NOTE | 2019-06-09 17:38 | EKG12_ITS ---
Test Reason : CP Blood Pressure : / mmHG Vent. Rate : 073 BPM Atrial Rate : 073 BPM P-R Int : 156 ms QRS Dur : 078 ms QT Int : 386 ms P-R-T Axes : 066 034 058 degrees QTc Int : 425 ms Normal sinus rhythm Normal ECG Confirmed by DEMETRIO HUGHES, BAKARI ([id number]), video editor DEON GUNDERSON ([id number]) on 06/11/2019 1:35:26 PM Referred By: DON Confirmed By:BAKARI ATKINSON MD
--- NOTE | 2019-06-09 17:40 | RAD_ITS ---
STUDY: X-RAY CHEST REASON FOR EXAM: Female, 69 years old. CHEST PAIN -- HX COPD TECHNIQUE: Single AP portable view of the chest. COMPARISON: 03/05/2018. FINDINGS: The lungs are clear and expanded. There is no demonstrated pleural abnormality. Normal size heart. Normal mediastinum and tanya. Normal visualized pulmonary arteries. Normal visualized aortic arch and descending thoracic aorta. Normal visualized thoracic spine. Normal visualized ribs, clavicles, and shoulders. There is no demonstrated abnormality of the visualized soft tissue structures of the upper abdomen. RAD/Chest 1 View (Portable) IMPRESSION: Normal x-ray examination of the chest. Electronically Signed: Alexx Yuen MD at 18:05 EDT , Service support ,
[2019-06-09] MEDS: 0.9% Normal Saline 1,000 ML 150 ML IV (17:42)
--- NOTE | 2019-06-09 17:43 | ED.DCSUM_ITS ---
- ER Visit Summary Date of Service: 06/09/19 Chief Complaint: [Chest pain] History of Present Illness: The patient is a 69 F [presents to the emergency department chest pain that started initially last evening. Patient states that she thought that last night's chest discomfort may have been indigestion because she ate really fast and she had pain that lasted about 5 to 10 minutes across her chest. She described it as a pressure or tightness. Today while driving patient once again developed sharp pain in her center of her chest and this pressure and heaviness and tightness. She states that the pain, radiates into her left breast. She felt somewhat short of breath with it. She denied any nausea or vomiting or diaphoresis. She denies recent travel or surgery. She has no history of PE or DVT. Patient has history of COPD, hypertension, high cholesterol, history of irregular heartbeat.] Physical Examination: [HEENT-PERRLA, EOMI. Cranial nerves II through XII grossly intact. TMs clear. Mucous membranes moist. No adenopathy. Cardiovascular-regular rate and rhythm without murmur or ectopy Lungs-clear to auscultation, chest wall stable without crepitus or subcu emphysema Abdomen-normoactive bowel sounds, soft, nontender, no rebound or rigidity, no peritoneal signs. Extremities-intact ?4, normal range of motion, normal pulses, atraumatic] Test Results: [EKG obtained on arrival shows sinus rhythm with a ventricular rate of 73 bpm with no acute ST segment changes. When compared with prior EKG from July 05, 2017 no significant changes noted.] CBC with differential obtained was normal. Chemistries were normal. D-dimer was 0.4. Troponin was less than 0.015. Chest ray showed nothing acute. Emergency Department Course and Treatment: [Received aspirin in the emergency department and she was given sublingual nitroglycerin which resolved her pain. I recommended admission for further work-up and evaluation of her chest pain and she is refusing. Patient also spoke with the admitting physician Dr. Shana Garcia who also recommended admission for further work-up and patient is again refusing and believes she had a panic attack. Patient states that she went to the bank to withdraw a little bit of money for gas and found that she was overdrawn. Patient did have a heart catheterization in 2018 that showed nonocclusive coronary artery disease of the LAD and normal coronaries otherwise. Patient understands that her enzymes may not elevate for hours from the time that her pain started and that we still recommended admission or at least a delta troponin and she is refusing. Patient is competent and has capacity to refuse.] Treatment Plan: [Patient recommended to have follow-up with her plastic sheeting cutter as soon as possible. Patient advised to return if worsening pain, increasing shortness of breath, or condition should worsen anyway.] Disposition: [Signed out AGAINST MEDICAL ADVICE] Impression: [Chest pain-etiology uncertain Signed out AGAINST MEDICAL ADVICE] This note was generated with Mult[employer] software. It may contain incorrect words, spelling, and punctuation that were not noted in review of the chart prior to signing ED Disposition - Plan for ED Patient: Referrals: Chely Blanton [Primary Care Provider] -
[2019-06-09] MEDS: Aspirin 81 MG TAB.CHEW 324 MG PO (17:45)
[2019-06-09 17:51] LABS: Absolute Lymphocyte Count 2.73 X10^3/uL (0.83-4.51); Absolute Neutrophil Count 4.3 X10^3/uL (2.0-7.7); Basophil# 0.06 X10^3/uL; Basophil% 0.8 % (0-1); Eosinophil# 0.08 X10^3/uL; Hematocrit 46.2 % (37-47); Hemoglobin 15.5 g/dL (12.0-15.0); Lymphocyte # 2.73 X10^3/ul (4.0); Lymphocyte % 34.4 % (19-41); Mean Corp Hgb Conc 33.5 g/dL (32-36); Mean Corpuscular Hgb 31.5 pg (27.0-32.0); Mean Corpuscular Volume 93.9 fL (81-99); Mean Platelet Vol. 10.3 fl (6.2-12.0); Monocyte# 0.74 X10^3/uL; Monocyte% 9.3 % (0-10); NRBC Flagged by Analyzer 0 % (0-5); Neutrophil # 4.32 X10^3/uL (2.7-7.7); Neutrophil % 54.4 % (47-70); Platelet Count 288 K/mm3 (150-450); RBC Distribution Width CV 12.3 % (11.6-14.6); RBC Distribution Width SD 43.1 fl (35.1-43.9); Red Blood Count 4.92 M/mm3 (4.2-5.4); White Blood Count 7.9 K/mm3 (4.4-11.0)
[2019-06-09 17:53] VITALS: BP 135/76; PULSE 71
[2019-06-09] MEDS: Nitroglycerin SL (ED/IMG/CATH) 0.4 MG TABLET SUBLINGUAL (17:53)
[2019-06-09 18:00] LABS: Anion Gap 9 (5-15); BUN 9 mg/dL (7-18); Chloride 104 mmol/L (98-107); EST Glomerular Filtration Rate 67 mL/min (>60); Est Glom Filt Rate - Afr Amer 81 mL/min (>60); Estimated Creatinine Clearance 54.58 ml/min; Glucose 98 mg/dL (74-106); Potassium 4.1 mmol/L (3.5-5.1); Sodium Level 138 mmol/L (136-145)
--- NOTE | 2019-06-09 18:21 | DCINST.ED_ITS ---
ED Disposition - Plan for ED Patient: Instructions: CHEST PAIN, Uncertain Cause Referrals: [facility] Andre,Chely Song [Primary Care Provider] - Adam Katz MD [STAFF PHYSICIAN] - As soon as possible
[2019-06-09 18:45] VITALS: BP 117/77; PULSE 71; RESP 18; O2SAT 97
== END 2019-06-09 18:47 | disposition home or self-care (01) ==
LOC: ED 18:15
PROVIDERS: Emergency Provider Emergency Medicine
DX: R07.89 Other chest pain (principal); R06.00 Dyspnea, unspecified; Z53.21 Procedure and treatment not carried out due to patient leaving prior to being seen by health care provider; J44.9 Chronic obstructive pulmonary disease, unspecified; I10 Essential (primary) hypertension; E78.00 Pure hypercholesterolemia, unspecified; Z79.899 Other long term (current) drug therapy; Z72.0 Tobacco use
CPT/HCPCS: 71045; 80048; 84484; 85025; 85379; 93005; 96360; 99285; J7030; A4216

== ENCOUNTER → 2019-11-17 07:15 | Outpatient (CLI) | payer MEDICARE, MEDICAID, SELFPAY ==
[2019-11-05 10:22] VITALS: BMI 20.7
[2019-11-17 08:36] LABS: Absolute Lymphocyte Count 3.63 X10^3/uL (0.83-4.51); Absolute Neutrophil Count 2.9 X10^3/uL (2.0-7.7); Basophil# 0.08 X10^3/uL; Basophil% 1.1 % (0-1); Eosinophil# 0.15 X10^3/uL; Hematocrit 47.9 % (37-47); Hemoglobin 15.9 g/dL (12.0-15.0); Lymphocyte # 3.63 X10^3/ul (4.0); Lymphocyte % 48.7 % (19-41); Mean Corp Hgb Conc 33.2 g/dL (32-36); Mean Corpuscular Hgb 32.1 pg (27.0-32.0); Mean Corpuscular Volume 96.8 fL (81-99); Mean Platelet Vol. 10.3 fl (6.2-12.0); Monocyte# 0.73 X10^3/uL; Monocyte% 9.8 % (0-10); NRBC Flagged by Analyzer 0 % (0-5); Neutrophil # 2.85 X10^3/uL (2.7-7.7); Neutrophil % 38.1 % (47-70); Platelet Count 306 K/mm3 (150-450); RBC Distribution Width SD 42.9 fl (35.1-43.9); Red Blood Count 4.95 M/mm3 (4.2-5.4); White Blood Count 7.5 K/mm3 (4.4-11.0)
[2019-11-17 09:24] LABS: ALB/GLOB Ratio 1.1 RATIO (0.9-2.4); AST(SGOT) 16 U/L (15-37); Alanine Aminotransfer ALT/SGPT 22 U/L (13-56); Albumin, Serum 3.9 g/dL (3.2-5.0); Alkaline Phosphatase 65 U/L (45-117); Anion Gap 4 (5-15); BUN 8 mg/dL (7-18); BUN/Creat Ratio 11.1 RATIO (10-20); Chloride 103 mmol/L (98-107); Cholesterol 197 mg/dL (200); Creatinine, Serum 0.72 mg/dL (0.55-1.02); EST Glomerular Filtration Rate 85 mL/min (>60); Est Glom Filt Rate - Afr Amer 103 mL/min (>60); Globulin 3.4 g/dL (2.2-4.2); Glucose 89 mg/dL (74-106); High Density Lipoprotein 84 mg/dL; Protein, Total 7.3 g/dL (6.4-8.2); Sodium Level 135 mmol/L (136-145); Triglycerides 83 mg/dL; Very Low Density Lipoprotein 17 mg/dL (5-40)
== END ==
PROVIDERS: Nurse Practitioner Family
DX: I10 Essential (primary) hypertension (principal); E78.2 Mixed hyperlipidemia; E87.5 Hyperkalemia
CPT/HCPCS: 36415; 80053; 80061; 85025

== ENCOUNTER → 2020-02-15 08:15 | Outpatient (CLI) | payer MEDICARE, MEDICAID, SELFPAY ==
[2019-11-05 10:22] VITALS: BMI 20.7
[2020-02-15 08:49] LABS: Absolute Lymphocyte Count 2.59 X10^3/uL (0.83-4.51); Absolute Neutrophil Count 3.4 X10^3/uL (2.0-7.7); Basophil# 0.07 X10^3/uL; Eosinophil# 0.21 X10^3/uL; Eosinophils% 2.9 % (0-5); Hematocrit 49.1 % (37-47); Hemoglobin 16.5 g/dL (12.0-15.0); Lymphocyte # 2.59 X10^3/ul (4.0); Lymphocyte % 35.8 % (19-41); Mean Corp Hgb Conc 33.6 g/dL (32-36); Mean Corpuscular Hgb 32.7 pg (27.0-32.0); Mean Corpuscular Volume 97.2 fL (81-99); Mean Platelet Vol. 9.5 fl (6.2-12.0); Monocyte# 0.98 X10^3/uL; Monocyte% 13.6 % (0-10); NRBC Flagged by Analyzer 0 % (0-5); Neutrophil # 3.37 X10^3/uL (2.7-7.7); Neutrophil % 46.6 % (47-70); Platelet Count 261 K/mm3 (150-450); RBC Distribution Width CV 12.2 % (11.6-14.6); RBC Distribution Width SD 44.2 fl (35.1-43.9); Red Blood Count 5.05 M/mm3 (4.2-5.4); White Blood Count 7.2 K/mm3 (4.4-11.0)
[2020-02-15 09:15] LABS: Vitamin D,25 Hydroxy 35.6 ng/mL
[2020-02-15 09:25] LABS: ALB/GLOB Ratio 1.1 RATIO (0.9-2.4); AST(SGOT) 24 U/L (15-37); Alanine Aminotransfer ALT/SGPT 28 U/L (13-56); Albumin, Serum 4.1 g/dL (3.2-5.0); Alkaline Phosphatase 74 U/L (45-117); Anion Gap 5 (5-15); BUN 6 mg/dL (7-18); BUN/Creat Ratio 8.5 RATIO (10-20); Calcium,Total 9.3 mg/dL (8.5-10.1); Chloride 99 mmol/L (98-107); Cholesterol 193 mg/dL (200); EST Glomerular Filtration Rate 88 mL/min (>60); Est Glom Filt Rate - Afr Amer 107 mL/min (>60); Globulin 3.6 g/dL (2.2-4.2); Glucose 106 mg/dL (74-106); High Density Lipoprotein 114 mg/dL; Potassium 4.4 mmol/L (3.5-5.1); Protein, Total 7.7 g/dL (6.4-8.2); Sodium Level 131 mmol/L (136-145); T4 Free Direct 1.13 ng/dL (0.76-1.46); Thyroid Stim Hormone (TSH) 1.41 uIU/mL (0.358-3.74); Triglycerides 61 mg/dL; Very Low Density Lipoprotein 12 mg/dL (5-40)
== END ==
DX: D75.1 Secondary polycythemia (principal); I10 Essential (primary) hypertension; E55.9 Vitamin D deficiency, unspecified; F33.0 Major depressive disorder, recurrent, mild; E87.1 Hypo-osmolality and hyponatremia; E78.2 Mixed hyperlipidemia
CPT/HCPCS: 36415; 80053; 80061; 82306; 84439; 84443; 85025

== ENCOUNTER → 2020-06-02 10:52 | Outpatient (CLI) | payer MEDICARE, MEDICAID, SELFPAY ==
[2020-06-02 11:58] LABS: Potassium 4.6 mmol/L (3.5-5.1)
[2020-06-03 16:09] LABS: Endomysial Antibody IgA Negative (Negative)
[2020-06-03 17:08] LABS: Immunoglobulin A 231 mg/dL (87-352); t-Transglutaminase IgA <2 U/mL (0-3)
== END ==
DX: E87.5 Hyperkalemia (principal); R19.7 Diarrhea, unspecified
CPT/HCPCS: 36415; 82784; 83516; 84132; 86255; 87493; 87506

== ENCOUNTER → 2020-06-14 06:50 | Outpatient (CLI) | payer MEDICARE, SELFPAY ==
--- NOTE | 2020-06-14 06:54 | CT_ITS ---
STUDY: CT ABDOMEN AND PELVIS WITH CONTRAST REASON FOR EXAM: Female, 70 years old. 7 week history of diarrhea. RADIATION DOSAGE (If Supplied By Facility): CTDIvol = ( 9.02 ) mGy, DLP = ( 360.86 ) mGycm TECHNIQUE: Transaxial images were obtained from the dome of the diaphragm to the symphysis pubis with oral contrast. Oral and amp; IV Readi-CAT and amp; 100mL Isovue-300 was administered. Sagittal and coronal images were reconstructed. Individualized dose optimization techniques were used for this CT. COMPARISON: None. FINDINGS: The visualized lung bases are unremarkable. Coronary artery calcification. Normal liver. There are surgical clips in the gallbladder fossa consistent with a prior cholecystectomy. Normal spleen. Normal pancreas. Normal bilateral adrenal glands. Normal right kidney. Normal left kidney. Normal visualized stomach. Normal small intestine. Normal colon. The patient is status post appendectomy. There is diffuse atherosclerotic calcification of the abdominal aorta and its major visceral branches, without a demonstrated aneurysm. Normal inferior vena cava. Normal retroperitoneum. Normal urinary bladder. There is absence of the uterus consistent with a prior hysterectomy. Normal abdominal wall. Normal osseous structures. CT/Abdomen/Pelvis WITH Contrast IMPRESSION: No acute abnormalities. Electronically Signed: Eyal Roa MD at 11:07 EDT , Service support ,
== END ==
DX: R19.7 Diarrhea, unspecified (principal)
CPT/HCPCS: 74177; Q9967

== ENCOUNTER → 2020-09-06 10:32 | Outpatient (CLI) | payer MEDICARE, MEDICAID, SELFPAY ==
--- NOTE | 2020-09-06 10:36 | BI_ITS ---
MAMMOGRAPHY - BILATERAL SCREENING 3-D TOMOSYNTHESIS REASON FOR EXAM: Female, 70 years old. SCREENING PERTINENT HISTORY: No significant family history. TECHNIQUE: 2-D mammograms and 3-D Tomosynthesis of the breast (s) were performed. CAD was performed. COMPARISON: 12/31/2018 FINDINGS: The breast composition is of scattered fibroglandular tissue . Scattered benign calcifications are seen. No dense spiculated masses or suspicious microcalcifications are identified. No architectural distortion is identified. There is no skin thickening or retraction. A metallic clip seen in the upper outer quadrant of the right breast. There has been no significant change since the prior study of 12/31/2018. BI/SCRN MAMM (CAD)W/LIZ BILAT IMPRESSION: No mammographic signs of malignancy. Routine yearly mammograms recommended. ASSESSMENT CATEGORY: BIRADS Category 1: Negative. A letter regarding these results will be sent to the patient by the facility within 30 days. FOLLOW UP RECOMMENDATION: Yearly follow up mammogram recommended. (A) Approximately 10% of breast cancers are not detected by mammography. A normal mammogram should not delay biopsy of a clinically suspicious abnormality. Electronically Signed: Tyler Brian, at 13:47 EDT Tel , Service support ,
== END ==
PROVIDERS: Visit Provider Family Medicine
DX: Z12.31 Encounter for screening mammogram for malignant neoplasm of breast (principal)
CPT/HCPCS: 77063; 77067

== ENCOUNTER → 2021-02-03 13:51 | Outpatient (CLI) | payer MEDICARE, MEDICAID, SELFPAY ==
[2021-02-03 15:13] LABS: Hematocrit 43.4 % (37-47); Hemoglobin 15.1 g/dL (12.0-15.0); Mean Corp Hgb Conc 34.8 g/dL (32-36); Mean Corpuscular Hgb 33.3 pg (27.0-32.0); Mean Corpuscular Volume 95.8 fL (81-99); Mean Platelet Vol. 10.1 fl (6.2-12.0); Platelet Count 290 K/mm3 (150-450); RBC Distribution Width CV 11.9 % (11.6-14.6); Red Blood Count 4.53 M/mm3 (4.2-5.4); White Blood Count 5.9 K/mm3 (4.4-11.0)
[2021-02-03 15:30] LABS: Erythrocyte Sedimentation Rate 13 mm/hr (0-30)
[2021-02-03 15:49] LABS: Vitamin B12 393 pg/mL (211-911)
[2021-02-03 15:58] LABS: AST(SGOT) 18 U/L (15-37); Alanine Aminotransfer ALT/SGPT 21 U/L (13-56); Albumin, Serum 3.6 g/dL (3.2-5.0); Alkaline Phosphatase 66 U/L (45-117); Anion Gap 4 (5-15); BUN 9 mg/dL (7-18); BUN/Creat Ratio 14.2 RATIO (10-20); Calcium,Total 8.6 mg/dL (8.5-10.1); Chloride 102 mmol/L (98-107); Cholesterol 209 mg/dL (200); Creatinine, Serum 0.63 mg/dL (0.55-1.02); EST Glomerular Filtration Rate 99 mL/min (>60); Est Glom Filt Rate - Afr Amer 120 mL/min (>60); Globulin 3.7 g/dL (2.2-4.2); Glucose 103 mg/dL (74-106); High Density Lipoprotein 95 mg/dL; Potassium 4.3 mmol/L (3.5-5.1); Protein, Total 7.3 g/dL (6.4-8.2); Sodium Level 131 mmol/L (136-145); T4 Total, Thyroxin 7.9 ug/dL (4.8-13.9); Thyroid Stim Hormone (TSH) 0.78 uIU/mL (0.358-3.74); Triglycerides 148 mg/dL; Very Low Density Lipoprotein 30 mg/dL (5-40)
== END ==
PROVIDERS: Visit Provider Nurse Practitioner Adult Health
DX: I10 Essential (primary) hypertension (principal)
CPT/HCPCS: 36415; 80053; 80061; 82306; 82607; 82746; 84436; 84443; 85027; 85652

== ENCOUNTER → 2021-03-07 08:36 | Outpatient (CLI) | payer MEDICARE, MEDICAID, SELFPAY ==
[2021-03-07 09:52] LABS: Absolute Lymphocyte Count 1.89 X10^3/uL (0.83-4.51); Absolute Neutrophil Count 4.2 X10^3/uL (2.0-7.7); Basophil# 0.08 X10^3/uL; Basophil% 1.1 % (0-1); Eosinophil# 0.19 X10^3/uL; Eosinophils% 2.7 % (0-5); Hematocrit 44.8 % (37-47); Hemoglobin 15.5 g/dL (12.0-15.0); Lymphocyte # 1.89 X10^3/ul (0.83-4.51); Lymphocyte % 27.1 % (19-41); Mean Corp Hgb Conc 34.6 g/dL (32-36); Mean Corpuscular Hgb 32.9 pg (27.0-32.0); Mean Corpuscular Volume 95.1 fL (81-99); Mean Platelet Vol. 10.1 fl (6.2-12.0); Monocyte# 0.61 X10^3/uL; Monocyte% 8.8 % (0-10); NRBC Flagged by Analyzer 0 % (0-5); Neutrophil # 4.18 X10^3/uL (2.7-7.7); Platelet Count 301 K/mm3 (150-450); RBC Distribution Width CV 12.1 % (11.6-14.6); RBC Distribution Width SD 42.6 fl (35.1-43.9); Red Blood Count 4.71 M/mm3 (4.2-5.4)
[2021-03-07 10:02] LABS: Erythrocyte Sedimentation Rate 12 mm/hr (0-30)
[2021-03-07 10:28] LABS: ALB/GLOB Ratio 1.1 RATIO (0.9-2.4); AST(SGOT) 20 U/L (15-37); Alanine Aminotransfer ALT/SGPT 26 U/L (13-56); Albumin, Serum 4.1 g/dL (3.2-5.0); Alkaline Phosphatase 60 U/L (45-117); Anion Gap 8 (5-15); BUN 10 mg/dL (7-18); BUN/Creat Ratio 14.9 RATIO (10-20); CPK Total, Creatine Kinase 98 U/L (26-192); CRP < 2.90 mg/L (0.0-3.0); Calcium,Total 9.3 mg/dL (8.5-10.1); Chloride 101 mmol/L (98-107); Creatinine, Serum 0.67 mg/dL (0.55-1.02); EST Glomerular Filtration Rate 92 mL/min (>60); Est Glom Filt Rate - Afr Amer 112 mL/min (>60); Free T3 2.7 pg/mL (2.18-3.98); Globulin 3.8 g/dL (2.2-4.2); Glucose 106 mg/dL (74-106); LDH 143 U/L (84-246); Protein, Total 7.9 g/dL (6.4-8.2); Sodium Level 133 mmol/L (136-145); T4 Free Direct 1.01 ng/dL (0.76-1.46); T4 Total, Thyroxin 6.7 ug/dL (4.8-13.9); Thyroid Stim Hormone (TSH) 0.56 uIU/mL (0.358-3.74)
[2021-03-07 11:42] LABS: Hemoglobin A1c 4.6 % (3.8-5.6)
[2021-03-10 16:08] LABS: Angiotensin Convert Enzyme 54 U/L (14-82); Cytoplasmic Ab (C-ANCA) <1:20 titer (Neg:<1:20); Endomysial Antibody IgA Negative (Negative); Immunoglobulin A 272 mg/dL (87-352); Immunoglobulin E 1386 IU/mL (6-495); Immunoglobulin G 834 mg/dL (586-1602)
[2021-03-10 20:32] LABS: Gastrin, Serum 56 pg/mL (0-115); Immunoglobulin M 113 mg/dL (26-217); Perinuclear Ab (P-ANCA) <1:20 titer (Neg:<1:20); t-Transglutaminase IgA <2 U/mL (0-3)
[2021-03-13 04:06] LABS: Anti-Centromere B Ab <0.2 AI (0.0-0.9); Anti-Chromatin <0.2 AI (0.0-0.9); Anti-Jo <0.2 AI (0.0-0.9); Anti-Scleroderma-70 AB <0.2 AI (0.0-0.9); Anti-ribosomal P Antibodies <0.2 AI (0.0-0.9); Clam <0.10 kU/L (Class 0); Codfish <0.10 kU/L (Class 0); Corn <0.10 kU/L (Class 0); Egg, White <0.10 kU/L (Class 0); Milk (Cow) 0.15 kU/L (Class 0/I); Peanut <0.10 kU/L (Class 0); RNP Ab 0.4 AI (0.0-0.9); SCALLOP <0.10 kU/L (Class 0); SJOGREN'S Anti-SS-A test < 0.2 AI (0.0-0.9); SJOGREN'S Anti-SS-B test < 0.2 AI (0.0-0.9); Shrimp <0.10 kU/L (Class 0); Smith Ab <0.2 AI (0.0-0.9); Smith/RNP Ab <0.2 AI (0.0-0.9); Soybean <0.10 kU/L (Class 0); Walnut, (Food) <0.10 kU/L (Class 0); Wheat 0.11 kU/L (Class 0/I)
[2021-03-13 14:54] LABS: Anti-dsDNA Ab <1 IU/mL (0-9); SESAME SEED <0.10 kU/L (Class 0)
== END ==
PROVIDERS: Referring Provider Internal Medicine Gastroenterology; Visit Provider Internal Medicine Gastroenterology
DX: E78.5 Hyperlipidemia, unspecified (principal); R19.7 Diarrhea, unspecified; R42 Dizziness and giddiness; E11.9 Type 2 diabetes mellitus without complications
CPT/HCPCS: 36415; 80053; 82164; 82550; 82784; 82785; 82941; 83036; 83516; 83615; 84436; 84439; 84443; 84481; 85025; 85652; 86003; 86038; 86140; 86225; 86235; 86255; 86256; 86340

== ENCOUNTER 2021-04-10 09:07 | Day surgery (SDC) | payer MEDICARE, SELFPAY ==
[2021-04-10 09:57] VITALS: BP 144/66; PULSE 74; RESP 16; TEMP 36.6; O2SAT 96; BMI 19.5
--- NOTE | 2021-04-10 09:58 | PCM.HP.BLA ---
History and Physical Date of Admission: 04/10/21 70 F who presents to the office today for further evaluation of weight loss and diarrhea. She is status post cholecystectomy over 20 years ago. She is also had a hysterectomy and appendectomy multiple years ago. About a year ago she started developing worsening diarrhea associated with urgency. She says over the last year she has lost about 65 pounds. She denies any rash, lymphadenopathy, night sweats. She does complain of fatigue and muscle weakness. She has no family history of any inflammatory bowel disease or colorectal malignancy. She underwent a colonoscopy almost 2 years ago. At that time she had a very poor prep. Random biopsies did not show any signs of microscopic colitis. She has no history of diabetes. She did have some thyroid nodules evaluated, but they were benign as per the patient. She has no history of cardiovascular disease. She has been complaining of shortness of breath without PND. She had a cardiovascular evaluation early in the year and there was no signs of ischemic cardiomyopathy or congestive heart failure. She cannot identify any specific food that contributes to her diarrhea. Currently her BMI is 20. She did have stools for enteric pathogens and C. difficile which was subsequently negative for any acute or chronic infection. She does not drink well water. She denies any infections over the last year or antibiotics. She has been having diarrhea for the last year with fatigue and weight loss. Diarrhea is triggered by PO intake without specific foods. Admits to minimal incontinence when abdominal pressure is increased. Reports blood when wiping. Periodically she will get RLQ discomfort that dissipates in moments. Denies abdominal cramping and additional pain. CT abd/pel performed 06/14/20 with noted cholecystectomy. Diffuse atherosclerotic calcification of abdominal aorta and major visceral branches. ROS Const Constitutional: Positive for fatigue and weight change ENT ENT: Positive for hearing loss Cardio Cardiology: Positive for shortness of breath Gastro GI: Positive for diarrhea Endo Endocrine: Positive for fatigue and weight change Exam Const General: cooperative and comfortable Nutritional Appearance: average body habitus and well nourished [facility] Head: normal to inspection Ears: hearing grossly normal bilaterally Nose: external nose normal Face and sinus: normal facial exam Mouth: oral mucosae normal Throat: posterior oropharynx normal Eyes General: appearance normal, both eyes and all related structures Neck Neck: normal visual inspection Chest Chest palpation & inspection: normal inspection of the chest and normal palpation of entire chest wall Resp Effort & Inspection: normal respiratory effort Auscultation: Bilateral: Clear to Auscultation Cardio Palpation: normal PMI Rate: regular rate Rhythm: regular rhythm GI Inspection: normal to inspection Auscultation: normal bowel sounds Percussion: normal to percussion Palpation: no hepatosplenomegaly Skin General: no rashes or lesions noted Neuro General: patient alert Extrem General: normal to inspection Psych Affect: normal affect Quality Reporting Tobacco Screening ([facility] 138) Smoking Status: Current every day smoker Assessment and Plan Assessment and Plan (1) Diarrhea: Status: Acute Orders: Orders: Colonoscopy Today R19.7 EGD Today R19.7 Comprehensive Metabolic Profil Today R19.7 CRP Today R19.7 LDH Today R19.7 CBC W/Diff, Automated Today R19.7 Erythrocyte Sed Rate Today R19.7 Angiotensin Convert Enzyme Today R19.7 Celiac Disease Profile Today R19.7 Giardia Lamblia, Stool EIA Today R19.7 Immunoglobulin A Today R19.7 Immunoglobulin E Today R19.7 Immunoglobulin G Today R19.7 Immunoglobulin M Today R19.7 Miscellaneous Lab Procedure Today R19.7 ANCA Today R19.7 Intrinsic Factor Ab Today R19.7 Free T3 Today R19.7 Gastrin, Serum Today R19.7 Plan - Dr. Lane Friend, DO: The differential diagnosis for diarrhea would be noninfectious and less likely infectious diarrhea. She is not showing any signs of inflammatory bowel disease. However it appears that she does have severe arthritis. If it is rheumatoid arthritis then she can this can be associated with a bowel disease of the small bowel such as Behcet's syndrome. Also this could be an accelerated gastrocolic reflex associated with dumping syndrome. However I would not expect the type of weight loss that she has been having. She should also be checked for celiac disease as that can be associated with microscopic colitis or constipation and would explain the weight loss was. We will see if she has any associated disease that would cause diarrhea such as polymyositis. She does not have any rashes to make me think about dermatomyositis. She is B12 and vitamin D deficient. She has a possibility of pernicious anemia which can also be associated with lymphocytic colitis. She will get an upper and lower endoscopy with biopsies of the esophagus stomach small bowel and colon to look for eosinophilic gastroenteritis. If biochemical work-up and endoscopy do not show anything then she will need a small bowel capsule to look for diseases such as small bowel lymphoma. We may pursue empiric treatment pending stool studies such as fecal fat which can be elevated secondary to bacterial overgrowth or pancreatic insufficiency. I have re-examined the patient. There are no clinical changes since date of exam.
[2021-04-10] MEDS: Lactated Ringers 1,000 ML 30 ML IV (10:10)
--- NOTE | 2021-04-10 10:15 | EGD_PTH ---
PATIENT: BECKI MELENDEZ LOC: [facility] U#:[id number] AGE/SX: 71/F ROOM: RE04/10/[address]: Dr. Domingo Forbes DO : 1950 BED: DIS: 04/10/2021 SPEC #: [id number] RECD: 04/10/21 12:31 STATUS: YENNY KACIE #: [id number] LICHA: 04/10/21 10:[address]: Domingo Forbes DEPT: SURGICAL PATHOLOGY RECD BY: Joselyn Robledo ENTERED: 04/10/21 13:11 SP TYPE: EGD BIOPSY OTHR DR: Chely [facility] Tissues: A - Duodenum, NOS B - Pylorus C - Gastric mucous membrane D - Esophagus, NOS E - COLON BIOPSY Procedures: Special Stain Group II Surgery Specimen Level IV Alcian Blue/PAS (control) HEADER OPERATION: Colonoscopy with bipolar electrohemostasis, EGD with biopsies PRE-OP DIAGNOSIS: Diarrhea TISSUE SUBMITTED: A ? Duodenum biopsy, B ? Pyloric ulcer biopsy, C ? Gastric antrum biopsy for H.?pylori, D ? Distal esophagus biopsy, E ? Random colon biopsy MICROSCOPIC DIAGNOSIS A. Duodenum, biopsy: Fragments of duodenal mucosa with focal gastric metaplasia, mild Grayson gland hyperplasia and nonspecific chronic inflammation. B. Pyloric ulcer, biopsy: A fragment of gastric mucosa with mild chronic inflammation, congestion, hemorrhage and focal intestinal metaplasia (goblet cell metaplasia). See comment. C. Gastric antrum, biopsy: Mild gastritis. See microscopic description and comment. D. Distal esophagus, biopsy: Fragments of gastroesophageal mucosa with focal intestinal metaplasia (goblet cell metaplasia), consistent with Bwoles?s esophagus. Focal mild chronic inflammation. Negative for dysplasia. See comment. E. Colon, random biopsy: Fragments of colonic mucosa, no pathologic diagnosis. SJ:padmini 04/11/2021 COMMENT C. The results of immunohistochemistry for Helicobacter pylori will be reported separately ([id number]). B. Alcian blue/PAS stain with matched control is used in the evaluation of the specimen. D. Immunohistochemistry ([id number]) for P53 and Ki-67 will be performed and results will be reported separately. Alcian blue/PAS stain with matched control is used in the evaluation of the specimen. The specimen predominantly consists of gastric mucosa. MICROSCOPIC DESCRIPTION Slides are reviewed. C. The specimen shows fragments of gastric mucosa with chronic inflammatory cell infiltrates in the lamina propria consisting of lymphocytes and plasma cells, consistent with mild chronic gastritis. GROSS DESCRIPTION A - Received in fixative is one container labeled with the patient's name and designated duodenum. The specimen consists of multiple irregular fragments of light gamez soft tissue that in aggregate measure 1.5 x 1.5 x 0.1 cm. The specimen is totally submitted in one cassette. B - Received in fixative is one container labeled with the patient's name and designated biopsy pyloric ulcer. The specimen consists of one irregular fragment of light gamez soft tissue that measures 0.5 x 0.3 x 0.1 cm. The specimen is totally submitted in one cassette. C - Received in fixative is one container labeled with the patient's name and designated gastric antrum. The specimen consists of two irregular fragments of light gamez soft tissue that in aggregate measure 0.5 x 0.3 x 0.1 cm. The specimen is totally submitted in one cassette. D - Received in fixative is one container labeled with the patient's name and designated distal esophagus biopsy. The specimen consists of two irregular fragments of light gamez soft tissue that in aggregate measure 0.8 x 0.5 x 0.1 cm. The specimen is totally submitted in one cassette. E - Received in fixative is one container labeled with the patient's name and designated random colon biopsy. The specimen consists of multiple irregular fragments of light gamez soft tissue that in aggregate measure 1.5 x 0.6 x 0.1 cm. The specimen is totally submitted in one cassette. / AM:padmini 04/10/2021 TC:3 CPT: 49846 x5, 91959 x2
--- NOTE | 2021-04-10 10:15 | IMM_PTH ---
PATIENT: BECKI MELENDEZ LOC: [facility] U#:[id number] AGE/SX: 71/F ROOM: RE04/10/[address]: Dr. Domingo Forbes DO : 1950 BED: DIS: 04/10/2021 SPEC #: [id number] RECD: 04/10/21 13:37 STATUS: YENNY REAriel #: [id number] LICHA: 04/10/21 10:[address]: Domingo Forbes DEPT: IMMUNOHISTOCHEMISTRY RECD BY: Altagracia Rocha ENTERED: 04/10/21 13:38 SP TYPE: IMMUNO OTHR DR: Chely [facility] Tissues: C - Stomach, NOS D - Esophagus, NOS Procedures: H Pylori (initial) P53 (initial) KI-67 (add) PHYSICIAN & INSTITUTION [place] [id number] SPECIMEN INFORMATION: Tissue Source: C ? Gastric antrum, D ? Distal esophagus Clinical Info: Diarrhea Specimen Number: [id number] C & D CPT code: 31704 x2, 88231 METHODOLOGY: Deparaffinized sections of prefer/formalin-fixed tissue or PAP/DQ stained slides are incubated with monoclonal/polyclonal antibodies/oligonucleotide probes. Localization is made via biotin free immunoperoxidase method. Appropriate controls are performed and reacted as expected. Results on target cell population are indicated in the following table: RESULTS: ANTIBODY / CLONE RESULT Block C H Pylori (polyclonal) negative Block D P53 (DO-7) negative Ki-67 (30-9) positive, very low These tests were developed and their performance characteristics determined by [facility]. They may not have been cleared or approved by the U.S. Food and Drug Administration. The FDA has determined that such clearance or approval is not necessary. The above immunohistochemical/dualISH markers are ordered and reviewed by the pathologist. INTERPRETATION: C. Gastric antrum, biopsy: Negative for Helicobacter pylori organisms. D. Distal esophagus, biopsy: Negative for dysplasia. SJ:padmini 04/11/2021
--- NOTE | 2021-04-10 11:30 | OP.EGD_ITS ---
Patient Name: Jazmyn Dickey Procedure Date: 04/10/2021 11:06 AM Date of : 1950 Age: 71 Procedure: Upper GI endoscopy Indications: Epigastric abdominal pain Providers: Domingo Forbes DO Medicines: See the Anesthesia note for documentation of the administered medications Patient Profile: This is a 71 year old female. Refer to note in patient chart for documentation of history and physical. Patient has symptoms of acute global abdominal pain. Complications: No immediate complications. Procedure: Pre-Anesthesia Assessment: - Prior to the procedure, a History and Physical was performed, and patient medications and allergies were reviewed. The risks and benefits of the procedure and the sedation options and risks were discussed with the patient. All questions were answered and informed consent was obtained. Patient identification and proposed procedure were verified by the physician in the pre-procedure area. Mental Status Examination: alert and oriented. Airway Examination: normal oropharyngeal airway and neck mobility. Respiratory Examination: clear to auscultation. CV Examination: normal. Prophylactic Antibiotics: The patient does not require prophylactic antibiotics. Prior Anticoagulants: The patient has taken no previous anticoagulant or antiplatelet agents. ASA Grade Assessment: II - A patient with mild systemic disease. After reviewing the risks and benefits, the patient was deemed in satisfactory condition to undergo the procedure. The anesthesia plan was to use moderate sedation / analgesia (conscious sedation). Immediately prior to administration of medications, the patient was re-assessed for adequacy to receive sedatives. The heart rate, respiratory rate, oxygen saturations, blood pressure, adequacy of pulmonary ventilation, and response to care were monitored throughout the procedure. The physical status of the patient was re-assessed after the procedure. After obtaining informed consent, the endoscope was passed under direct vision. Throughout the procedure, the patient's blood pressure, pulse, and oxygen saturations were monitored continuously. The Endoscope was introduced through the mouth, and advanced to the second part of duodenum. The upper GI endoscopy was accomplished without difficulty. The patient tolerated the procedure well. Moderate Sedation: Moderate (conscious) sedation was administered by the endoscopy nurse and supervised by the endoscopist. The patient's oxygen saturation, heart rate, blood pressure and response to care were monitored. Total physician intraservice time was 15 minutes. Scope In: 11:17:00 AM Scope Out: 11:26:36 AM Total Procedure Duration Time 0 hours 9 minutes 36 seconds Findings: LA Grade A (one or more mucosal breaks less than 5 mm, not extending between tops of 2 mucosal folds) esophagitis with no bleeding was found 34 to 35 cm from the incisors. Biopsies were taken with a cold forceps for histology. Verification of patient identification for the specimen was done. Estimated blood loss was minimal. Diffuse moderately erythematous mucosa with bleeding was found in the gastric body, in the gastric antrum and at the pylorus. Biopsies were taken with a cold forceps for histology. Verification of patient identification for the specimen was done. Estimated blood loss was minimal. One non-bleeding cratered gastric ulcer with no stigmata of bleeding was found at the pylorus. The lesion was 6 mm in largest dimension. Biopsies were taken with a cold forceps for histology. Verification of patient identification for the specimen was done. Estimated blood loss was minimal. Diffuse moderately erythematous mucosa without active bleeding and with no stigmata of bleeding was found in the duodenal bulb, in the first portion of the duodenum and in the second portion of the duodenum. Biopsies were taken with a cold forceps for histology. Verification of patient identification for the specimen was done. Estimated blood loss was minimal. Impression: - LA Grade A reflux esophagitis. Biopsied. - Erythematous mucosa in the gastric body, antrum and pylorus. Biopsied. - Non-bleeding gastric ulcer with no stigmata of bleeding. Biopsied. - Erythematous duodenopathy. Biopsied. Recommendation: - Discharge patient to home. - Resume previous diet. - Continue present medications. - Await pathology results. - Return to my office. Procedure Code(s): --- Professional --- 63223, Esophagogastroduodenoscopy, flexible, transoral; with biopsy, single or multiple 45800, 59, Moderate sedation services provided by the same physician or other qualified health day care home mother performing the diagnostic or therapeutic service that the sedation supports, requiring the presence of an independent trained observer to assist in the monitoring of the patient's level of consciousness and physiological status; initial 15 minutes of intraservice time, patient age 5 years or older CPT copyright 2017 [employer]. All rights reserved. The codes documented in this report are preliminary and upon saw straightener review may be revised to meet current compliance requirements. Domingo Forbes DO 04/10/2021 11:30:18 AM This report has been signed electronically. Number of Addenda: 1 Note Initiated On: 04/10/2021 11:06 AM Addendum Number: 1 Addendum Date: 11/23/2021 6:23:09 AM MAC was used instead of moderate sedation for the patient. Domingo Forbes DO 11/23/2021 6:23:13 AM This report has been signed electronically.
--- NOTE | 2021-04-10 11:31 | OP.CCLET_ITS ---
[facility] This procedure was performed on Saturday, April 10, 2021. My impressions and recommendations are as follows: Impressions : - LA Grade A reflux esophagitis. Biopsied. - Erythematous mucosa in the gastric body, antrum and pylorus. Biopsied. - Non-bleeding gastric ulcer with no stigmata of bleeding. Biopsied. - Erythematous duodenopathy. Biopsied. Recommendations : - Discharge patient to home. - Resume previous diet. - Continue present medications. - Await pathology results. - Return to my office. My findings are described in the full procedure note, which is enclosed. If I can be of further assistance, please feel free to contact me at . Sincerely, Domingo Forbes, 04/10/2021 11:30:18 AM This report has been signed electronically.
[2021-04-10 11:56] VITALS: BP 125/62; BP 144/66; PULSE 72; RESP 14; TEMP 36.1; O2SAT 99
--- NOTE | 2021-04-10 11:58 | OP.COLON_ITS ---
Patient Name: Jazmyn Dickey Procedure Date: 04/10/2021 11:27 AM Date of : 1950 Age: 71 Procedure: Colonoscopy Indications: Clinically significant diarrhea of unexplained origin Providers: Domingo Forbes DO Medicines: See the Anesthesia note for documentation of the administered medications Patient Profile: This is a 71 year old female. Refer to note in patient chart for documentation of history and physical. Patient has symptoms of acute global abdominal pain. Last Colonoscopy: date unknown. Complications: No immediate complications. Procedure: Pre-Anesthesia Assessment: - Prior to the procedure, a History and Physical was performed, and patient medications and allergies were reviewed. The risks and benefits of the procedure and the sedation options and risks were discussed with the patient. All questions were answered and informed consent was obtained. Patient identification and proposed procedure were verified by the physician in the pre-procedure area. Mental Status Examination: alert and oriented. Airway Examination: normal oropharyngeal airway and neck mobility. Respiratory Examination: clear to auscultation. CV Examination: normal. Prophylactic Antibiotics: The patient does not require prophylactic antibiotics. Prior Anticoagulants: The patient has taken no previous anticoagulant or antiplatelet agents. ASA Grade Assessment: II - A patient with mild systemic disease. After reviewing the risks and benefits, the patient was deemed in satisfactory condition to undergo the procedure. The anesthesia plan was to use moderate sedation / analgesia (conscious sedation). Immediately prior to administration of medications, the patient was re-assessed for adequacy to receive sedatives. The heart rate, respiratory rate, oxygen saturations, blood pressure, adequacy of pulmonary ventilation, and response to care were monitored throughout the procedure. The physical status of the patient was re-assessed after the procedure. After I obtained informed consent, the scope was passed under direct vision. Throughout the procedure, the patient's blood pressure, pulse, and oxygen saturations were monitored continuously. The colonoscope was introduced through the anus and advanced to the terminal ileum. The colonoscopy was performed without difficulty. The patient tolerated the procedure well. The quality of the bowel preparation was good. Moderate Sedation: Moderate (conscious) sedation was administered by the endoscopy nurse and supervised by the endoscopist. The patient's oxygen saturation, heart rate, blood pressure and response to care were monitored. Total physician intraservice time was 15 minutes. Scope In: 11:32:58 AM Scope Withdrawal Time 0 hours 15 minutes 16 seconds Scope Out: 11:52:04 AM Total Procedure Duration Time 0 hours 19 minutes 6 seconds Findings: Hemorrhoids were found on perianal exam. An area of mildly congested mucosa was found in the sigmoid colon, in the descending colon, at the splenic flexure, in the transverse colon and at the hepatic flexure. Biopsies were taken with a cold forceps for histology. A few large localized angiodysplastic lesions with stigmata of recent bleeding were found in the ascending colon. Coagulation for bleeding prevention using argon plasma at 0.3 liters/minute and 20 harp was successful. Estimated blood loss was minimal. Impression: - Hemorrhoids found on perianal exam. - No specimens collected. Recommendation: - Discharge patient to home. - Resume previous diet. - Continue present medications. - Await pathology results. - Await pathology results. - Return to my office. - Repeat colonoscopy is recommended. The colonoscopy date will be determined after pathology results from today's exam become available for review. Procedure Code(s): --- Professional --- 20445, 59, Colonoscopy, flexible; with control of bleeding, any method 59114, Colonoscopy, flexible; with biopsy, single or multiple 25545, 59, Moderate sedation services provided by the same physician or other qualified health day care center director performing the diagnostic or therapeutic service that the sedation supports, requiring the presence of an independent trained observer to assist in the monitoring of the patient's level of consciousness and physiological status; initial 15 minutes of intraservice time, patient age 5 years or older CPT copyright 2017 [employer]. All rights reserved. The codes documented in this report are preliminary and upon transportation attendant review may be revised to meet current compliance requirements. Domingo Forbes DO 04/10/2021 11:57:59 AM This report has been signed electronically. Number of Addenda: 1 Note Initiated On: 04/10/2021 11:27 AM Addendum Number: 1 Addendum Date: 11/23/2021 6:23:25 AM MAC was used instead of moderate sedation for the patient. Domingo oFrbes DO 11/23/2021 6:23:29 AM This report has been signed electronically.
--- NOTE | 2021-04-10 11:58 | OP.CCLET_ITS ---
11/23/2021 Chely Song [facility] Re : [facility] This procedure was performed on Saturday, April 10, 2021. My impressions and recommendations are as follows: Impressions : - Hemorrhoids found on perianal exam. - No specimens collected. Recommendations : - Discharge patient to home. - Resume previous diet. - Continue present medications. - Await pathology results. - Await pathology results. - Return to my office. - Repeat colonoscopy is recommended. The colonoscopy date will be determined after pathology results from today's exam become available for review. My findings are described in the full procedure note, which is enclosed. If I can be of further assistance, please feel free to contact me at . Sincerely, Domingo Friend, 04/10/2021 11:57:59 AM This report has been signed electronically.
[2021-04-10 12:00] VITALS: BP 127/65; BP 144/66; PULSE 71; RESP 16; O2SAT 97
[2021-04-10 12:06] VITALS: BP 144/66; BP 150/73; PULSE 71; RESP 16; O2SAT 97
[2021-04-10 12:12] VITALS: BP 134/69; BP 144/66; PULSE 74; RESP 16; TEMP 36.1; O2SAT 97
[2021-04-10 13:02] VITALS: BP 144/66
== END 2021-04-10 23:59 | disposition home or self-care (01) ==
LOC: EN 09:37 → AC 09:37
PROVIDERS: Visit Provider Internal Medicine Gastroenterology
PROC: 0DJD8ZZ Inspection of Lower Intestinal Tract, Via Natural or Artificial Opening Endoscopic (ICD-10-PCS; CPT 45378; principal; 2021-04-10 10:10)
DX: K55.21 Angiodysplasia of colon with hemorrhage (principal); J44.9 Chronic obstructive pulmonary disease, unspecified; K29.70 Gastritis, unspecified, without bleeding; F17.200 Nicotine dependence, unspecified, uncomplicated; K64.9 Unspecified hemorrhoids; K25.9 Gastric ulcer, unspecified as acute or chronic, without hemorrhage or perforation; K21.00 Gastro-esophageal reflux disease with esophagitis, without bleeding; I10 Essential (primary) hypertension; E78.5 Hyperlipidemia, unspecified; Z79.899 Other long term (current) drug therapy; Z90.49 Acquired absence of other specified parts of digestive tract
CPT/HCPCS: 45380; 43239; 45382; 87426; 88305; 88313; 88341; 88342; J7120; J2405

== ENCOUNTER → 2021-05-03 08:36 | Outpatient (CLI) | payer MEDICARE, SELFPAY ==
[2021-05-10 07:57] LABS: Miscellaneous Lab Procedure E
== END ==
PROVIDERS: Referring Provider Internal Medicine Gastroenterology; Visit Provider Internal Medicine Gastroenterology
DX: R19.7 Diarrhea, unspecified (principal)
CPT/HCPCS: 87177; 87209

== ENCOUNTER 2021-05-24 10:38 | Outpatient (CLI) | payer MEDICARE, MEDICAID, SELFPAY ==
[2021-05-24 11:04] LABS: Absolute Lymphocyte Count 2.08 X10^3/uL (0.83-4.51); Absolute Neutrophil Count 5.9 X10^3/uL (2.0-7.7); Basophil# 0.11 X10^3/uL; Basophil% 1.2 % (0-1); Eosinophil# 0.36 X10^3/uL; Eosinophils% 3.9 % (0-5); Hematocrit 45.9 % (37-47); Hemoglobin 15.8 g/dL (12.0-15.0); Lymphocyte # 2.08 X10^3/ul (0.83-4.51); Lymphocyte % 22.3 % (19-41); Mean Corp Hgb Conc 34.4 g/dL (32-36); Mean Corpuscular Hgb 32.4 pg (27.0-32.0); Mean Corpuscular Volume 94.3 fL (81-99); Mean Platelet Vol. 9.9 fl (6.2-12.0); Monocyte# 0.88 X10^3/uL; Monocyte% 9.4 % (0-10); NRBC Flagged by Analyzer 0 % (0-5); Neutrophil # 5.88 X10^3/uL (2.7-7.7); Neutrophil % 62.9 % (47-70); Platelet Count 288 K/mm3 (150-450); RBC Distribution Width CV 11.9 % (11.6-14.6); RBC Distribution Width SD 41.6 fl (35.1-43.9); Red Blood Count 4.87 M/mm3 (4.2-5.4); White Blood Count 9.3 K/mm3 (4.4-11.0)
[2021-05-24 11:34] LABS: ALB/GLOB Ratio 1.2 RATIO (0.9-2.4); AST(SGOT) 17 U/L (15-37); Alanine Aminotransfer ALT/SGPT 20 U/L (13-56); Albumin, Serum 4.1 g/dL (3.2-5.0); Alkaline Phosphatase 59 U/L (45-117); Anion Gap 9 (5-15); BUN 12 mg/dL (7-18); BUN/Creat Ratio 14.8 RATIO (10-20); Calcium,Total 9.3 mg/dL (8.5-10.1); Chloride 100 mmol/L (98-107); Creatinine, Serum 0.81 mg/dL (0.55-1.02); EST Glomerular Filtration Rate 75 mL/min (>60); Est Glom Filt Rate - Afr Amer 90 mL/min (>60); Globulin 3.5 g/dL (2.2-4.2); Glucose 117 mg/dL (74-106); Potassium 4.3 mmol/L (3.5-5.1); Protein, Total 7.6 g/dL (6.4-8.2); Sodium Level 133 mmol/L (136-145)
[2021-05-28 17:06] LABS: Immunoglobulin A 253 mg/dL (87-352); Immunoglobulin G 834 mg/dL (586-1602); Immunoglobulin M 111 mg/dL (26-217)
[2021-05-28 18:06] LABS: Immunoglobulin E 926 IU/mL (6-495)
== END 2021-05-24 23:59 | disposition home or self-care (01) ==
LOC: LAB 10:39
PROVIDERS: Referring Provider Internal Medicine Gastroenterology; Visit Provider Internal Medicine Gastroenterology
DX: R42 Dizziness and giddiness (principal); R76.8 Other specified abnormal immunological findings in serum
CPT/HCPCS: 36415; 80053; 82784; 82785; 85025

== ENCOUNTER → 2021-07-25 | Outpatient (CLI) | payer MEDICARE, MEDICAID, SELFPAY ==
[2021-07-25 10:18] LABS: Erythrocyte Sedimentation Rate 9 mm/hr (0-30)
[2021-07-25 11:36] LABS: ALB/GLOB Ratio 1.1 RATIO (0.9-2.4); AST(SGOT) 15 U/L (15-37); Alanine Aminotransfer ALT/SGPT 19 U/L (13-56); Albumin, Serum 4.1 g/dL (3.2-5.0); Alkaline Phosphatase 60 U/L (45-117); Amylase 57 U/L (25-115); Anion Gap 10 (5-15); BUN 11 mg/dL (7-18); BUN/Creat Ratio 15.3 RATIO (10-20); CRP < 2.90 mg/L (0.0-3.0); Calcium,Total 9.1 mg/dL (8.5-10.1); Chloride 102 mmol/L (98-107); Creatinine, Serum 0.72 mg/dL (0.55-1.02); EST Glomerular Filtration Rate 85 mL/min (>60); Est Glom Filt Rate - Afr Amer 103 mL/min (>60); Globulin 3.7 g/dL (2.2-4.2); Glucose 109 mg/dL (74-106); LDH 149 U/L (84-246); Lipase 98 U/L (73-393); Potassium 4.2 mmol/L (3.5-5.1); Protein, Total 7.8 g/dL (6.4-8.2); Sodium Level 135 mmol/L (136-145)
[2021-07-25 14:10] LABS: Absolute Lymphocyte Count 2.43 X10^3/uL (0.83-4.51); Absolute Neutrophil Count 4.3 X10^3/uL (2.0-7.7); Basophil# 0.12 X10^3/uL; Basophil% 1.5 % (0-1); Eosinophil# 0.36 X10^3/uL; Eosinophils% 4.5 % (0-5); Hematocrit 46.1 % (37-47); Hemoglobin 15.9 g/dL (12.0-15.0); Lymphocyte # 2.43 X10^3/ul (0.83-4.51); Lymphocyte % 30.3 % (19-41); Mean Corp Hgb Conc 34.5 g/dL (32-36); Mean Corpuscular Hgb 32.6 pg (27.0-32.0); Mean Corpuscular Volume 94.5 fL (81-99); Mean Platelet Vol. 10.4 fl (6.2-12.0); Monocyte# 0.78 X10^3/uL; Monocyte% 9.7 % (0-10); NRBC Flagged by Analyzer 0 % (0-5); Neutrophil # 4.31 X10^3/uL (2.7-7.7); Neutrophil % 53.8 % (47-70); Platelet Count 232 K/mm3 (150-450); RBC Distribution Width SD 42.2 fl (35.1-43.9); Red Blood Count 4.88 M/mm3 (4.2-5.4)
[2021-08-01 11:08] LABS: Albumin 4.2 g/dL (2.9-4.4); Alpha-1-Globulins 0.3 g/dL (0.0-0.4); Alpha-2-Globulins 0.7 g/dL (0.4-1.0); Cytoplasmic Ab (C-ANCA) <1:20 titer (Neg:<1:20); Endomysial Antibody IgA Negative (Negative); Immunoglobulin A 262 mg/dL (87-352); Immunoglobulin E 759 IU/mL (6-495); Immunoglobulin G 859 mg/dL (586-1602); Immunoglobulin M 119 mg/dL (26-217); PROEL- TOTAL PROTEIN 7.3 g/dL (6.0-8.5)
[2021-08-01 13:14] LABS: Gastrin, Serum 35 pg/mL (0-115); Perinuclear Ab (P-ANCA) <1:20 titer (Neg:<1:20); t-Transglutaminase IgA <2 U/mL (0-3)
[2021-08-01 22:06] LABS: Alternaria alternata <0.10 kU/L (Class 0); Anti-Centromere B Ab <0.2 AI (0.0-0.9); Anti-Chromatin <0.2 AI (0.0-0.9); Anti-Jo <0.2 AI (0.0-0.9); Anti-Scleroderma-70 AB <0.2 AI (0.0-0.9); Bermuda Grass <0.10 kU/L (Class 0); Bluegrass, Kentucky <0.10 kU/L (Class 0); Cat Hair/Dander, Standard <0.10 kU/L (Class 0); D farinae Mite <0.10 kU/L (Class 0); D pteronyssinus <0.10 kU/L (Class 0); Dog Epithelia <0.10 kU/L (Class 0); Elm, American White <0.10 kU/L (Class 0); Oak, White <0.10 kU/L (Class 0); Plantain, English <0.10 kU/L (Class 0); RNP Ab 0.3 AI (0.0-0.9); Ragweed, Short/Common <0.10 kU/L (Class 0); SJOGREN'S Anti-SS-A test < 0.2 AI (0.0-0.9); SJOGREN'S Anti-SS-B test < 0.2 AI (0.0-0.9); Smith Ab <0.2 AI (0.0-0.9)
[2021-08-01 22:14] LABS: Anti-dsDNA Ab <1 IU/mL (0-9); Mouse Urine <0.10 kU/L (Class 0)
== END | disposition home or self-care (01) ==
PROVIDERS: Referring Provider Internal Medicine Gastroenterology; Visit Provider Internal Medicine Gastroenterology
DX: K25.9 Gastric ulcer, unspecified as acute or chronic, without hemorrhage or perforation (principal); R76.8 Other specified abnormal immunological findings in serum; R19.7 Diarrhea, unspecified; K22.70 Barrett's esophagus without dysplasia; R42 Dizziness and giddiness
CPT/HCPCS: 36415; 80053; 82150; 82784; 82785; 82941; 83516; 83615; 83690; 84165; 85025; 85652; 86003; 86140; 86225; 86235; 86255; 86256; 86334

== ENCOUNTER 2021-08-30 06:04 | Day surgery (SDC) | payer MEDICARE, MEDICAID, SELFPAY ==
[2021-07-31 13:41] LABS: Calprotectin, Stool 21 ug/g (0-120)
[2021-08-30] VITALS (7 sets, daily range): BP systolic 94–122; BP diastolic 48–74; PULSE 64–65; RESP 16–18; TEMP 36.5–36.8; O2SAT 94–97; BMI 20.1
--- NOTE | 2021-08-30 06:37 | HP.PCM_ITS ---
History and Physical Date of Admission: 08/30/21 BECKI MELENDEZ, is a 71 F who presents to the office today for Follow up visit. [place] established with this clinic 03.07.21 for evaluation of weight loss and diarrhea; onset 2019 with progressive worsening. Decreased appetite caused 65lbs loss. CT abd/pel performed 06.14.20 with noted cholecystectomy. Diffuse atherosclerotic calcification of abdominal aorta and major visceral branches. Biochemical workup 03.07.21 found allergy to wheat and cow?s milk and an IgE almost triple normal range at 1386. IgE 05.24.21 926 EGD and colonoscopy performed 04.10.21. EGD found short segment Bowles's esophagus, sliding hiatal hernia, gastritis involving the gastric antrum and pylorus, duodenitis pyloric channel ulcer with metaplasia and without dysplasia. 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 Colonoscopy found diverticulosis, hemorrhoids with an anal fissure. Weights: 04.10.21 117lbs 05.24.21 111lbs Previous medications include prednisone (ineffective); Carafate (ended) Medications currently recommended by this clinic include prednisone; Lomotil; protonix 40mg QD. Plan last visit 05.24.21: Elevated IgE ? CMP, CBC, GAME Gastric ulcer ? repeat EGD to ensure healing Bowles?s esophagus ? continue PPI; PPI not a cause of diarrhea as diarrhea ons et prior to initiation of PPI. Diarrhea ? eating about 500kCal/day r/t decreased appetite. Start prednisone and Lomotil for one month. Reports that she continues to be fatigued with postprandial watery diarrhea occurring after each PO intake or will have issues with incontinence with coughing/sneezing. Reports periodic RLQ pain/discomfort but denies abdominal pain/cramping with intake or bowel movements. Taking Lomotil but this is not helping. ROS Const Constitutional: No fatigue, malaise, night sweats, weight change, sleep problems, abnormal sleep pattern or change in appetite ENT ENT: No difficulty swallowing, hoarseness or sore throat Cardio Cardiology: No chest pain at rest Gastro GI: No abdominal pain, belching, bloating, change in bowel habits, change in stool character, coffee ground emesis, constipation, cramping, heartburn, difficulty swallowing, feeling full early, excessive flatus, incontinent of stools, Vomiting blood/hematemesis, Blood in stool, loose stools, Black,tarry stools, nausea/dyspepsia, pain with swallowing, vomiting or other Musc Musculoskeletal: No joint pain Skin Skin: No yellowing of the eye or itchy eyes Neuro Neurology: No behavioral changes Psych Psychiatric: No abnormal sleep pattern, No anxiety, No behavioral changes, No change in appetite and No depression Endo Endocrine: No fatigue or weight change Aller/Imm Allergy/Immunologic: No itchy eyes Isaiah/Lymp Hematologic/Lymphatic: No easy bleeding or easy bruising Exam Const General: cooperative and comfortable Nutritional Appearance: average body habitus and well nourished [facility] Head: normal to inspection Ears: hearing grossly normal bilaterally Nose: external nose normal Face and sinus: normal facial exam Mouth: oral mucosae normal Throat: posterior oropharynx normal Eyes General: appearance normal, both eyes and all related structures Neck Neck: normal visual inspection Chest Chest palpation & inspection: normal inspection of the chest and normal palpatio n of entire chest wall Resp Effort & Inspection: normal respiratory effort Auscultation: Bilateral: Clear to Auscultation Cardio Palpation: normal PMI Rate: regular rate Rhythm: regular rhythm GI Inspection: normal to inspection Auscultation: normal bowel sounds Percussion: normal to percussion Palpation: no hepatosplenomegaly Skin General: no rashes or lesions noted Neuro General: patient alert Extrem General: normal to inspection Psych Affect: normal affect Quality Reporting Tobacco Screening ([facility] 138) Smoking Status: Current every day smoker Assessment and Plan Assessment and Plan (1) Diarrhea: ?Status:?Acute ? ? ? Orders:?Orders: ? Pancreatic Elastase, Fecal Today ? ? ? Comprehensive Metabolic Profil Today ? ? ? CRP Today ? ? ?F LDH Today ? ? ? CBC W/Diff, Automated Today ? ? ? Erythrocyte Sed Rate Today ? ? ? ZAIN Comprehensive Panel Today ? ? ? ANCA Today ? ? ? Celiac Disease Profile Today ? ? ? Immunoglobulins G/A/M/E Today ? ? ? TERA + Protein Elect, Serum Today ? ? ? Calprotectin, Stool Today ? ? ? CDIFF (PCR) Today ? ? ? Giardia Lamblia, Stool EIA Today ? ? ? Ova and Parasites 8623 Today ? ? ? ENTERIC PATHOGEN PANEL STOOL Today ? ? ? Stool Lactoferrin/WBC Today ? ? ? Allergen, Mini-Rast Today ? ? ? Amylase Today ? ? ? Lipase Today ? ? ? Gastrin, Serum Today ? ? ? Gastric Emptying Study Today ?Plan - Dr. Lane Friend, DO: We will check and see if she has hypergastrinemia as a cause of her diarrhea.? It is weird she is taking in more cheese products and it has been helping her diarrhea but she has not been gaining any weight.? Her weight is 108 and previously was 106.? Her BMI is still 19.? We will send biochemical profile for diseases such as celiac disease, autoimmune disease of the bowel, infectious diarrhea, exocrine pancreatic insufficiency, lymph and other inflammatory processes of the GI tract. (2) Barretts esophagus: ?Status:?Acute ? ? ? Orders:?Orders: ? Pancreatic Elastase, Fecal Today ? ? ? Comprehensive Metabolic Profil Today ? ? ? CRP Today ? ? ? LDH Today ? ? ? CBC W/Diff, Automated Today ? ? ? Erythrocyte Sed Rate Today ? ? ? ZAIN Comprehensive Panel Today ? ? ? ANCA Today ? ? ? Celiac Disease Profile Today ? ? ? Immunoglobulins G/A/M/E Today ? ? ? TERA + Protein Elect, Serum Today ? ? ? Calprotectin, Stool Today ? ? ? CDIFF (PCR) Today ? ? ? Giardia Lamblia, Stool EIA Today ? ? ? Ova and Parasites 8623 Today ? ? ? ENTERIC PATHOGEN PANEL STOOL Today ? ? ? Stool Lactoferrin/WBC Today ? ? ? Allergen, Mini-Rast Today ? ? ? Amylase Today ? ? ? Lipase Today ? ? ? Gastrin, Serum Today ? ? ? Gastric Emptying Study Today ?Plan - Dr. Lane Friend, DO: She is not on PPI for as I will not start that in till she has her gastrin level checked.? At that she will need PPI therapy once a day we will repeat her endoscopy in approximately a year and a half. (3) Gastric ulcer: ?Status:?Acute ? ? ? Orders:?Orders: ? Pancreatic Elastase, Fecal Today ? ? ? Comprehensive Metabolic Profil Today ? ? ? CRP Today ? ? ? LDH Today ? ? ? CBC W/Diff, Automated Today ? ? ? Erythrocyte Sed Rate Today ? ? ? ZAIN Comprehensive Panel Today ? ? ? ANCA Today ? ? ? Celiac Disease Profile Today ? ? ? Immunoglobulins G/A/M/E Today ? ? ? TERA + Protein Elect, Serum Today ? ? ? Calprotectin, Stool Today ? ? ? CDIFF (PCR) Today ? ? ? Giardia Lamblia, Stool EIA Today ? ? ? Ova and Parasites 8623 Today ? ? ? ENTERIC PATHOGEN PANEL STOOL Today ? ? ? Stool Lactoferrin/WBC Today ? ? ? Allergen, Mini-Rast Today ? ? ? Amylase Today ? ? ? Lipase Today ? ? ? Gastrin, Serum Today ? ? ? Gastric Emptying Study Today ?Plan - Dr. Lane Friend, DO: She will have repeat upper endoscopy in approximately 2 months to evaluate a gastric ulcer.? She completed a course of Carafate therapy for 2 months and PPI therapy twice daily for 2 months. (4) Elevated IgE level: ?Status:?Acute ? ? ? Orders:?Orders: ? Pancreatic Elastase, Fecal Today ? ? ? Comprehensive Metabolic Profil Today ? ? ? CRP Today ? ? ? LDH Today ? ? ? CBC W/Diff, Automated Today ? ? ? Erythrocyte Sed Rate Today ? ? ? ZAIN Comprehensive Panel Today ? ? ? ANCA Today ? ? ? Celiac Disease Profile Today ? ? ? Immunoglobulins G/A/M/E Today ? ? ? TERA + Protein Elect, Serum Today ? ? ? Calprotectin, Stool Today ? ? ? CDIFF (PCR) Today ? ? ? Giardia Lamblia, Stool EIA Today ? ? ? Ova and Parasites 8623 Today ? ? ? ENTERIC PATHOGEN PANEL STOOL Today ? ? ? Stool Lactoferrin/WBC Today ? ? ? Allergen, Mini-Rast Today ? ? ? Amylase Today ? ? ? Lipase Today ? ? ? Gastrin, Serum Today ? ? ? Gastric Emptying Study Today ?Nuria - Dr. Lane Friend, DO: Her IgE level is coming down.? I am not sure if this is associated with eosinophilic gastroenteritis.? The biopsies of the GI tract did not show high amount eosinophils.? She also did not respond well to empiric steroid therapy or budesonide therapy. I have re-examined the patient. There are no clinical changes since date of exam.
[2021-08-30] MEDS: Lactated Ringers 1,000 ML 15 ML IV (06:52)
--- NOTE | 2021-08-30 07:30 | IMM_PTH ---
PATIENT: BECKI MELENDEZ LOC: [facility] U#:[id number] AGE/SX: 71/F ROOM: RE08/30/[address]: Dr. Domingo Forbes DO : 1950 BED: DIS: 08/30/2021 SPEC #: [id number] RECD: 08/30/21 15:05 STATUS: YENNY REAriel #: [id number] LICHA: 08/30/21 07:[address]: Domingo Forbes DEPT: IMMUNOHISTOCHEMISTRY RECD BY: Altagracia Rocha ENTERED: 08/30/21 15:05 SP TYPE: IMMUNO OT DR: Becka Pacheco, VALVE FITTER-C [facility] Tissues: B - Stomach, NOS C - Esophageal mucous membrane Procedures: H Pylori (initial) P53 (initial) KI-67 (add) PHYSICIAN & INSTITUTION [address] [address] SPECIMEN INFORMATION: Tissue Source: B ? Gastric antrum, C ? Distal esophagus biopsy Clinical Info: Bowles?s esophagus, diarrhea, elevated IgE, gastric ulcer Specimen Number: [id number] B & C CPT code: 38481 x2, 69973 METHODOLOGY: Deparaffinized sections of prefer/formalin-fixed tissue or PAP/DQ stained slides are incubated with monoclonal/polyclonal antibodies/oligonucleotide probes. Localization is made via biotin free immunoperoxidase method. Appropriate controls are performed and reacted as expected. Results on target cell population are indicated in the following table: RESULTS: ANTIBODY / CLONE RESULT Block B H Pylori (polyclonal) negative Block C P53 (DO-7) negative Ki-67 (30-9) positive, very low These tests were developed and their performance characteristics determined by [facility]. They may not have been cleared or approved by the U.S. Food and Drug Administration. The FDA has determined that such clearance or approval is not necessary. The above immunohistochemical/dualISH markers are ordered and reviewed by the Pathologist. INTERPRETATION: B. Gastric antrum, biopsy: Negative for Helicobacter pylori organisms. C. Distal esophagus, biopsy: Negative for dysplasia. SJ:padmini 09/01/2021
--- NOTE | 2021-08-30 07:30 | EGD_PTH ---
PATIENT: BECKI MELENDEZ LOC: EN U#:[id number] AGE/SX: 71/F ROOM: RE08/30/[address]: Dr. Domingo Forbes DO : 1950 BED: DIS: 08/30/2021 SPEC #: [id number] RECD: 08/30/21 10:32 STATUS: YENNY KACIE #: [id number] LICHA: 08/30/21 07:[address]: Domingo Forbes DEPT: SURGICAL PATHOLOGY RECD BY: Joselyn Robledo ENTERED: 08/30/21 11:33 SP TYPE: EGD BIOPSY OT DR: Becka Pacheco, INSPECTION AND TESTING SUPERVISOR-C [facility] Tissues: A - Duodenum, NOS B - Gastric mucous membrane C - Esophagus, NOS Procedures: Special Stain Group II Surgery Specimen Level IV Alcian Blue/PAS (control) HEADER OPERATION: EGD with biopsies (MAC) PRE-OP DIAGNOSIS: Bowles?s esophagus, diarrhea, elevated IgE, gastric ulcer TISSUE SUBMITTED: A ? Duodenum biopsy, B ? Gastric antrum biopsy for H. pylori and path, C ? Distal esophagus biopsy MICROSCOPIC DIAGNOSIS A. Duodenum, biopsy: Fragments of duodenal mucosa with mild Grayson gland hyperplasia. B. Gastric antrum, biopsy: Mild gastritis. See microscopic description and comment. C. Distal esophagus, biopsy: Fragment of gastroesophageal mucosa with intestinal metaplasia (goblet cell metaplasia), consistent with Bowles?s esophagus. Mild chronic inflammation. Negative for dysplasia. See comment. SJ:padmini 08/31/2021 COMMENT B. The results of immunohistochemistry for Helicobacter pylori will be reported separately ([id number]). C. Alcian blue/PAS stain with matched control is used in the evaluation of the specimen. Immunohistochemistry ([id number]) for P53 and Ki-67 will be performed and results will be reported separately. MICROSCOPIC DESCRIPTION Slides are reviewed. B. The specimen shows fragments of gastric mucosa with chronic inflammatory cell infiltrates in the lamina propria consisting of lymphocytes and plasma cells, consistent with mild chronic gastritis. GROSS DESCRIPTION A - Received in fixative is one container labeled with the patient's name and designated duodenum biopsy. The specimen consists of multiple irregular fragments of light gamez soft tissue that in aggregate measure 1 x 0.6 x 0.1 cm. The specimen is totally submitted in one cassette. B - Received in fixative is one container labeled with the patient's name and designated gastric antrum. The specimen consists of multiple irregular fragments of light gamez soft tissue that in aggregate measure 1 x 0.7 x 0.1 cm. The specimen is totally submitted in one cassette. C - Received in fixative is one container labeled with the patient's name and designated distal esophagus biopsy. The specimen consists of multiple irregular fragments of light gamez soft tissue that in aggregate measure 1 x 0.6 x 0.1 cm. The specimen is totally submitted in one cassette. / SEAN:padmini 08/30/2021 TC:3 CPT: 58220 x3, 81891
--- NOTE | 2021-08-30 08:06 | OP.EGD_ITS ---
Patient Name: Jazmyn Dickey Procedure Date: 08/30/2021 7:40 AM Date of : 1950 Age: 71 Procedure: Upper GI endoscopy Indications: Epigastric abdominal pain, Heartburn, Failure to respond to medical treatment Providers: Domingo Forbes DO Referring MD: Chely Song [facility] Medicines: Monitored Anesthesia Care Patient Profile: This is a 71 year old female. Refer to note in patient chart for documentation of history and physical. Patient has symptoms of chronic abdominal cramping and chronic dyspepsia. Complications: No immediate complications. Procedure: Pre-Anesthesia Assessment: - Prior to the procedure, a History and Physical was performed, and patient medications and allergies were reviewed. The patient is competent. The risks and benefits of the procedure and the sedation options and risks were discussed with the patient. All questions were answered and informed consent was obtained. Patient identification and proposed procedure were verified by the physician in the pre-procedure area. Mental Status Examination: alert and oriented. Airway Examination: normal oropharyngeal airway and neck mobility. Respiratory Examination: clear to auscultation. CV Examination: normal. Prophylactic Antibiotics: The patient does not require prophylactic antibiotics. Prior Anticoagulants: The patient has taken no previous anticoagulant or antiplatelet agents. ASA Grade Assessment: II - A patient with mild systemic disease. After reviewing the risks and benefits, the patient was deemed in satisfactory condition to undergo the procedure. The anesthesia plan was to use moderate sedation / analgesia (conscious sedation). Immediately prior to administration of medications, the patient was re-assessed for adequacy to receive sedatives. The heart rate, respiratory rate, oxygen saturations, blood pressure, adequacy of pulmonary ventilation, and response to care were monitored throughout the procedure. The physical status of the patient was re-assessed after the procedure. After obtaining informed consent, the endoscope was passed under direct vision. Throughout the procedure, the patient's blood pressure, pulse, and oxygen saturations were monitored continuously. The gastroscope was introduced through the mouth, and advanced to the second part of duodenum. The upper GI endoscopy was accomplished without difficulty. The patient tolerated the procedure well. Scope In: 7:52:57 AM Scope Out: 8:01:45 AM Total Procedure Duration Time 0 hours 8 minutes 48 seconds Findings: There were esophageal mucosal changes secondary to established short-segment Bowles's disease present in the lower third of the esophagus. The maximum longitudinal extent of these mucosal changes was 2 cm in length. Mucosa was biopsied with a cold forceps for histology in a targeted manner at intervals of 1 cm in the lower third of the esophagus. Verification of patient identification for the specimen was done. Estimated blood loss was minimal. Patchy mildly erythematous mucosa without bleeding was found in the gastric antrum. Biopsies were taken with a cold forceps for histology. Verification of patient identification for the specimen was done. Estimated blood loss was minimal. Patchy mild inflammation characterized by erosions and friability was found in the second portion of the duodenum. Biopsies were taken with a cold forceps for histology. Verification of patient identification for the specimen was done. Estimated blood loss was minimal. Impression: - Esophageal mucosal changes secondary to established short-segment Bowles's disease. Biopsied. - Erythematous mucosa in the antrum. Biopsied. - Duodenitis. Biopsied. Recommendation: - Discharge patient to home. - Resume previous diet. - Continue present medications. - Await pathology results. Procedure Code(s): --- Professional --- 81169, Esophagogastroduodenoscopy, flexible, transoral; with biopsy, single or multiple CPT copyright 2017 [employer]. All rights reserved. The codes documented in this report are preliminary and upon shovel handle assembler review may be revised to meet current compliance requirements. Domingo Forbes DO 08/30/2021 8:06:11 AM This report has been signed electronically. Number of Addenda: 1 Note Initiated On: 08/30/2021 7:40 AM Addendum Number: 1 Addendum Date: 12/19/2021 6:20:57 AM MAC was used as sedation for this procedure. Domingo Forbes DO 12/19/2021 6:21:06 AM This report has been signed electronically.
--- NOTE | 2021-08-30 08:06 | OP.CCLET_ITS ---
12/19/2021 Chely Song [facility] Re : Upper GI endoscopy procedure for Jazmyn Zuñiga [facility] This procedure was performed on Monday, August 30, 2021. My impressions and recommendations are as follows: Impressions : - Esophageal mucosal changes secondary to established short-segment Bowles's disease. Biopsied. - Erythematous mucosa in the antrum. Biopsied. - Duodenitis. Biopsied. Recommendations : - Discharge patient to home. - Resume previous diet. - Continue present medications. - Await pathology results. My findings are described in the full procedure note, which is enclosed. If I can be of further assistance, please feel free to contact me at . Sincerely, Domingo Forbes, 08/30/2021 8:06:11 AM This report has been signed electronically.
== END 2021-08-30 09:05 | disposition home or self-care (01) ==
LOC: EN 06:06 → AC 06:07
PROVIDERS: Visit Provider Internal Medicine Gastroenterology
PROC: 0DJ08ZZ Inspection of Upper Intestinal Tract, Via Natural or Artificial Opening Endoscopic (ICD-10-PCS; CPT 43235; principal; 2021-08-30 07:25)
DX: K22.70 Barrett's esophagus without dysplasia (principal); J44.9 Chronic obstructive pulmonary disease, unspecified; K31.89 Other diseases of stomach and duodenum; K29.50 Unspecified chronic gastritis without bleeding; F17.200 Nicotine dependence, unspecified, uncomplicated; I10 Essential (primary) hypertension; E78.5 Hyperlipidemia, unspecified; I25.10 Atherosclerotic heart disease of native coronary artery without angina pectoris; R63.4 Abnormal weight loss; Z79.899 Other long term (current) drug therapy; Z68.20 Body mass index [BMI] 20.0-20.9, adult
CPT/HCPCS: 43239; 83630; 83993; 87177; 87209; 87329; 87506; 88305; 88313; 88341; 88342; J7120; J2405

== ENCOUNTER → 2021-09-13 | Outpatient (CLI) | payer MEDICARE, MEDICAID, SELFPAY ==
--- NOTE | 2021-09-13 10:00 | BI_ITS ---
MAMMOGRAPHY - BILATERAL SCREENING REASON FOR EXAM: Female, 71 years old. Routine annual screening examination. PERTINENT HISTORY: Aunt with breast cancer. Remote right excisional breast biopsy. TECHNIQUE: Digital bilateral breast liz (3D mammographic acquisition) in the CC and MLO projections. 2-D mediolateral oblique (MLO) and craniocaudad (CC) views of both breasts were obtained. CAD: Full Field Digital Mammography with Computer Added Detection was performed. COMPARISON: Comparison is made with prior study dated 09/06/2020 and 12/31/2018. FINDINGS: Breast Composition: There are scattered areas of fibroglandular density. There are no dominant masses or suspicious calcifications. Stable asymmetry of breast tissue where more breast tissue is seen in the upper-outer quadrant left breast as compared to the right side. A tissue clip marker is once again seen in the upper lateral aspect of the right breast. No other significant abnormalities are identified. There has been no significant change since the prior study. BI/SCRN MAMM (CAD)W/LIZ BILAT IMPRESSION: Stable bilateral screening mammogram. Yearly follow-up mammogram recommended. (A) ASSESSMENT CATEGORY: BIRADS Category 2: Benign. A letter regarding these results will be sent to the patient by the facility within 30 days. Approximately 10% of breast cancers are not detected by mammography. A normal mammogram should not delay biopsy of a clinically suspicious abnormality. [id number] Electronically Signed: Eyal Roa MD at 11:08 EDT ,
== END | disposition home or self-care (01) ==
LOC: OPBI 09:56
PROVIDERS: Visit Provider Nurse Practitioner Adult Health
DX: Z12.31 Encounter for screening mammogram for malignant neoplasm of breast (principal)
CPT/HCPCS: 77063; 77067

== ENCOUNTER → 2022-04-19 | Outpatient (CLI) | payer MEDICARE, MEDICAID, SELFPAY ==
[2022-04-19 10:25] LABS: Insulin 7.2 mU/L (2.6-37.6)
[2022-04-19 10:44] LABS: Anion Gap 9 (5-15); BUN 11 mg/dL (7-18); BUN/Creat Ratio 14.2 RATIO (10-20); Chloride 101 mmol/L (98-107); Creatinine, Serum 0.78 mg/dL (0.55-1.02); EST Glomerular Filtration Rate 78 mL/min (>60); Est Glom Filt Rate - Afr Amer 94 mL/min (>60); Glucose 133 mg/dL (74-106); Potassium 4.3 mmol/L (3.5-5.1); Sodium Level 130 mmol/L (136-145)
[2022-04-20 19:26] LABS: C-Peptide 2.4 ng/mL (1.1-4.4)
== END | disposition home or self-care (01) ==
DX: E87.1 Hypo-osmolality and hyponatremia (principal); E16.2 Hypoglycemia, unspecified
CPT/HCPCS: 36415; 80048; 82533; 83525; 84681

== ENCOUNTER → 2022-08-08 | Outpatient (CLI) | payer MEDICARE, MEDICAID, SELFPAY ==
--- NOTE | 2022-08-08 07:31 | CT_ITS ---
EXAM: CT CHEST, LUNG CANCER SCREENING WITHOUT INTRAVENOUS CONTRAST CLINICAL INDICATION: NICOTINE DEPENDENCE TECHNIQUE: Helically acquired images were obtained of the chest without intravenous contrast using low dose (LDCT) lung cancer screening protocol. This CT exam was performed using one or more of the following dose reduction techniques: automated exposure control, adjustment of the mA and/or kV according to patient size, and/or use of iterative reconstruction technique. COMPARISON: 03/06/2019 FINDINGS: LUNGS AND PLEURAL SPACES: There is a noncalcified nodule in the superior segment of the left lower lobe that measures 1.0 x 1.1 cm suspicious for malignancy. There is an old healed left-sided rib fracture. No pleural effusion or thickening. No pneumothorax. HEART: Unremarkable. Heart size is normal. No pericardial effusion. No significant coronary artery calcifications. MEDIASTINUM: Unremarkable. No mediastinal or hilar adenopathy. Esophagus is unremarkable. No hiatal hernia. THYROID: Unremarkable. No thyroid lesions. BONES/JOINTS: See above. VASCULATURE: Unremarkable. Thoracic aorta is non-dilated. LYMPH NODES: Unremarkable. No enlarged lymph nodes. CT/Low Dose CT Lung Screening IMPRESSION: Noncalcified nodule in the superior segment of the left lower lobe suspicious for malignancy. Lung-RADS score: 4B - Very Suspicious. Recommend chest CT with or without contrast, PET/CT and/or tissue sampling depending on the probability of malignancy and comorbidities. PET/CT may be used when there is a >=8 mm solid component. For new large nodules that develop on an annual repeat screening CT, a 1 month LDCT may be recommended to address potentially infectious or inflammatory conditions. Electronically Signed: Christopher Hunt MD at 23:50 EDT ,
[2022-08-08 09:13] LABS: Anion Gap 5 (5-15); BUN 11 mg/dL (7-18); BUN/Creat Ratio 13.7 RATIO (10-20); Calcium,Total 9.2 mg/dL (8.5-10.1); Chloride 106 mmol/L (98-107); Cholesterol 231 mg/dL (200); EST Glomerular Filtration Rate 75 mL/min (>60); Est Glom Filt Rate - Afr Amer 91 mL/min (>60); Glucose 111 mg/dL (74-106); High Density Lipoprotein 80 mg/dL; Potassium 4.8 mmol/L (3.5-5.1); Sodium Level 135 mmol/L (136-145); Triglycerides 84 mg/dL; Very Low Density Lipoprotein 17 mg/dL (5-40)
== END | disposition home or self-care (01) ==
LOC: CT 07:29
PROVIDERS: Referring Provider Nurse Practitioner Family; Visit Provider Nurse Practitioner Family
DX: F17.210 Nicotine dependence, cigarettes, uncomplicated (principal); E78.2 Mixed hyperlipidemia; E78.1 Pure hyperglyceridemia
CPT/HCPCS: 36415; 71271; 80048; 80061

== ENCOUNTER → 2022-08-23 | Outpatient (CLI) | payer MEDICARE, MEDICAID, SELFPAY ==
--- NOTE | 2022-08-23 12:33 | ECHODONC_ITS ---
Version 2 Reason For Study: Pre Op Procedure This was a 2D Doppler, Color Flow transthoracic echocardiogram. Myocardial strain analysis was performed in this exam to aid in the assessment of cardiac function. Exam performed in department. Left Ventricle Normal LV size. Left ventricular systolic function is normal. The estimated ejection fraction is 65 %. Stage 1 diastolic dysfunction. No regional wall motion abnormalities noted. Right Ventricle Normal RV size. Normal systolic function. Atria Normal left atrium. Normal right atrium. Mitral Valve There is mild mitral annular calcification. Aortic Valve Trisinus/trileaflet aortic valve. Pulmonic Valve The pulmonic valve is not well visualized. Great Vessels Calcified aortic root. The pulmonary artery is normal size. Normal inferior vena cava. Pericardium/Pleural No pericardial effusion. MMode/2D Measurements & Calculations LVIDd: 4.8 cm IVSd: 0.97 cm Ao root diam: 3.0 cm LVIDs: 3.3 cm LVPWd: 0.74 cm LA dimension: 3.7 cm RVDd: 2.9 cm FS: 32.0 % LAV(MOD-bp): 51.2 ml LVAd ap4: 25.8 cm2 SV(MOD-sp4): 44.4 ml LAV(MOD-bp) Indexed: 31.1 ml/m2 LVLd ap4: 6.8 cm LAV(MOD-sp2): 57.8 ml EDV(MOD-sp4): 78.9 ml LAV(MOD-sp4): 37.5 ml EDV(sp4-el): 82.8 ml LVAs ap4: 15.5 cm2 LVLs ap4: 5.9 cm ESV(MOD-sp4): 34.5 ml ESV(sp4-el): 34.6 ml EF(MOD-sp4): 56.3 % EF(sp4-el): 58.2 % SV(sp4-el): 48.2 ml LA A4 area: 14.4 cm2 RA A4 area: 11.0 cm2 Time Measurements MV dec time: 0.23 sec Doppler Measurements & Calculations MV E max sarkis: 87.4 cm/sec Lat Peak E' Sarkis: 7.5 cm/sec Med Peak E' Sarkis: 6.5 cm/sec MV A max sarkis: 116.2 cm/sec E/E' lat: 11.7 E/E' med: 13.5 MV E/A: 0.75 MV V2 max: 136.6 cm/sec MV P1/2t max sarkis: 104.1 cm/sec Ao V2 max: 133.2 cm/sec MV max P.5 mmHg MV P1/2t: 86.5 msec Ao max P.1 mmHg MV V2 mean: 74.8 cm/sec MV dec slope: 352.3 cm/sec2 Ao V2 mean: 89.6 cm/sec MV mean P.6 mmHg Ao mean P.7 mmHg MV V2 VTI: 33.8 cm MVA(P1/2t): 2.5 cm2 Ao V2 VTI: 29.3 cm AV (velocity ratio): 0.80 LV V1 max: 106.7 cm/sec PA V2 max: 80.3 cm/sec LV V1 max P.6 mmHg LV V1 mean P.2 mmHg LV V1 mean: 68.7 cm/sec LV V1 VTI: 23.5 cm ECHO/ONC Echo Complete Interpretation Summary Normal LV size. Left ventricular systolic function is normal. The estimated ejection fraction is 65 %. Stage 1 diastolic dysfunction. There is mild mitral annular calcification. The global longitudinal strain is normal. The global longitudinal strain = -20. 1 % (normal). Ordering Physician: Won Larkin Referring Physician: Won Larkin Performed By: Nba Nina RCS
== END | disposition home or self-care (01) ==
LOC: CVS 12:30
PROVIDERS: Referring Provider Internal Medicine Medical Oncology; Visit Provider Internal Medicine Medical Oncology
DX: Z98.890 Other specified postprocedural states (principal); R91.1 Solitary pulmonary nodule; R94.39 Abnormal result of other cardiovascular function study
CPT/HCPCS: 93306; 93356

== ENCOUNTER → 2022-08-24 | Outpatient (CLI) | payer MEDICARE, MEDICAID, SELFPAY ==
--- NOTE | 2022-08-25 11:51 | PFTCOMP ---
COMPLETE PULMONARY FUNCTION TEST INTERPRETATION Brief HPI: Patient is a 72-year-old female, currently under the care of Dr. Larkin, who presents to [facility] for complete pulmonary function tests secondary to diagnosis of lung nodule. Respiratory therapist reports good effort and reproducible results. Interpretation: Forced expiration spirometry shows a moderate large airways obstructive ventilatory defect with an FEV1 of 69% predicted. There is no significant bronchodilator response by strict ATS criteria. Spirograms are of good quality and plateau slowly, indicating slowly emptying areas of the lungs. The respiratory flow volume loop shows decreased expiratory flow rates at all lung volumes consistent with airway obstruction. Lung volumes by body plethysmography show a normal total lung capacity at 5.21 L, 104% predicted. All other lung volumes are within normal limits. Diffusion capacity by carbon monoxide is normal at 77% predicted. The airway resistance is slightly elevated. Compared to previous pulmonary function tests from 04/21/2014, there is been a significant improvement in the DLCO by 42%. Impression: Irreversible moderate large airways obstructive ventilatory defect with some improvement compared to previous study
== END | disposition home or self-care (01) ==
LOC: PSN 10:20
PROVIDERS: Referring Provider Internal Medicine Medical Oncology; Visit Provider Internal Medicine Medical Oncology
DX: R91.1 Solitary pulmonary nodule (principal); R06.09 Other forms of dyspnea
CPT/HCPCS: 94060; 94726; 94729

== ENCOUNTER → 2022-09-05 | Outpatient (CLI) | payer MEDICARE, SELFPAY ==
--- NOTE | 2022-09-05 12:17 | MRI_ITS ---
INDICATION: ABNORMAL PET SCAN EXAMINATION: MRI - MR Spine Thoracic WO/W Contrast TECHNIQUE: Multiplanar and multisequence MR images of the thoracic spine. IV Contrast Dosage and Agent: None. COMPARISON: PET/CT August 21, 2022. FINDINGS: VERTEBRAE: No fracture. Mild acute anterior endplate degenerative change in the lower thoracic spine. No aggressive osseous lesion. Chronic mild anterior vertebral height loss in the lower thoracic spine with mildly exaggerated kyphosis DISCS: Small posterior disc bulges in the lower thoracic spine with minimal spinal canal narrowing. No evidence of cord compression. CORD: Unremarkable in signal and morphology. No abnormal intra or extramedullary enhancement SOFT TISSUES: Posterior left lung 8mm nodule with suggestion of mild peripheral enhancement. MRI/Spine Thoracic W/WO Contrast IMPRESSION: Mild lower thoracic spondylosis. No evidence of aggressive osseous lesion. Posterior left lung 8mm nodule better seen on recent PET/CT. Electronically Signed: Cleve Castrejon MD at 5:39 EDT ,
== END | disposition home or self-care (01) ==
PROVIDERS: Referring Provider Internal Medicine Hematology & Oncology; Visit Provider Internal Medicine Hematology & Oncology
DX: R93.89 Abnormal findings on diagnostic imaging of other specified body structures (principal)
CPT/HCPCS: 72157; A9575

== ENCOUNTER → 2022-09-19 | Outpatient (CLI) | payer MEDICARE, MEDICAID, SELFPAY ==
[2022-09-19] VITALS (13 sets, daily range): BP systolic 120–164; BP diastolic 66–113; PULSE 76–92; RESP 16–24; TEMP 36.9; O2SAT 92–98; BMI 21.6
--- NOTE | 2022-09-19 07:44 | CT_ITS ---
PROCEDURE: CT GUIDED CORE NEEDLE BIOPSY OF A left lower lobe LUNG LESION INDICATION: Female, 72 years old. LEFT LOWER LUNG NODULE PHYSICIAN: Dr. Janina Wiley CONSENT: Written informed consent was obtained having explained the risks, benefits and alternatives in detail with the patient who accepted the risks and agreed to proceed. Laboratory review and clinical assessment was performed. CONSCIOUS SEDATION PROTOCOL: The Drugs used were: 2 mg Versed, IV., and 50 mcg Fentanyl, IV. The sedation time was: 22 minutes. Conscious sedation was started at 9:18 AM and terminated at 9:40 AM. The conscious sedation protocol was independently monitored. RADIATION DOSAGE (If Supplied By Facility): CTDIvol = ( 9.92 ) mGy, DLP = ( 199.79 ) mGycm Individualized dose optimization techniques were used for this CT. TECHNIQUE: The patient was placed in the prone position. A noncontrast CT was performed to localize the lesion in the superior segment of the left lower lobe . The skin surface was prepped and draped in a sterile fashion. 1% lidocaine was used for local anesthesia. Using CT guidance, a 20-gauge coaxial biopsy device was advanced to the periphery of the lesion. A total of 7 core specimens were obtained. The specimens were placed in a formalin solution. A post procedure CT demonstrated no adverse sequelae or pneumothorax. The patient tolerated the procedure well without adverse event. A negative biopsy does not exclude malignancy. Further imaging or clinical followup based on patient condition and degree of clinical suspicion for malignancy. Suggest rebiopsy, if biopsy results do not match with clinical scenario. CT/Biopsy/Inj or Needle Placement IMPRESSION: 1. CT directed core needle biopsy of the nodule in the superior segment of the left lower lobe using CT image guidance with image documentation as described. Pathology results are pending. 2. Conscious Sedation protocol utilized with independent monitoring. Electronically Signed: Eyal Rao MD at 10:36 EDT ,
[2022-09-19 07:58] LABS: Absolute Lymphocyte Count 2.98 X10^3/uL (0.83-4.51); Absolute Neutrophil Count 2.5 X10^3/uL (2.0-7.7); Basophil# 0.08 X10^3/uL; Basophil% 1.2 % (0-1); Eosinophil# 0.19 X10^3/uL; Eosinophils% 2.9 % (0-5); Hematocrit 50.1 % (37-47); Hemoglobin 16.6 g/dL (12.0-15.0); Lymphocyte # 2.98 X10^3/ul (0.83-4.51); Lymphocyte % 45.5 % (19-41); Mean Corp Hgb Conc 33.1 g/dL (32-36); Mean Corpuscular Hgb 31.9 pg (27.0-32.0); Mean Corpuscular Volume 96.3 fL (81-99); Mean Platelet Vol. 9.4 fl (6.2-12.0); Monocyte# 0.76 X10^3/uL; Monocyte% 11.6 % (0-10); NRBC Flagged by Analyzer 0 % (0-5); Neutrophil # 2.53 X10^3/uL (2.7-7.7); Neutrophil % 38.6 % (47-70); Platelet Count 251 K/mm3 (150-450); RBC Distribution Width CV 12.3 % (11.6-14.6); RBC Distribution Width SD 44.2 fl (35.1-43.9); White Blood Count 6.6 K/mm3 (4.4-11.0)
[2022-09-19 08:18] LABS: International Normalized Ratio 0.9; Prothrombin Time (Protime)PT. 12.5 SECONDS (11.7-14.9)
[2022-09-19] MEDS: Midazolam 2 MG/2 ML Syringe IV (09:18)
[2022-09-19] MEDS: fentaNYL 100 MCG/2 ML Ampul IV (09:20)
--- NOTE | 2022-09-19 09:30 | ASPIGT_PTH ---
PATIENT: BECKI MELENDEZ LOC: CT U#:[id number] AGE/SX: 72/F ROOM: RE09/19/[address]: Dr. Won Larkin MD : 1950 BED: DIS: 09/19/2022 SPEC #: [id number] RECD: 09/19/22 09:54 STATUS: YENNY REAriel #: [id number] LICHA: 09/19/22 09:[address]: Won Larkin DEPT: SURGICAL PATHOLOGY RECD BY: Joselyn Robledo ENTERED: 09/19/22 09:55 SP TYPE: ASP RAD OTHR DR: Mirian Ruiz, TEST DEVELOPER-C [facility] Tissues: Lung, NOS Procedures: FNA Specimen Adequacy Special Stain Group II Surgery Specimen Level IV Imprint (control) HEADER OPERATION: CT-guided left lung biopsy PRE-OP DIAGNOSIS: Lung nodule TISSUE SUBMITTED: Lung 20-gauge x6 MICROSCOPIC DIAGNOSIS Left lung, CT-guided core biopsy: Fragments of benign lung parenchymal tissue, negative for malignancy. See comment. SEAN:padmini 09/20/2022 COMMENT The specimen is evaluated at the time of biopsy by Dr. Wills. Immediate Evaluation = Negative for malignant cells. Correlation with clinical, radiologic findings and appropriate follow up are necessary. MICROSCOPIC DESCRIPTION Slides are reviewed. GROSS DESCRIPTION Received in fixative is one container labeled with the patient's name and designated left lung. The specimen consists of a few minute fragments of gamez soft tissue measuring in aggregate 0.5 x <0.1 x <0.1 cm. The specimen is totally submitted in one cassette. Three touch imprints are prepared at the time of core biopsy. / Mario 09/19/2022 TC:5 CPT: 06885, 33149
[2022-09-19] MEDS: Lidocaine 2% (20 ml mdv) 20 ML Vial INFILT (09:34)
--- NOTE | 2022-09-19 09:45 | RAD_ITS ---
STUDY: X-RAY CHEST REASON FOR EXAM: Female, 72 years old. Post lung biopsy -- Immediately post lung biopsy TECHNIQUE: AP and aspiration expiration views. COMPARISON: Comparison is made with prior study dated June 09, 2019. FINDINGS: The patient is status post left lung biopsy. There is evidence of a 10% left apical pneumothorax on the immediate post left lung biopsy radiographs. The patient is asymptomatic. RAD/Chest Insp/Exp 2 View IMPRESSION: 10% left apical pneumothorax on the immediate post left lung biopsy radiographs. The patient is asymptomatic. A repeat examination will be performed. Electronically Signed: Eyal Roa MD at 10:12 EDT ,
[2022-09-19] MEDS: 0.9% Saline Lock 10 ML Syringe IV (09:49)
--- NOTE | 2022-09-19 11:50 | RAD_ITS ---
INDICATION: 2 hour post lung biopsy -- 2 hours post lung biopsy EXAMINATION/TECHNIQUE: X-RAY - XR Chest 2 Views COMPARISON: 09/19/2022 at 9:49 AM. FINDINGS: LINES/DEVICES: None. LUNGS: Left pneumothorax approximately 10-15% volume is not significant change compared to the earlier study. No consolidation. MEDIASTINUM: Unremarkable. CARDIAC SILHOUETTE: Not enlarged. BONES AND SOFT TISSUES: Calcification overlying the base of the neck on the left unchanged possibly calcified thyroid nodule. RAD/Chest Insp/Exp 2 View IMPRESSION: Left pneumothorax stable approximately 15%. Electronically Signed: Alicja Silverio MD at 18:53 EDT ,
== END | disposition home or self-care (01) ==
PROVIDERS: Referring Provider Internal Medicine Medical Oncology; Visit Provider Internal Medicine Medical Oncology
DX: Z01.818 Encounter for other preprocedural examination (principal); R91.1 Solitary pulmonary nodule; R42 Dizziness and giddiness; Z98.890 Other specified postprocedural states; R07.89 Other chest pain
CPT/HCPCS: 32408; 36415; 71046; 77012; 85025; 85610; 85730; 88172; 88305; 88313; 99156; J7050; A4216; C2613

== ENCOUNTER → 2022-11-23 | Outpatient (CLI) | payer MEDICARE, MEDICAID, SELFPAY ==
[2022-11-23 12:43] LABS: AST(SGOT) 17 U/L (15-37); Alanine Aminotransfer ALT/SGPT 18 U/L (13-56); CPK Total, Creatine Kinase 96 U/L (26-192); Cholesterol 182 mg/dL (200); High Density Lipoprotein 74 mg/dL; Triglycerides 93 mg/dL; Very Low Density Lipoprotein 19 mg/dL (5-40)
== END | disposition home or self-care (01) ==
LOC: MTLAB 09:57
PROVIDERS: Referring Provider Internal Medicine Cardiovascular Disease; Visit Provider Internal Medicine Cardiovascular Disease
DX: I25.10 Atherosclerotic heart disease of native coronary artery without angina pectoris (principal); E78.5 Hyperlipidemia, unspecified; R07.89 Other chest pain
CPT/HCPCS: 36415; 80061; 82550; 84450; 84460

== ENCOUNTER → 2023-10-30 | Outpatient (CLI) | payer MEDICARE, MEDICAID, SELFPAY ==
[2023-10-30 12:26] LABS: Absolute Lymphocyte Count 2.05 X10^3/uL (0.83-4.51); Absolute Neutrophil Count 3.9 X10^3/uL (2.0-7.7); Basophil# 0.08 X10^3/uL; Basophil% 1.2 % (0-1); Eosinophil# 0.06 X10^3/uL; Eosinophils% 0.9 % (0-5); Hematocrit 44.9 % (37-47); Hemoglobin 15.6 g/dL (12.0-15.0); Lymphocyte # 2.05 X10^3/ul (0.83-4.51); Mean Corp Hgb Conc 34.7 g/dL (32-36); Mean Corpuscular Hgb 31.8 pg (27.0-32.0); Mean Corpuscular Volume 91.6 fL (81-99); Mean Platelet Vol. 9.6 fl (6.2-12.0); Monocyte# 0.68 X10^3/uL; NRBC Flagged by Analyzer 0 % (0-5); Neutrophil # 3.94 X10^3/uL (2.7-7.7); Neutrophil % 57.6 % (47-70); Platelet Count 284 K/mm3 (150-450); RBC Distribution Width CV 12.2 % (11.6-14.6); White Blood Count 6.8 K/mm3 (4.4-11.0)
[2023-10-30 12:50] LABS: AST(SGOT) 21 U/L (15-37); Alanine Aminotransfer ALT/SGPT 17 U/L (13-56); Albumin, Serum 3.6 g/dL (3.2-5.0); Alkaline Phosphatase 71 U/L (45-117); Anion Gap 9 (5-15); BUN 11 mg/dL (7-18); BUN/Creat Ratio 15.4 RATIO (10-20); Calcium,Total 9.5 mg/dL (8.5-10.1); Chloride 99 mmol/L (98-107); Creatinine, Serum 0.71 mg/dL (0.55-1.02); EST Glomerular Filtration Rate 86 mL/min (>60); Est Glom Filt Rate - Afr Amer 104 mL/min (>60); Globulin 3.7 g/dL (2.2-4.2); Glucose 121 mg/dL (74-106); Protein, Total 7.3 g/dL (6.4-8.2); Sodium Level 130 mmol/L (136-145); Troponin-I HS 7 pg/mL (3.0-54.0)
[2023-10-31 12:58] LABS: Color, Urine Yellow (Yellow); Glucose, Dipstick 100 mg/dl (Normal); Ketone-Dipstick Negative (Negative); Leukocyte Esterase-Dipstick Negative /ul (Negative); Nitrite-Dipstick Negative (Negative); Occult Blood-Urine Negative /ul (Negative); Protein-Dipstick Negative (Negative); Urine Bilirubin Dipstick Negative (Negative); Urine Clarity Sl. Cloudy (Clear); Urine Urobilinogen Normal (Normal)
== END | disposition home or self-care (01) ==
LOC: VSLAB 10:15
PROVIDERS: PCP Family Medicine; Visit Provider Family Medicine
DX: R07.9 Chest pain, unspecified (principal); R10.9 Unspecified abdominal pain
CPT/HCPCS: 36415; 80053; 81002; 84484; 85025; 87086; 87088

== ENCOUNTER → 2023-12-17 | Outpatient (CLI) | payer MEDICARE, MEDICAID, SELFPAY ==
[2023-12-17 13:27] LABS: Anion Gap 6 (5-15); BUN 10 mg/dL (7-18); BUN/Creat Ratio 13.7 RATIO (10-20); Calcium,Total 9.3 mg/dL (8.5-10.1); Chloride 104 mmol/L (98-107); Creatinine, Serum 0.73 mg/dL (0.55-1.02); EST Glomerular Filtration Rate 84 mL/min (>60); Est Glom Filt Rate - Afr Amer 101 mL/min (>60); Glucose 98 mg/dL (74-106); Potassium 4.6 mmol/L (3.5-5.1); Sodium Level 134 mmol/L (136-145)
== END | disposition home or self-care (01) ==
LOC: VSLAB 08:39
PROVIDERS: PCP Family Medicine; Visit Provider Nurse Practitioner Family
DX: E87.1 Hypo-osmolality and hyponatremia (principal)
CPT/HCPCS: 36415; 80048

== ENCOUNTER → 2024-01-14 | Outpatient (CLI) | payer MEDICARE, MEDICAID, SELFPAY ==
[2024-01-14 12:49] LABS: Absolute Lymphocyte Count 2.01 X10^3/uL (0.83-4.51); Absolute Neutrophil Count 3.8 X10^3/uL (2.0-7.7); Basophil# 0.08 X10^3/uL; Basophil% 1.2 % (0-1); Eosinophil# 0.09 X10^3/uL; Eosinophils% 1.3 % (0-5); Hematocrit 48.8 % (37-47); Hemoglobin 16.7 g/dL (12.0-15.0); Lymphocyte # 2.01 X10^3/ul (0.83-4.51); Lymphocyte % 30.1 % (19-41); Mean Corp Hgb Conc 34.2 g/dL (32-36); Mean Corpuscular Hgb 32.1 pg (27.0-32.0); Mean Corpuscular Volume 93.7 fL (81-99); Mean Platelet Vol. 9.6 fl (6.2-12.0); Monocyte# 0.74 X10^3/uL; Monocyte% 11.1 % (0-10); NRBC Flagged by Analyzer 0 % (0-5); Neutrophil # 3.75 X10^3/uL (2.7-7.7); Neutrophil % 56.2 % (47-70); Platelet Count 261 K/mm3 (150-450); RBC Distribution Width CV 12.7 % (11.6-14.6); RBC Distribution Width SD 43.8 fl (35.1-43.9); Red Blood Count 5.21 M/mm3 (4.2-5.4); White Blood Count 6.7 K/mm3 (4.4-11.0)
[2024-01-14 13:04] LABS: Vitamin B12 472 pg/mL (211-911); Vitamin D,25 Hydroxy 6.9 ng/mL
[2024-01-14 13:17] LABS: ALB/GLOB Ratio 1.1 RATIO (0.9-2.4); AST(SGOT) 23 U/L (15-37); Alanine Aminotransfer ALT/SGPT 22 U/L (13-56); Albumin, Serum 3.9 g/dL (3.2-5.0); Alkaline Phosphatase 79 U/L (45-117); Anion Gap 7 (5-15); BUN 10 mg/dL (7-18); BUN/Creat Ratio 14.9 RATIO (10-20); Calcium,Total 9.1 mg/dL (8.5-10.1); Chloride 102 mmol/L (98-107); Cholesterol 267 mg/dL (200); Creatinine, Serum 0.67 mg/dL (0.55-1.02); EST Glomerular Filtration Rate 92 mL/min (>60); Est Glom Filt Rate - Afr Amer 111 mL/min (>60); Globulin 3.5 g/dL (2.2-4.2); Glucose 105 mg/dL (74-106); High Density Lipoprotein 88 mg/dL; Potassium 4.5 mmol/L (3.5-5.1); Protein, Total 7.4 g/dL (6.4-8.2); Sodium Level 132 mmol/L (136-145); Triglycerides 153 mg/dL; Very Low Density Lipoprotein 31 mg/dL (5-40)
== END | disposition home or self-care (01) ==
LOC: VSLAB 09:48
PROVIDERS: PCP Family Medicine; Visit Provider Family Medicine
DX: I10 Essential (primary) hypertension (principal); E78.2 Mixed hyperlipidemia; E55.9 Vitamin D deficiency, unspecified; D51.9 Vitamin B12 deficiency anemia, unspecified
CPT/HCPCS: 36415; 80053; 80061; 82306; 82607; 84443; 85025

== ENCOUNTER → 2024-04-15 | Outpatient (CLI) | payer MEDICARE, MEDICAID, SELFPAY ==
[2024-04-15 13:28] LABS: Anion Gap 10 (5-15); BUN 9 mg/dL (7-18); BUN/Creat Ratio 11.5 RATIO (10-20); Calcium,Total 9.3 mg/dL (8.5-10.1); Chloride 102 mmol/L (98-107); Creatinine, Serum 0.79 mg/dL (0.55-1.02); EST Glomerular Filtration Rate 77 mL/min (>60); Est Glom Filt Rate - Afr Amer 93 mL/min (>60); Glucose 121 mg/dL (74-106); Potassium 4.6 mmol/L (3.5-5.1); Sodium Level 133 mmol/L (136-145)
== END | disposition home or self-care (01) ==
LOC: VSLAB 08:30
PROVIDERS: PCP Family Medicine; Visit Provider Nurse Practitioner Family
DX: E87.1 Hypo-osmolality and hyponatremia (principal)
CPT/HCPCS: 36415; 80048

== ENCOUNTER → 2024-04-30 | Outpatient (CLI) | payer MEDICARE, MEDICAID, SELFPAY ==
[2024-04-30 14:33] LABS: Hemoglobin A1c 5.2 % (3.8-5.6)
== END | disposition home or self-care (01) ==
LOC: VSLAB 09:32
PROVIDERS: PCP Family Medicine; Visit Provider Nurse Practitioner Family
DX: R73.9 Hyperglycemia, unspecified (principal)
CPT/HCPCS: 36415; 83036

== ENCOUNTER → 2024-05-28 | Outpatient (CLI) | payer MEDICARE, MEDICAID, SELFPAY ==
[2024-05-28 13:14] LABS: AST(SGOT) 22 U/L (<=31); Alanine Aminotransfer ALT/SGPT 11 U/L (<=34); Albumin, Serum 4.5 g/dL (3.4-4.8); Alkaline Phosphatase 91 U/L (35-104); Bilirubin, Direct 0.18 mg/dL (0.00-0.30); Cholesterol 284 mg/dL (<=200); High Density Lipoprotein 88 mg/dL; Low Density Lipoprotein Calc. 160 mg/dL; Protein, Total 7.6 g/dL (5.9-8.4); Total Bilirubin 0.45 mg/dL (0.00-1.30); Triglycerides 179 mg/dL; Very Low Density Lipoprotein 36 mg/dL (5-40); cholesterol:hdl ratio screen 3.22
== END | disposition home or self-care (01) ==
LOC: VSLAB 08:57
PROVIDERS: PCP Family Medicine; Visit Provider Physician Assistant Medical
DX: E78.00 Pure hypercholesterolemia, unspecified (principal)
CPT/HCPCS: 36415; 80061; 80076

== ENCOUNTER → 2024-07-15 | Outpatient (CLI) | payer MEDICARE, MEDICAID, SELFPAY ==
[2024-07-15 13:34] LABS: ALB/GLOB Ratio 1.6 RATIO (0.9-2.4); AST(SGOT) 19 U/L (<=31); Alanine Aminotransfer ALT/SGPT 9 U/L (<=34); Albumin, Serum 4.5 g/dL (3.4-4.8); Alkaline Phosphatase 80 U/L (35-104); Anion Gap 12 (5-15); BUN 11 mg/dL (4-19); BUN/Creat Ratio 14.5 RATIO (10-20); Calcium,Total 9.6 mg/dL (7.6-11.0); Carbon Dioxide 23.8 mmol/L (21.0-32.0); Chloride 100 mmol/L (98-108); Creatinine, Serum 0.76 mg/dL (0.70-1.20); EST Glomerular Filtration Rate 83 (>60); Globulin 2.8 g/dL (2.2-4.2); Glucose 122 mg/dL (70-99); Potassium 4.3 mmol/L (3.3-5.1); Protein, Total 7.3 g/dL (5.9-8.4); Sodium Level 136 mmol/L (133-145); Total Bilirubin 0.41 mg/dL (0.00-1.30); Vitamin D,25 Hydroxy 8.4 ng/mL (30-100)
== END | disposition home or self-care (01) ==
LOC: VSLAB 08:37
PROVIDERS: PCP Family Medicine; Visit Provider Nurse Practitioner Family
DX: I10 Essential (primary) hypertension (principal); E55.9 Vitamin D deficiency, unspecified
CPT/HCPCS: 36415; 80053; 82306

== ENCOUNTER → 2024-07-23 | Outpatient (CLI) | payer MEDICARE, MEDICAID, SELFPAY | END | disposition home or self-care (01) | PROVIDERS: PCP Family Medicine; Visit Provider Surgery | DX: L98.9 Disorder of the skin and subcutaneous tissue, unspecified (principal) | CPT/HCPCS: 88305 ==

== ENCOUNTER → 2024-10-27 | Outpatient (CLI) | payer MEDICARE, MEDICAID, SELFPAY ==
[2024-10-27 12:28] LABS: Hematocrit 47.7 % (37-47); Hemoglobin 16.2 g/dL (12.0-15.0); Immature Granulocytes Count 0.020 X10^3/uL (0.0-0.0); Mean Corp Hgb Conc 34.0 g/dL (32-36); Mean Corpuscular Volume 91.0 fL (81-99); Mean Platelet Vol. 10.4 fl (6.2-12.0); NRBC Flagged by Analyzer 0 % (0-5); Platelet Count 227 K/mm3 (150-450); RBC Distribution Width CV 12.2 % (11.6-14.6); RBC Distribution Width SD 41.0 fl (35.1-43.9); Red Blood Count 5.24 M/mm3 (4.2-5.4); White Blood Count 6.7 K/mm3 (4.4-11.0)
[2024-10-27 12:47] LABS: AST(SGOT) 20 U/L (<=31); Alanine Aminotransfer ALT/SGPT 10 U/L (<=34); Albumin, Serum 4.4 g/dL (3.4-4.8); Alkaline Phosphatase 76 U/L (35-104); Anion Gap 13 (5-15); BUN 12 mg/dL (4-19); BUN/Creat Ratio 16.8 RATIO (10-20); Calcium,Total 9.4 mg/dL (7.6-11.0); Carbon Dioxide 20.0 mmol/L (21.0-32.0); Chloride 98 mmol/L (98-108); Cholesterol 254 mg/dL (<=200); Globulin 2.9 g/dL (2.2-4.2); Glucose 116 mg/dL (70-99); Low Density Lipoprotein Calc. 139 mg/dL; Potassium 4.4 mmol/L (3.3-5.1); Triglycerides 104 mg/dL; Very Low Density Lipoprotein 21 mg/dL (5-40); cholesterol:hdl ratio screen 2.68
[2024-10-27 12:51] LABS: Vitamin D,25 Hydroxy 8.5 ng/mL (30-100)
== END | disposition home or self-care (01) ==
LOC: VSLAB 09:02
PROVIDERS: PCP Family Medicine; Visit Provider Nurse Practitioner Family
DX: E55.9 Vitamin D deficiency, unspecified (principal); E87.1 Hypo-osmolality and hyponatremia; I10 Essential (primary) hypertension; E78.2 Mixed hyperlipidemia
CPT/HCPCS: 36415; 80053; 80061; 82306; 84443; 85025